=== PATIENT | male | born 1935 | race American Indian/Alaskan Native ===

== ENCOUNTER 2021-07-01 02:51 | Emergency (ER) | payer MEDICARE, OTHER ==
--- NOTE | 2021-07-01 03:46 | Emergency Department Report ---
HPI - General Chief Complaint: Hypoglycemia Time Seen by Provider: 07/01/21 03:30 - HPI HPI: Room 4 The patient is an 86-year-old male present with chief complaint of hypoglycemia. Patient was sent from [facility] after he found to be persistently hypoglycemic. Nursing staff says around midnight the patient called him telling them he feels the blood glucose is low. An Accu-Chek revealed his glucose was 65. Patient was given juice peanut butter and milk and repeat Accu-Chek was 55. The patient was again given juice peanut butter and milk and his third Accu-Chek was 48 at this time EMS was called and arrived on scene to find the patient hypoglycemic at 24. Patient was given 100 mils of D10 and had a glucose of 97. Upon arrival to the ED patient had a glucose of 266. Patient currently denies complaints. Jeannette Duggan says the patient stutters at baseline and that he tested positive for Covid several days ago. ED Past Medical Hx - Past Medical History Hx Hypertension: Yes Hx Diabetes: Yes Hx Dementia: Yes Additional medical history: COVID - Surgical History Past Surgical History?: No - Family History Family history: no significant - Social History Smoking Status: Never Smoker Substance Use Type: None - Medications Home Medications: Home Medications Medication Instructions Recorded Confirmed Last Taken Type Amlodipine Besylate [Norvasc] 0 mg PO DAILY 09/07/14 09/07/14 09/06/14 History Aspirin [Aspirin BABY CHEW TAB] 81 mg PO DAILY 09/07/14 09/07/14 09/06/14 History 81 mg Insulin Lispro [HumaLOG VIAL] 5 units SUB-Q HS 09/07/14 09/07/14 09/06/14 History 5 units lisinopriL [Zestril TAB] 0 mg PO QDAY 09/07/14 09/07/14 09/06/14 History Azithromycin [Zithromax TAB] 500 mg PO QDAY 2 Days tablet 09/08/14 Unknown Rx guaiFENesin/CODEINE [Robitussin AC] 15 ml PO Q4H PRN #120 oral.liqd 09/08/14 Unknown Rx ED Review of Systems ROS: Stated complaint: LOW BLOOD SUGAR Other details as noted in HPI Constitutional: no symptoms reported Eyes: denies: eye pain ENT: denies: throat pain Respiratory: no symptoms reported Cardiovascular: denies: chest pain Endocrine: no symptoms reported Gastrointestinal: denies: abdominal pain Genitourinary: denies: dysuria Musculoskeletal: denies: back pain Neurological: denies: headache Physical Exam - Physical Exam Vital Signs: Vital Signs 07/01/21 02:58 Temperature 98.2 F Pulse Rate 68 Respiratory 18 Rate Blood Pressure 178/87 [Right] O2 Sat by Pulse 98 Oximetry Physical Exam: GENERAL: The patient is well-developed well-nourished male lying on stretcher not appearing to be in acute distress. [] HEENT: Normocephalic. Atraumatic. Extraocular motions are intact. Patient has moist mucous membranes. NECK: Supple. Trachea midline CHEST/LUNGS: Clear to auscultation. There is no respiratory distress noted. HEART/CARDIOVASCULAR: Regular. There is no tachycardia. There is no gallop rub or murmur. ABDOMEN: Abdomen is soft, nontender. Patient has normal bowel sounds. There is no abdominal distention. SKIN: There is no rash. There is no edema. There is no diaphoresis. NEURO: The patient is awake, alert, and oriented. The patient is cooperative. The patient has no focal neurologic deficits. The patient has normal speech. GCS 15 MUSCULOSKELETAL: There is no evidence of acute injury. ED Course Vital Signs 07/01/21 02:58 Temperature 98.2 F Pulse Rate 68 Respiratory 18 Rate Blood Pressure 178/87 [Right] O2 Sat by Pulse 98 Oximetry - Reevaluation(s) Reevaluation #1: 07/01/21 05:23 Glucose 230s Patient has been maintaining his glucose for 2.5 hours ED Medical Decision Making - Lab Data Result diagrams: 07/01/21 03:57 07/01/21 03:57 Laboratory Tests 07/01/21 07/01/21 07/01/21 03:23 03:57 03:57 WBC 5.0 RBC 3.77 Hgb 11.3 L Hct 35.7 MCV 95 H MCH 30 MCHC 32 RDW 13.0 L Plt Count 197 Lymph % (Auto) 21.0 [place] % (Auto) 5.7 Eos % (Auto) 1.7 Baso % (Auto) Rubber [place] Lymph # (Auto) 1.1 L [place] # (Auto) 0.3 Eos # (Auto) 0.1 Baso # (Auto) 0.0 Seg Neutrophils % 71.4 H Seg Neutrophils # 3.6 Sodium 137 Potassium 4.3 Chloride 98.0 Carbon Dioxide 23 Anion Gap 20 BUN 22 H Creatinine 1.5 H Estimated GFR 54 BUN/Creatinine Ratio 15 Glucose 341 H POC Glucose 266 H Calcium 9.5 - Differential Diagnosis Hypoglycemia Critical care attestation.: If time is entered above; I have spent that time in minutes in the direct care of this critically ill patient, excluding procedure time. ED Disposition Clinical Impression: Hypoglycemia Disposition: 03 RETIREMENT FACILITY Is pt being admited?: No Does the pt Need Aspirin: No Condition: Stable Additional Instructions: Return to the emergency department should you develop worsening symptoms, inability to tolerate food or liquids, high fever or any other concerns Referrals: PRIMARY CAREMD [Primary Care Provider] - 3-5 Days Time of Disposition: 05:24
[2021-07-01 04:22] LABS: Calcium 9.5 mg/dL (8.4-10.2)
[2021-07-01 04:25] LABS: Eosinophils # (Auto) 0.1 K/mm3 (0.0-0.4); Eosinophils % (Auto) 1.7 % (0.0-4.3); Hematocrit 35.7 % (35.5-45.6); Hemoglobin 11.3 gm/dl (11.8-15.2); Lymphocytes # (Auto) 1.1 K/mm3 (1.2-5.4); Mean Corpuscular HGB Conc 32 % (32-34); Mean Corpuscular Volume 95 fl (84-94); Monocytes # (Auto) 0.3 K/mm3 (0.0-0.8); Monocytes % (Auto) 5.7 % (0.0-7.3); Platelet Count 197 K/mm3 (140-440); Red Blood Count 3.77 M/mm3 (3.65-5.03)
[2021-07-01] MEDS ORDERED: SUCCINYLCHOLINE CHLORIDE 200 MG/10 ML INJ MDV ONE (06:20)
[2021-07-01] MEDS ORDERED: ETOMIDATE 20 MG/10 ML INJ IV ONE (06:20)
[2021-07-01 06:46] VITALS: BP 169/78
== END 2021-07-01 12:10 ==
LOC: ED 02:51
DX: E16.2 Hypoglycemia, unspecified (principal); I10 Essential (primary) hypertension; E11.8 Type 2 diabetes mellitus with unspecified complications
CPT/HCPCS: 36415; 80048; 82962; 85025; 99283; J0330; J3490

== ENCOUNTER 2021-09-23 16:28 | Emergency (ER) | payer MEDICARE, OTHER ==
--- NOTE | 2021-09-23 17:14 | Emergency Department Report ---
ED Altered Mental Status HPI - General Chief Complaint: Psych Stated Complaint: MH EVAL Time Seen by Provider: 09/23/21 17:04 Source: EMS Mode of arrival: Stretcher Limitations: No Limitations - History of Present Illness Initial Comments: Chief complaint: "I am here to have my eyes checked." HPI: This is an 86-year-old male with history of vascular dementia, glaucoma, hypertension, diabetes mellitus who was sent here from assisted living facility for agitation. He reported to triage nurse that caretakers are not helping him with his car. He denies any other concerns. POA daughter Awilda Hutchinson at [phone]. She was able to give additional information. Patient was combative. He was throwing objects according to the report given to her by the assisted living facility attendance. She informed me that he tends to act out when he desires attention. He has been asking for his eyes to be evaluated for the past 2 weeks. She has made an appointment through the [facility] scheduled on . [facility] Complaint: other (Agitation) -: Gradual, This afternoon Severity: mild Consistency of Symptoms: waxing and waning Associated Symptoms: other ("I need my eyes checked.") - Related Data Home Medications Medication Instructions Recorded Confirmed Last Taken Amlodipine Besylate [Norvasc] 10 mg PO DAILY 09/07/14 09/24/21 09/06/14 Aspirin [Aspirin BABY CHEW TAB] 81 mg PO DAILY 09/07/14 09/24/21 09/06/14 81 mg lisinopriL [Zestril TAB] 40 mg PO QDAY 09/07/14 09/24/21 09/06/14 AtorvaSTATin [Lipitor] 20 mg PO QHS 09/24/21 09/24/21 Unknown Brimonidine Tartrate [Brimonidine 1 drop OP Q8HR 09/24/21 09/24/21 Unknown Tartrate 0.2%] Cyanocobalamin (Vitamin B-12) 500 mg PO QDAY 09/24/21 09/24/21 Unknown [Vitamin B-12] Fluorometholone [Fml S.o.p] 3.5 gm OP QDAY 09/24/21 09/24/21 Unknown Insulin Aspart Flexpen 12 units SUB-Q ACHS 09/24/21 09/24/21 Unknown Latanoprost 0.005% 1 drop OP HS 09/24/21 09/24/21 Unknown Melatonin 3MG TAB 3 mg PO HS 09/24/21 09/24/21 Unknown Metformin 2,000 mg PO DAILY 09/24/21 09/24/21 Unknown Methazolamide 500 mg PO BID 09/24/21 09/24/21 Unknown Omeprazole 20 mg PO QDAY 09/24/21 09/24/21 Unknown Sertraline [Zoloft] 150 mg PO QDAY 09/24/21 09/24/21 Unknown Sildenafil Citrate 50 mg PO 1XW PRN MDD 1 TAB 09/24/21 09/24/21 Unknown buPROPion HCL [Bupropion Xl] 150 mg PO QDAY 09/24/21 09/24/21 Unknown carvediloL [Coreg] 12.5 mg PO BID 09/24/21 09/24/21 Unknown risperiDONE [RisperDAL] 0.5 mg PO QHS 09/24/21 09/24/21 Unknown Allergies Allergy/AdvReac Type Severity Reaction Status Date / Time No Known Allergies Allergy Verified 09/23/21 16:39 ED Review of Systems ROS: Stated complaint: MH EVAL Other details as noted in HPI Comment: Unobtainable due to pts medical conditions (Dementia) ED Past Medical Hx - Past Medical History Previous Medical History?: Yes Hx Hypertension: Yes Hx Diabetes: Yes Hx Dementia: Yes Additional medical history: COVID - Surgical History Additional Surgical History: Unable to obtain this information - Family History Family history: no significant - Social History Smoking Status: Never Smoker Substance Use Type: None - Medications Home Medications: Home Medications Medication Instructions Recorded Confirmed Last Taken Type Amlodipine Besylate [Norvasc] 10 mg PO DAILY 09/07/14 09/24/21 09/06/14 History Aspirin [Aspirin BABY CHEW TAB] 81 mg PO DAILY 09/07/14 09/24/21 09/06/14 History 81 mg lisinopriL [Zestril TAB] 40 mg PO QDAY 09/07/14 09/24/21 09/06/14 History AtorvaSTATin [Lipitor] 20 mg PO QHS 09/24/21 09/24/21 Unknown History Brimonidine Tartrate [Brimonidine 1 drop OP Q8HR 09/24/21 09/24/21 Unknown History Tartrate 0.2%] Cyanocobalamin (Vitamin B-12) 500 mg PO QDAY 09/24/21 09/24/21 Unknown History [Vitamin B-12] Fluorometholone [Fml S.o.p] 3.5 gm OP QDAY 09/24/21 09/24/21 Unknown History Insulin Aspart Flexpen 12 units SUB-Q ACHS 09/24/21 09/24/21 Unknown History Latanoprost 0.005% 1 drop OP HS 09/24/21 09/24/21 Unknown History Melatonin 3MG TAB 3 mg PO HS 09/24/21 09/24/21 Unknown History Metformin 2,000 mg PO DAILY 09/24/21 09/24/21 Unknown History Methazolamide 500 mg PO BID 09/24/21 09/24/21 Unknown History Omeprazole 20 mg PO QDAY 09/24/21 09/24/21 Unknown History Sertraline [Zoloft] 150 mg PO QDAY 09/24/21 09/24/21 Unknown History Sildenafil Citrate 50 mg PO 1XW PRN MDD 1 TAB 09/24/21 09/24/21 Unknown History buPROPion HCL [Bupropion Xl] 150 mg PO QDAY 09/24/21 09/24/21 Unknown History carvediloL [Coreg] 12.5 mg PO BID 09/24/21 09/24/21 Unknown History risperiDONE [RisperDAL] 0.5 mg PO QHS 09/24/21 09/24/21 Unknown History ED Physical Exam - General Limitations: No Limitations General appearance: alert, in no apparent distress, other (GCS 14: Unclear of location or date. Sitting upright comfortably with legs crossed left ankle. Cooperative) - Head Head exam: Present: atraumatic, normocephalic - Eye Eye exam: Absent: scleral icterus, conjunctival injection - ENT ENT exam: Present: mucous membranes moist - Neck Neck exam: Present: normal inspection, full ROM - Respiratory Respiratory exam: Present: normal lung sounds bilaterally. Absent: respiratory distress, wheezes, rales, rhonchi - Cardiovascular Cardiovascular Exam: Present: regular rate, normal rhythm, normal heart sounds. Absent: systolic murmur, diastolic murmur, rubs, gallop - GI/Abdominal GI/Abdominal exam: Present: soft, normal bowel sounds. Absent: distended, tenderness, guarding, rebound - Rectal Rectal exam: Present: deferred - Extremities Exam Extremities exam: Present: normal inspection - Neurological Exam Neurological exam: Present: alert, other (Oriented to name, unclear of place date location or situation) - Psychiatric Psychiatric exam: Present: agitated (Slightly agitated but cooperative) - Skin Skin exam: Present: warm, dry, intact, normal color. Absent: rash ED Course Vital Signs 09/23/21 09/23/21 09/23/21 16:36 20:23 23:08 Temperature 98.4 F Pulse Rate 82 73 78 Respiratory 16 14 15 Rate Blood Pressure 145/76 Blood Pressure 152/68 145/76 156/79 [Left] O2 Sat by Pulse 100 98 99 Oximetry 09/24/21 09/24/21 09/24/21 00:30 01:47 04:33 Temperature Pulse Rate 74 79 73 Respiratory 15 17 12 Rate Blood Pressure Blood Pressure 154/79 134/74 130/69 [Left] O2 Sat by Pulse 98 97 97 Oximetry 09/24/21 09/24/21 09/24/21 05:29 06:00 07:00 Temperature Pulse Rate 72 72 70 Respiratory 14 15 13 Rate Blood Pressure Blood Pressure 125/66 139/68 119/63 [Left] O2 Sat by Pulse 98 98 97 Oximetry 09/24/21 09/24/21 09/24/21 09:21 10:06 11:28 Temperature Pulse Rate 73 76 Respiratory 12 Rate Blood Pressure Blood Pressure 121/69 129/75 [Left] O2 Sat by Pulse 99 99 Oximetry 09/24/21 13:53 Temperature Pulse Rate 79 Respiratory Rate Blood Pressure Blood Pressure 147/78 [Left] O2 Sat by Pulse Oximetry - Lab Data Result diagrams: 09/23/21 17:13 09/23/21 17:13 Lab Results 09/23/21 09/23/21 09/23/21 Range/Units 17:13 17:13 17:33 WBC 4.8 (4.5-11.0) K/mm3 RBC 3.38 L (3.65-5.03) M/mm3 Hgb 10.1 L (11.8-15.2) gm/dl Hct 31.5 L (35.5-45.6) % MCV 93 (84-94) fl MCH 30 (28-32) pg MCHC 32 (32-34) % RDW 14.3 (13.2-15.2) % Plt Count 221 (140-440) K/mm3 Lymph % (Auto) 37.7 H (13.4-35.0) % [place] % (Auto) 11.4 H (0.0-7.3) % Eos % (Auto) 5.0 H (0.0-4.3) % Baso % (Auto) 0.9 (0.0-1.8) % Lymph # (Auto) 1.8 (1.2-5.4) K/mm3 [place] # (Auto) 0.5 (0.0-0.8) K/mm3 Eos # (Auto) 0.2 (0.0-0.4) K/mm3 Baso # (Auto) 0.0 (0.0-0.1) K/mm3 Seg Neutrophils % 45.0 (40.0-70.0) % Seg Neutrophils # 2.2 (1.8-7.7) K/mm3 Sodium 139 (137-145) mmol/L Potassium 4.8 (3.6-5.0) mmol/L Chloride 104.9 (98-107) mmol/L Carbon Dioxide 22 (22-30) mmol/L Anion Gap 17 mmol/L BUN 16 (9-20) mg/dL Creatinine 1.4 H (0.8-1.3) mg/dL Estimated GFR 58 ml/min BUN/Creatinine Ratio 11 % Glucose 173 H (75-100) mg/dL Calcium 9.5 (8.4-10.2) mg/dL Urine Color (Yellow) Urine Turbidity (Clear) Urine pH (5.0-7.0) Ur Specific [place] (1.003-1.030) Urine Protein (Negative) mg/dL Urine Glucose (UA) (Negative) mg/dL Urine Ketones (Negative) mg/dL Urine Blood (Negative) Urine Nitrite (Negative) Urine Bilirubin (Negative) Urine Urobilinogen (<2.0) mg/dL Ur Leukocyte Esterase (Negative) Urine WBC (Auto) (0.0-6.0) /HPF Urine RBC (Auto) (0.0-6.0) /HPF Salicylates < 0.3 L (2.8-20.0) mg/dL Acetaminophen (10.0-30.0) ug/mL Plasma/Serum Alcohol (0-0.07) % Coronavirus (PCR) (Negative) 09/23/21 09/23/21 09/24/21 Range/Units 17:33 17:33 03:22 WBC (4.5-11.0) K/mm3 RBC (3.65-5.03) M/mm3 Hgb (11.8-15.2) gm/dl Hct (35.5-45.6) % MCV (84-94) fl MCH (28-32) pg MCHC (32-34) % RDW (13.2-15.2) % Plt Count (140-440) K/mm3 Lymph % (Auto) (13.4-35.0) % [place] % (Auto) (0.0-7.3) % Eos % (Auto) (0.0-4.3) % Baso % (Auto) (0.0-1.8) % Lymph # (Auto) (1.2-5.4) K/mm3 [place] # (Auto) (0.0-0.8) K/mm3 Eos # (Auto) (0.0-0.4) K/mm3 Baso # (Auto) (0.0-0.1) K/mm3 Seg Neutrophils % (40.0-70.0) % Seg Neutrophils # (1.8-7.7) K/mm3 Sodium (137-145) mmol/L Potassium (3.6-5.0) mmol/L Chloride (98-107) mmol/L Carbon Dioxide (22-30) mmol/L Anion Gap mmol/L BUN (9-20) mg/dL Creatinine (0.8-1.3) mg/dL Estimated GFR ml/min BUN/Creatinine Ratio % Glucose (75-100) mg/dL Calcium (8.4-10.2) mg/dL Urine Color Yellow (Yellow) Urine Turbidity Clear (Clear) Urine pH 6.0 (5.0-7.0) Ur Specific [place] 1.009 (1.003-1.030) Urine Protein <15 mg/dl (Negative) mg/dL Urine Glucose (UA) Neg (Negative) mg/dL Urine Ketones Neg (Negative) mg/dL Urine Blood Neg (Negative) Urine Nitrite Neg (Negative) Urine Bilirubin Neg (Negative) Urine Urobilinogen 2.0 (<2.0) mg/dL Ur Leukocyte Esterase Neg (Negative) Urine WBC (Auto) < 1.0 (0.0-6.0) /HPF Urine RBC (Auto) 1.0 (0.0-6.0) /HPF Salicylates (2.8-20.0) mg/dL Acetaminophen 5.0 L (10.0-30.0) ug/mL Plasma/Serum Alcohol < 0.01 (0-0.07) % Coronavirus (PCR) (Negative) 09/24/21 Range/Units Unknown WBC (4.5-11.0) K/mm3 RBC (3.65-5.03) M/mm3 Hgb (11.8-15.2) gm/dl Hct (35.5-45.6) % MCV (84-94) fl MCH (28-32) pg MCHC (32-34) % RDW (13.2-15.2) % Plt Count (140-440) K/mm3 Lymph % (Auto) (13.4-35.0) % [place] % (Auto) (0.0-7.3) % Eos % (Auto) (0.0-4.3) % Baso % (Auto) (0.0-1.8) % Lymph # (Auto) (1.2-5.4) K/mm3 [place] # (Auto) (0.0-0.8) K/mm3 Eos # (Auto) (0.0-0.4) K/mm3 Baso # (Auto) (0.0-0.1) K/mm3 Seg Neutrophils % (40.0-70.0) % Seg Neutrophils # (1.8-7.7) K/mm3 Sodium (137-145) mmol/L Potassium (3.6-5.0) mmol/L Chloride (98-107) mmol/L Carbon Dioxide (22-30) mmol/L Anion Gap mmol/L BUN (9-20) mg/dL Creatinine (0.8-1.3) mg/dL Estimated GFR ml/min BUN/Creatinine Ratio % Glucose (75-100) mg/dL Calcium (8.4-10.2) mg/dL Urine Color (Yellow) Urine Turbidity (Clear) Urine pH (5.0-7.0) Ur Specific [place] (1.003-1.030) Urine Protein (Negative) mg/dL Urine Glucose (UA) (Negative) mg/dL Urine Ketones (Negative) mg/dL Urine Blood (Negative) Urine Nitrite (Negative) Urine Bilirubin (Negative) Urine Urobilinogen (<2.0) mg/dL Ur Leukocyte Esterase (Negative) Urine WBC (Auto) (0.0-6.0) /HPF Urine RBC (Auto) (0.0-6.0) /HPF Salicylates (2.8-20.0) mg/dL Acetaminophen (10.0-30.0) ug/mL Plasma/Serum Alcohol (0-0.07) % Coronavirus (PCR) Negative (Negative) - Medical Decision Making This is an 86-year-old male with history of glaucoma, vascular dementia who presents to the hospital to have his "eyes checked". His vision appears to be unchanged according to his report. 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 He only has 20% vision in either eye according to his report. Assisted-living facility reported to paramedics that patient has been agitated. Collateral history from daughter and POA reveals that patient was combative and throwing objects. He is medically clear for psychiatric care. Awaiting mental health recommendations. Daughter is agreeable for discharge back to assisted living facility or admission to geriatric psych unit. She did not have any acute concerns. He has history of destructive behavior as a result of dementia. I discussed case with mental health strike off machine operator. Mental health strike off machine operator recommended admission to [facility] once coronavirus PCR test returns as negative. Patient will be reevaluated in the morning. Patient is medically clear for psychiatric care. After 24 hour observation, mental health team has cleared patient for discharge. [facility] Coronavirus PCR negative. Urinalysis negative. CBC chemistry unremarkable. Critical care attestation.: If time is entered above; I have spent that time in minutes in the direct care of this critically ill patient, excluding procedure time. ED Disposition Clinical Impression: Dementia Disposition: 03 CARE HOME FACILITY Is pt being admited?: No Does the pt Need Aspirin: No Condition: Stable
[2021-09-23 17:40] LABS: Basophils % (Auto) 0.9 % (0.0-1.8); Eosinophils # (Auto) 0.2 K/mm3 (0.0-0.4); Hematocrit 31.5 % (35.5-45.6); Hemoglobin 10.1 gm/dl (11.8-15.2); Lymphocytes # (Auto) 1.8 K/mm3 (1.2-5.4); Lymphocytes % (Auto) 37.7 % (13.4-35.0); Mean Corpuscular HGB Conc 32 % (32-34); Mean Corpuscular Volume 93 fl (84-94); Monocytes # (Auto) 0.5 K/mm3 (0.0-0.8); Monocytes % (Auto) 11.4 % (0.0-7.3); Platelet Count 221 K/mm3 (140-440); Red Blood Count 3.38 M/mm3 (3.65-5.03); Red Cell Distribution Width 14.3 % (13.2-15.2)
[2021-09-23 18:04] LABS: Calcium 9.5 mg/dL (8.4-10.2)
[2021-09-24 03:55] LABS: Bilirubin,Urine NEG (Negative); Blood,Urine NEG (Negative); Color,Urine Yellow (Yellow); Protein,Urine <15 mg/dL mg/dL (Negative)
[2021-09-24 04:00] LABS: WBC,Urine < 1.0 /HPF (0.0-6.0)
[2021-09-24 13:54] VITALS: BP 147/78
--- NOTE | 2021-09-24 14:10 | Consultation ---
History of Present Illness - Reason for Consult Consult date: 09/24/21 Reason for consult: mental health evaluation - History of Present Psychiatric Illness ED Note: This is an 86-year-old male with history of vascular dementia, glaucoma, hypertension, diabetes mellitus who was sent here from assisted living facility for agitation. He reported to triage nurse that caretakers are not helping him with his car. He denies any other concerns. POA daughter Awilda Hutchinson at [phone]. She was able to give additional information. Patient was combative. He was throwing objects according to the report given to her by the assisted living facility attendance. She informed me that he tends to act out when he desires attention. He has been asking for his eyes to be evaluated for the past 2 weeks. She has made an appointment through the [facility] scheduled on . The patient is an 86 year old male with history of Dementia. In my encounter with the patient, she is calm, alert and oriented x2. The patient states he stopped taking medications " because it was not doing any good. " The patient is complaining of his assisted living " they get left over food from another floor." He denies any current suicidal/homicidal ideation and denies hallucinations. No aggressive behavior reported by the nurse. Diagnoses: Schizophrenia Suicide attempts or Self-harm behavior: Unknown Prior psychiatric hospitalizations: Unknown Substance Abuse history: Denies Previous psychiatric medications tried: Unable to recall PAST MEDICAL HISTORY: unknown Family Psychiatric History: None reported or documented SOCIAL HISTORY REVIEW OF SYSTEMS Constitutional: Negative for weight loss ENT: Negative for stridor Respiratory: Negative for cough or hemoptysis All other systems reviewed and are negative MENTAL STATUS EXAMINATION General Appearance and Behavior: Age appropriate, good hygiene, wearing appropriate clothes, calm, cooperative Cooperation: Participating/engaged Psychomotor Behavior: Normal Mood: "ok" Affect and affective range: congruent with mood Thought Process: Goal directed Thought Content: Reality oriented Speech: Normal volume, Regular rate and rhythm, Suicidal Ideation: Denies Homicidal Ideation: Denies Hallucinations: Denies Delusions: None elicited Impulse Control: Unimpaired Insight and Judgment: Limited insight and judgment, Memory: Normal, Attention: Normal Orientation: Alert, oriented x2 Assessment and Plan (1)Hx of Dementia Current Visit: Yes Status: Acute Treatment Plan The patient needs to follow up with his outpatient psychiatrist and therapist. Continue home meds Disposition: Do not recommend psychiatric inpatient admission at this time. [employer] will provide patient with psychiatric outpatient resources. Will sign off. Thanks Case staffed with Dr. Arreguin Medications and Allergies Medications and Allergies Allergies Allergy/AdvReac Type Severity Reaction Status Date / Time No Known Allergies Allergy Verified 09/23/21 16:39 Home Medications Medication Instructions Recorded Confirmed Last Taken Type Amlodipine Besylate [Norvasc] 0 mg PO DAILY 09/07/14 09/07/14 09/06/14 History Aspirin [Aspirin BABY CHEW TAB] 81 mg PO DAILY 09/07/14 09/07/14 09/06/14 History 81 mg Insulin Lispro [HumaLOG VIAL] 5 units SUB-Q HS 09/07/14 09/07/14 09/06/14 History 5 units lisinopriL [Zestril TAB] 0 mg PO QDAY 09/07/14 09/07/14 09/06/14 History Azithromycin [Zithromax TAB] 500 mg PO QDAY 2 Days tablet 09/08/14 Unknown Rx guaiFENesin/CODEINE [Robitussin AC] 15 ml PO Q4H PRN #120 oral.liqd 09/08/14 Unknown Rx Mental Status Exam - Vital signs Last Vital Signs Temp 98.4 F 09/23/21 16:36 Pulse 79 09/24/21 13:53 Resp 12 09/24/21 09:21 BP 147/78 09/24/21 13:53 Pulse Ox 99 09/24/21 11:28 Results Result Diagrams: 09/23/21 17:13 09/23/21 17:13 Abnormal lab results 09/23/21 09/23/21 09/23/21 Range/Units 17:13 17:13 17:33 RBC 3.38 L (3.65-5.03) M/mm3 Hgb 10.1 L (11.8-15.2) gm/dl Hct 31.5 L (35.5-45.6) % Lymph % (Auto) 37.7 H (13.4-35.0) % [place] % (Auto) 11.4 H (0.0-7.3) % Eos % (Auto) 5.0 H (0.0-4.3) % Creatinine 1.4 H (0.8-1.3) mg/dL Glucose 173 H (75-100) mg/dL Salicylates < 0.3 L (2.8-20.0) mg/dL Acetaminophen (10.0-30.0) ug/mL 09/23/21 Range/Units 17:33 RBC (3.65-5.03) M/mm3 Hgb (11.8-15.2) gm/dl Hct (35.5-45.6) % Lymph % (Auto) (13.4-35.0) % [place] % (Auto) (0.0-7.3) % Eos % (Auto) (0.0-4.3) % Creatinine (0.8-1.3) mg/dL Glucose (75-100) mg/dL Salicylates (2.8-20.0) mg/dL Acetaminophen 5.0 L (10.0-30.0) ug/mL All other labs normal.
== END 2021-09-24 21:01 ==
LOC: ED 16:28
DX: F03.90 Unspecified dementia, unspecified severity, without behavioral disturbance, psychotic disturbance, mood disturbance, and anxiety (principal); I10 Essential (primary) hypertension; E11.9 Type 2 diabetes mellitus without complications; Z20.822 Contact with and (suspected) exposure to COVID-19
CPT/HCPCS: 36415; 80048; 81001; 82962; 85025; 99284; U0003; 80320; G0480

== ENCOUNTER 2021-12-26 16:58 | Inpatient (IN) | payer MEDICARE ==
[2021-12-27] MEDS ORDERED: METHAZOLAMIDE 50 MG PO SCH (10:45)
[2021-12-27] MEDS ORDERED: FLUOROMETHOLONE OP SCH (10:45)
[2021-12-27] MEDS ORDERED: NON-FORMULARY EACH (Omeprazole [Omeprazole] 20 MG Capsule.Dr) PO SCH (10:45)
[2021-12-27] MEDS ORDERED: NON-FORMULARY EACH (Amlodipine Besylate [Norvasc] 2.5 MG Tablet) PO SCH (10:45)
[2021-12-27] MEDS ORDERED: CYANOCOBALAMIN 500 MCG PO SCH (10:45)
[2021-12-27] MEDS ORDERED: LISINOPRIL 5 MG TAB PO SCH (11:00)
[2021-12-27] MEDS ORDERED: INSULIN ASPART 12 UNIT SUB-Q SCH (11:30)
--- NOTE | 2021-12-27 12:19 | Consultation ---
History of Present Illness - Reason for Consult Consult date: 12/27/21 Medical Management Requesting physician: THA FLORES - History of Present Illness 86 YO Male with Vascular Dementia with Behavioral Disturbance, Cerebral Atherosclerosis, HTN, HLD, DM, GERD, CKD, MARGARETH admitted to [facility] unit for psychiatric stabilization. Consult placed by Dr. Flores for medical management. Patient seen and evaluated in the recreation room. Patient resting calmly. Patient denies fever, chills, chest pain, palpitation, productive cough, skin rash, recent contact, known exposure to COVID-19. Patient has diminished cognition but appears to be at baseline level of cognition and function. Past History Past Medical History: diabetes, GERD, hypertension, hyperlipidemia, renal failure Past Surgical History: No surgical history, Other (Reviewed) Social history: . denies: smoking, alcohol abuse, prescription drug abuse Family history: diabetes, hypertension Medications and Allergies Allergies Allergy/AdvReac Type Severity Reaction Status Date / Time No Known Allergies Allergy Verified 09/23/21 16:39 Home Medications Medication Instructions Recorded Confirmed Last Taken Type Amlodipine Besylate [Norvasc] 10 mg PO DAILY 09/07/14 12/27/21 09/06/14 History Aspirin [Aspirin BABY CHEW TAB] 81 mg PO DAILY 09/07/14 12/27/21 09/06/14 History 81 mg lisinopriL [Zestril TAB] 40 mg PO QDAY 09/07/14 12/27/21 09/06/14 History AtorvaSTATin [Lipitor] 20 mg PO QHS 09/24/21 12/27/21 Unknown History Brimonidine Tartrate [Brimonidine 1 drop OP Q8HR 09/24/21 12/27/21 Unknown History Tartrate 0.2%] Cyanocobalamin (Vitamin B-12) 500 mg PO QDAY 09/24/21 12/27/21 Unknown History [Vitamin B-12] Fluorometholone [Fml S.o.p] 3.5 gm OP QDAY 09/24/21 12/27/21 Unknown History Insulin Aspart Flexpen 12 units SUB-Q ACHS 09/24/21 12/27/21 Unknown History Omeprazole 20 mg PO QDAY 09/24/21 12/27/21 Unknown History Sertraline [Zoloft] 150 mg PO QDAY 09/24/21 12/27/21 Unknown History Sildenafil Citrate 50 mg PO 1XW PRN MDD 1 TAB 09/24/21 12/27/21 Unknown History buPROPion HCL [Bupropion Xl] 150 mg PO QDAY 09/24/21 12/27/21 Unknown History carvediloL [Coreg] 25 mg PO BID 09/24/21 12/27/21 Unknown History risperiDONE [RisperDAL] 0.5 mg PO QHS 09/24/21 12/27/21 Unknown History Latanoprost 0.005% [Xalatan 0.005%] 1 drop OP QPM 12/27/21 12/27/21 Unknown History Melatonin [Melatonin 3MG TAB] 3 mg PO HS 12/27/21 12/27/21 Unknown History metFORMIN XR [Glucophage XR] 500 mg PO QDAY 12/27/21 12/27/21 Unknown History methazolAMIDE [Methazolamide] 50 mg PO BID 12/27/21 12/27/21 Unknown History Active Meds: Active Medications Aspirin (Aspirin 81 Mg Tab Chew) 81 mg PO DAILY [facility] Atorvastatin Calcium (Atorvastatin 20 Mg Tab) 20 mg PO QHS [facility] Bupropion HCl (Bupropion Xl 150 Mg Tab) 150 mg PO QDAY [facility] Carvedilol (Carvedilol 25 Mg Tab) 25 mg PO BID [facility] Insulin Human Lispro (Insulin Lispro 100 Unit/Ml) 12 unit SUB-Q ACHS [facility] Latanoprost (Latanoprost 0.005% Ophth Soln 2.5 Ml) 1 drops OU QPM [facility] Lisinopril (Lisinopril 40 Mg Tab) 40 mg PO QDAY [facility] Melatonin (Melatonin 5 Mg Tab) 5 mg PO QHS [facility] Metformin HCl (Metformin Xr 500mg Tab) 500 mg PO QDDIAB [facility] Miscellaneous Medication (Amlodipine Besylate [Norvasc]) 10 mg PO DAILY [facility] Miscellaneous Medication (Brimonidine Tartrate [Brimonidine Tartrate 0.2%]) 1 drop OP Q8HR [facility] Miscellaneous Medication (Cyanocobalamin (Vitamin B-12) [Vitamin B-12]) 500 mg PO QDAY [facility] Miscellaneous Medication (Fluorometholone [Fml S.O.P. 0.25%]) 3.5 gm OP QDAY [facility] Miscellaneous Medication (Methazolamide [Methazolamide]) 50 mg PO BID [facility] Pantoprazole Sodium (Pantoprazole 20 Mg Tab) 20 mg PO QDAY [facility] Risperidone (Risperidone 1 Mg Tab) 0.5 mg PO QHS [facility] Sertraline HCl (Sertraline 50 Mg Tab) 150 mg PO QDAY [facility] Review of Systems Constitutional: no weight loss, no weight gain, no fever, no chills Ears, nose, mouth and throat: no ear pain, no ear discharge, no decreased hea ring, no nose pain, no nasal discharge Cardiovascular: no chest pain, no orthopnea, no palpitations, no edema Respiratory: no cough, no cough with sputum, no excessive sputum Gastrointestinal: no abdominal pain, no nausea, no diarrhea, no constipation, no change in bowel habits Genitourinary Male: no hematuria, no flank pain, no discharge, no urinary frequency, no urinary hesitancy Rectal: no pain, no incontinence, no bleeding Musculoskeletal: no neck stiffness, no shooting leg pain, no redness of joints Integumentary: no rash, no pruritis, no sores, no wounds Neurological: no head injury, no transient paralysis, no paralysis, no parathesias, no numbness, no syncope Psychiatric: anxiety, mood swings Endocrine: no cold intolerance, no polyphagia, no excessive thirst Hematologic/Lymphatic: no easy bruising, no easy bleeding Allergic/Immunologic: no allergic rhinitis, no wheezing Exam - Constitutional Vitals: Temp Pulse Resp BP Pulse Ox 97.5 F L 85 16 130/75 98 12/27/21 11:06 12/27/21 11:06 12/27/21 11:06 12/27/21 11:06 12/27/21 11:06 General appearance: Present: no acute distress - EENT Eyes: Present: PERRL ENT: clear oral mucosa, hearing decreased - Neck Neck: Present: supple, normal ROM - Respiratory Respiratory effort: normal Respiratory: bilateral: diminished - Cardiovascular Heart Sounds: Present: S1 & S2. Absent: rub, click - Extremities Extremities: pulses symmetrical, No edema Peripheral Pulses: within normal limits - Abdominal General gastrointestinal: Present: soft, non-tender, non-distended, normal bowel sounds Male genitourinary: Present: normal - Integumentary Integumentary: Present: clear, warm, dry - Musculoskeletal Musculoskeletal: gait normal, strength equal bilaterally - Psychiatric Psychiatric: cooperative - Neurologic Neurologic: CNII-XII intact, moves all extremities Assessment and Plan - Patient Problems (1) Vascular dementia with behavioral disturbance Current Visit: Yes Status: Acute Plan to address problem: Verbal prompting, verbal redirection, benzodiazepine therapy as clinically indicated. (2) Cerebral atherosclerosis Current Visit: Yes Status: Acute Plan to address problem: Antiplatelet therapy as clinically indicated, risk factor reduction. (3) Hypertension Current Visit: Yes Status: Acute Qualifiers: Hypertension type: primary hypertension Qualified Code(s): I10 - Essential (primary) hypertension Plan to address problem: Monitor blood pressure every shift, continue medical management. (4) Hyperlipidemia Current Visit: Yes Status: Acute Qualifiers: Hyperlipidemia type: mixed hyperlipidemia Qualified Code(s): E78.2 - Mixed hyperlipidemia Plan to address problem: Statin therapy, low-cholesterol diet (5) Diabetes Current Visit: Yes Status: Acute Plan to address problem: Consistent carbohydrate diet, Accu-Chek, continue oral antihyperglycemic therapy, hypoglycemia protocol. (6) Advance care planning Current Visit: Yes Status: Acute Plan to address problem: Disease education done, care plan discussed, diagnoses discussed, prognosis discussed, patient is full code. Patient acknowledges understanding and agreement with care plan, +30 minutes. (7) Preventative health care Current Visit: Yes Status: Acute Plan to address problem: Patient counseled regarding risk factor reduction, home safety measures, outpatient follow-up with primary care physician for all age and risk factor appropriate screening test, +30 minutes.
[2021-12-27] MEDS: buPROPion XL 150 MG TAB PO SCH (12:45)
[2021-12-27] MEDS: ASPIRIN 81 MG TAB CHEW PO SCH (12:45)
[2021-12-27] MEDS: PANTOPRAZOLE 20 MG TAB PO SCH (12:45)
[2021-12-27] MEDS: SERTRALINE 50 MG TAB PO SCH (12:45)
[2021-12-27] MEDS: carvediloL 25 MG TAB PO SCH ×2 (12:46→21:04)
[2021-12-27] MEDS: metFORMIN XR 500MG TAB PO SCH (12:47)
[2021-12-27] MEDS: LISINOPRIL 40 MG TAB PO SCH (12:50)
[2021-12-27] MEDS: INSULIN LISPRO 100 UNIT/ML SUB-Q SCH ×3 (12:51→21:20)
[2021-12-27] MEDS ORDERED: NON-FORMULARY EACH (Brimonidine Tartrate [Brimonidine Tartrate 0.2%] 15 ML Drops) OP SCH (14:00)
[2021-12-27] MEDS: BRIMONIDINE 0.15% OPHTH SOLN OU SCH ×2 (14:54→21:05)
[2021-12-27] MEDS: amLODIPine 10 MG TAB PO SCH (14:55)
[2021-12-27] MEDS: LATANOPROST 0.005% OPHTH SOLN 2.5 ML OU SCH (18:02)
[2021-12-27] MEDS: risperiDONE 1 MG TAB PO SCH (21:02)
[2021-12-27] MEDS: MELATONIN 5 MG TAB PO SCH (21:03)
[2021-12-27] MEDS ORDERED: NON-FORMULARY EACH (Melatonin [Melatonin 3mg Tab] 3 MG Tablet) PO SCH (22:00)
[2021-12-28 00:21] LABS: Basophils % (Auto) 0.6 % (0.0-1.8); Eosinophils # (Auto) 0.1 K/mm3 (0.0-0.4); Hematocrit 30.8 % (35.5-45.6); Hemoglobin 10.1 gm/dl (11.8-15.2); Lymphocytes # (Auto) 2.1 K/mm3 (1.2-5.4); Mean Corpuscular HGB Conc 33 % (32-34); Mean Corpuscular Volume 92 fl (84-94); Monocytes # (Auto) 0.5 K/mm3 (0.0-0.8); Monocytes % (Auto) 12.7 % (0.0-7.3); Platelet Count 185 K/mm3 (140-440); Red Blood Count 3.33 M/mm3 (3.65-5.03); Red Cell Distribution Width 13.2 % (13.2-15.2)
[2021-12-28 01:45] LABS: Albumin 3.9 g/dL (3.9-5); Calcium 9.3 mg/dL (8.4-10.2); Chol/HDL Ratio 5.45 %
[2021-12-28] MEDS: BRIMONIDINE 0.15% OPHTH SOLN OU SCH ×3 (05:42→21:58)
[2021-12-28] MEDS: INSULIN LISPRO 100 UNIT/ML SUB-Q SCH ×4 (08:00→21:59)
--- NOTE | 2021-12-28 10:04 | History and Physical Report ---
GP History & Physical - History of Present Illness Date of admission: 12/27/21 Date of Examination: 12/28/21 Reason for Admission: Danger to self, Failure of Outpatient Treatment, Severe anxiety/depression History of Present Illness: HPI: Per referral source, patient present to ER from [facility] with aggressive behavior towards the staff. While the patient was with EMS apparently he states that he wanted to hurt himself. The patient was seen today. He has a history of HTN, GERD, Dementia, MARGARETH an CKD. He is lying in bed asleep. He easily arouses. He is a/o x 2. He has poor insight. The patient says he feels pretty good. He says he was brought by EMS because "they said I was acting strange." He says he came from a senior care. The patient says he slept good and has a good appetite. He denies SI/HI or hallucinations. PAST PSYCHIATRIC HISTORY: Unable to obtain PAST MEDICAL HISTORY: None reported Family Psychiatric History: None reported or documented SOCIAL HISTORY Unable to obtain REVIEW OF SYSTEMS Unable to obtain MENTAL STATUS EXAMINATION Unable to obtain Diagnoses: Dementia with Behavioral Disturbance Treatment Plan Patient admitted for inpatient psychiatric evaluation, medication adjustment and close monitoring The patient's behavior, mood, sleep and appetite will be closely monitored. Patient enrolled in individual and group therapeutic sessions and encouraged to attend. Patient provided with a safe and structured environment. Patient's physical health needs will be addressed by the Hospitalist. Hospitalist Consulted Labs including CBC, CMP, Lipid profile and Hemoglobin A1C levels ordered for baseline reference Social Assessment will be completed and the Electrical Engineering Technician will work with patient and family to ensure a suitable and safe disposition Medication adjustment will be made as clinically indicated Continue home meds Usual Wellness Sabianist/Preservation: - Start Trazodone 50 mg po QHS & 50 mg po QHS PRN between 10 PM & 2 AM for insomnia - Start Melatonin 5 mg po QHS to promote circadian rhythm The patient agreed on the treatment plan, understood the risk, benefit, alternative treatment, potential consequence of no treatment, and gave informed consent. Estimated days: 7 Post hospital care: primary care provider, psychiatric provider Case staffed with Dr. Arreguin Legal Status: Voluntary Patient Problems: Current Active Problems Advance care planning (Acute) Cerebral atherosclerosis (Acute) Diabetes (Acute) Hyperlipidemia (Acute) Hypertension (Acute) Preventative health care (Acute) Vascular dementia with behavioral disturbance (Acute) Reaction to Hospitalization: Accepting Medications and Allergies Allergies Allergy/AdvReac Type Severity Reaction Status Date / Time No Known Allergies Allergy Verified 09/23/21 16:39 Home Medications Medication Instructions Recorded Confirmed Last Taken Type Amlodipine Besylate [Norvasc] 10 mg PO DAILY 09/07/14 12/27/21 09/06/14 History Aspirin [Aspirin BABY CHEW TAB] 81 mg PO DAILY 09/07/14 12/27/21 09/06/14 Hist ory 81 mg lisinopriL [Zestril TAB] 40 mg PO QDAY 09/07/14 12/27/21 09/06/14 History AtorvaSTATin [Lipitor] 20 mg PO QHS 09/24/21 12/27/21 Unknown History Brimonidine Tartrate [Brimonidine 1 drop OP Q8HR 09/24/21 12/27/21 Unknown History Tartrate 0.2%] Cyanocobalamin (Vitamin B-12) 500 mg PO QDAY 09/24/21 12/27/21 Unknown History [Vitamin B-12] Fluorometholone [Fml S.o.p] 3.5 gm OP QDAY 09/24/21 12/27/21 Unknown History Insulin Aspart Flexpen 12 units SUB-Q ACHS 09/24/21 12/27/21 Unknown History Omeprazole 20 mg PO QDAY 09/24/21 12/27/21 Unknown History Sertraline [Zoloft] 150 mg PO QDAY 09/24/21 12/27/21 Unknown History Sildenafil Citrate 50 mg PO 1XW PRN MDD 1 TAB 09/24/21 12/27/21 Unknown History buPROPion HCL [Bupropion Xl] 150 mg PO QDAY 09/24/21 12/27/21 Unknown History carvediloL [Coreg] 25 mg PO BID 09/24/21 12/27/21 Unknown History risperiDONE [RisperDAL] 0.5 mg PO QHS 09/24/21 12/27/21 Unknown History Latanoprost 0.005% [Xalatan 0.005%] 1 drop OP QPM 12/27/21 12/27/21 Unknown History Melatonin [Melatonin 3MG TAB] 3 mg PO HS 12/27/21 12/27/21 Unknown History metFORMIN XR [Glucophage XR] 500 mg PO QDAY 12/27/21 12/27/21 Unknown History methazolAMIDE [Methazolamide] 50 mg PO BID 12/27/21 12/27/21 Unknown History Active Meds: Active Medications Amlodipine Besylate (Amlodipine 10 Mg Tab) 10 mg PO DAILY [facility] Last Admin: 12/27/21 14:55 Dose: 10 mg Aspirin (Aspirin 81 Mg Tab Chew) 81 mg PO DAILY [facility] Last Admin: 12/27/21 12:45 Dose: 81 mg Atorvastatin Calcium (Atorvastatin 20 Mg Tab) 20 mg PO QHS [facility] Last Admin: 12/27/21 21:03 Dose: 20 mg Brimonidine Tartrate (Brimonidine 0.15% Ophth Soln) 1 drops OU Q8HR [facility] Last Admin: 12/28/21 05:42 Dose: 1 drops Bupropion HCl (Bupropion Xl 150 Mg Tab) 150 mg PO QDAY [facility] Last Admin: 12/27/21 12:45 Dose: 150 mg Carvedilol (Carvedilol 25 Mg Tab) 25 mg PO BID [facility] Last Admin: 12/27/21 21:04 Dose: Not Given Cyanocobalamin (Cyanocobalamin (Vit B-12) 1000 Mcg Tab) 500 mcg PO QDAY [facility] Insulin Human Lispro (Insulin Lispro 100 Unit/Ml) 12 unit SUB-Q ACHS [facility] Last Admin: 12/27/21 21:20 Dose: Not Given Latanoprost (Latanoprost 0.005% Ophth Soln 2.5 Ml) 1 drops OU QPM [facility] Last Admin: 12/27/21 18:02 Dose: 1 drops Lisinopril (Lisinopril 40 Mg Tab) 40 mg PO QDAY [facility] Last Admin: 12/27/21 12:50 Dose: Not Given Melatonin (Melatonin 5 Mg Tab) 5 mg PO QHS [facility] Last Admin: 12/27/21 21:03 Dose: 5 mg Metformin HCl (Metformin Xr 500mg Tab) 500 mg PO QDDIAB [facility] Last Admin: 12/27/21 12:47 Dose: 500 mg Miscellaneous Medication (Fluorometholone [Fml S.O.P. 0.25%]) 3.5 gm OP QDAY [facility] Miscellaneous Medication (Methazolamide [Methazolamide]) 50 mg PO BID [facility] Pantoprazole Sodium (Pantoprazole 20 Mg Tab) 20 mg PO QDAY [facility] Last Admin: 12/27/21 12:45 Dose: 20 mg Risperidone (Risperidone 1 Mg Tab) 0.5 mg PO QHS [facility] Last Admin: 12/27/21 21:02 Dose: 0.5 mg Sertraline HCl (Sertraline 50 Mg Tab) 150 mg PO QDAY [facility] Last Admin: 12/27/21 12:45 Dose: 150 mg Results - Results Labs/Vitals: Laboratory Last Values WBC 4.3 K/mm3 (4.5-11.0) L 12/27/21 23:33 RBC 3.33 M/mm3 (3.65-5.03) L 12/27/21 23:33 Hgb 10.1 gm/dl (11.8-15.2) L 12/27/21 23:33 Hct 30.8 % (35.5-45.6) L 12/27/21 23:33 MCV 92 fl (84-94) 12/27/21 23: MCH 30 pg (28-32) 12/27/21 23: MCHC 33 % (32-34) 12/27/21 23:33 RDW 13.2 % (13.2-15.2) 12/27/21 23:33 Plt Count 185 K/mm3 (140-440) 12/27/21 23:33 Lymph % (Auto) 48.0 % (13.4-35.0) H 12/27/21 23:33 [place] % (Auto) 12.7 % (0.0-7.3) H 12/27/21 23:33 Eos % (Auto) 3.0 % (0.0-4.3) 12/27/21 23:33 Baso % (Auto) 0.6 % (0.0-1.8) 12/27/21 23:33 Lymph # (Auto) 2.1 K/mm3 (1.2-5.4) 12/27/21 23:33 [place] # (Auto) 0.5 K/mm3 (0.0-0.8) 12/27/21 23:33 Eos # (Auto) 0.1 K/mm3 (0.0-0.4) 12/27/21 23:33 Baso # (Auto) 0.0 K/mm3 (0.0-0.1) 12/27/21 23:33 Seg Neutrophils % 35.7 % (40.0-70.0) L 12/27/21 23:33 Seg Neutrophils # 1.5 K/mm3 (1.8-7.7) L 12/27/21 23:33 Sodium 136 mmol/L (137-145) L 12/27/21 23:33 Potassium 3.9 mmol/L (3.6-5.0) 12/27/21 23:33 Chloride 101.9 mmol/L (98-107) 12/27/21 23:33 Carbon Dioxide 20 mmol/L (22-30) L 12/27/21 23:33 Anion Gap 18 mmol/L 12/27/21 23:33 BUN 29 mg/dL (9-20) H 12/27/21 23:33 Creatinine 1.8 mg/dL (0.8-1.3) H 12/27/21 23:33 Estimated GFR 44 ml/min 12/27/21 23:33 BUN/Creatinine Ratio 16 % 12/27/21 23:33 Glucose 119 mg/dL (75-100) H 12/27/21 23:33 POC Glucose 142 mg/dL (70-105) H 12/28/21 06:13 Hemoglobin A1c 6.4 % (4-6) H 12/27/21 23:33 Calcium 9.3 mg/dL (8.4-10.2) 12/27/21 23:33 Total Bilirubin 0.60 mg/dL (0.1-1.2) 12/27/21 23:33 AST 32 units/L (5-40) 12/27/21 23:33 ALT 22 units/L (7-56) 12/27/21 23:33 Alkaline Phosphatase 85 units/L (35-129) 12/27/21 23:33 Total Protein 7.0 g/dL (6.3-8.2) 12/27/21 23:33 Albumin 3.9 g/dL (3.9-5) 12/27/21 23:33 Albumin/Globulin Ratio 1.3 % 12/27/21 23:33 Triglycerides 127 mg/dL (2-149) 12/27/21 23:33 Cholesterol 169 mg/dL (50-199) 12/27/21 23:33 LDL Cholesterol Direct 114 mg/dL (50-130) 12/27/21 23:33 HDL Cholesterol 31 mg/dL (40-59) L 12/27/21 23:33 Cholesterol/HDL Ratio 5.45 % 12/27/21 23:33 TSH 1.330 mlU/mL (0.270-4.200) 12/27/21 23:33 Last Vital Signs Temp 98.5 F 12/27/21 22:00 Pulse 83 12/27/21 22:00 Resp 18 12/27/21 22:00 BP 101/66 12/27/21 22:00 Pulse Ox 97 12/27/21 22:00 Physical Examination - Constitutional Vitals: Vital Signs Temp Pulse Resp BP Pulse Ox 98.5 F 83 18 101/66 97 12/27/21 22:00 12/27/21 22:00 12/27/21 22:00 12/27/21 22:00 12/27/21 22:00 Temperature -Last 24 Hours Temperature 98.5 F Temperature 98.5 F Temperature 98.2 F Temperature 97.5 F Mental Status Exam - Vital signs Last Vital Signs Temp 98.5 F 12/27/21 22:00 Pulse 83 12/27/21 22:00 Resp 18 12/27/21 22:00 BP 101/66 12/27/21 22:00 Pulse Ox 97 12/27/21 22:00 Physician Certification - Certification Statement Physician Certification Statement: This is an acknowledgement statement that MARISEL OBRIEN is a 86 year old M who requires inpatient psychiatric admission for treatment which could reasonably be expected to improve the patient's condition for Estimated period of time patient will need to remain in the hospital: [ ] Plan for post-hospital care: [ ]
[2021-12-28] MEDS: ASPIRIN 81 MG TAB CHEW PO SCH ×2 (12:00→12:29)
[2021-12-28] MEDS: buPROPion XL 150 MG TAB PO SCH ×2 (12:00→12:52)
[2021-12-28] MEDS: CYANOCOBALAMIN (VIT B-12) 1000 MCG TAB PO SCH ×2 (12:00→12:51)
[2021-12-28] MEDS: SERTRALINE 50 MG TAB PO SCH (12:00)
[2021-12-28] MEDS: PANTOPRAZOLE 20 MG TAB PO SCH ×2 (12:01→12:51)
[2021-12-28] MEDS: carvediloL 25 MG TAB PO SCH ×2 (12:01→21:58)
[2021-12-28] MEDS: amLODIPine 10 MG TAB PO SCH (12:02)
[2021-12-28] MEDS: metFORMIN XR 500MG TAB PO SCH ×2 (12:03→12:51)
[2021-12-28] MEDS: LISINOPRIL 40 MG TAB PO SCH (12:04)
[2021-12-28] MEDS: LATANOPROST 0.005% OPHTH SOLN 2.5 ML OU SCH (19:26)
[2021-12-28] MEDS: risperiDONE 1 MG TAB PO SCH (21:59)
[2021-12-28] MEDS: MELATONIN 5 MG TAB PO SCH (21:59)
[2021-12-29] MEDS: BRIMONIDINE 0.15% OPHTH SOLN OU SCH ×3 (07:10→21:04)
[2021-12-29] MEDS: INSULIN LISPRO 100 UNIT/ML SUB-Q SCH ×4 (08:00→21:09)
--- NOTE | 2021-12-29 09:33 | Progress Note ---
Subjective Date of service: 12/29/21 Subjective Comment: The patient was seen this morning. He reports doing well. The patient is calm, alert and oriented to self with some confusion. Per nurse, he has been refusing his meds. Some irritability but no aggressive behavior reported. REVIEW OF SYSTEMS Unable to obtain MENTAL STATUS EXAMINATION Unable to obtain Diagnoses: Dementia with Behavioral Disturbance Treatment Plan Patient admitted for inpatient psychiatric evaluation, medication adjustment and close monitoring The patient's behavior, mood, sleep and appetite will be closely monitored. Patient enrolled in individual and group therapeutic sessions and encouraged to attend. Patient provided with a safe and structured environment. Patient's physical health needs will be addressed by the Hospitalist. Hospitalist Consulted Labs including CBC, CMP, Lipid profile and Hemoglobin A1C levels ordered for baseline reference Social Assessment will be completed and the [employer] Supervisor will work with patie nt and family to ensure a suitable and safe disposition Medication adjustment will be made as clinically indicated Continue home meds Usual Wellness Congregation/Preservation: - Start Trazodone 50 mg po QHS & 50 mg po QHS PRN between 10 PM & 2 AM for insomnia - Start Melatonin 5 mg po QHS to promote circadian rhythm The patient agreed on the treatment plan, understood the risk, benefit, alternative treatment, potential consequence of no treatment, and gave informed consent. Estimated days: 7 Post hospital care: primary care provider, psychiatric provider Case staffed with Dr. Arreguin Legal Status: Voluntary Medications and Allergies Allergies Allergy/AdvReac Type Severity Reaction Status Date / Time No Known Allergies Allergy Verified 09/23/21 16:39 Home Medications Medication Instructions Recorded Confirmed Last Taken Type Amlodipine Besylate [Norvasc] 10 mg PO DAILY 09/07/14 12/27/21 09/06/14 History Aspirin [Aspirin BABY CHEW TAB] 81 mg PO DAILY 09/07/14 12/27/21 09/06/14 History 81 mg lisinopriL [Zestril TAB] 40 mg PO QDAY 09/07/14 12/27/21 09/06/14 History AtorvaSTATin [Lipitor] 20 mg PO QHS 09/24/21 12/27/21 Unknown History Brimonidine Tartrate [Brimonidine 1 drop OP Q8HR 09/24/21 12/27/21 Unknown History Tartrate 0.2%] Cyanocobalamin (Vitamin B-12) 500 mg PO QDAY 09/24/21 12/27/21 Unknown History [Vitamin B-12] Fluorometholone [Fml S.o.p] 3.5 gm OP QDAY 09/24/21 12/27/21 Unknown History Insulin Aspart Flexpen 12 units SUB-Q ACHS 09/24/21 12/27/21 Unknown History Omeprazole 20 mg PO QDAY 09/24/21 12/27/21 Unknown History Sertraline [Zoloft] 150 mg PO QDAY 09/24/21 12/27/21 Unknown History Sildenafil Citrate 50 mg PO 1XW PRN MDD 1 TAB 09/24/21 12/27/21 Unknown History buPROPion HCL [Bupropion Xl] 150 mg PO QDAY 09/24/21 12/27/21 Unknown History carvediloL [Coreg] 25 mg PO BID 09/24/21 12/27/21 Unknown History risperiDONE [RisperDAL] 0.5 mg PO QHS 09/24/21 12/27/21 Unknown History Latanoprost 0.005% [Xalatan 0.005%] 1 drop OP QPM 12/27/21 12/27/21 Unknown History Melatonin [Melatonin 3MG TAB] 3 mg PO HS 12/27/21 12/27/21 Unknown History metFORMIN XR [Glucophage XR] 500 mg PO QDAY 12/27/21 12/27/21 Unknown History methazolAMIDE [Methazolamide] 50 mg PO BID 12/27/21 12/27/21 Unknown History Active Meds: Active Medications Amlodipine Besylate (Amlodipine 10 Mg Tab) 10 mg PO DAILY COUNT INCLUDES THE [facility] Last Admin: 12/28/21 12:02 Dose: Not Given Aspirin (Aspirin 81 Mg Tab Chew) 81 mg PO DAILY COUNT INCLUDES THE [facility] Last Admin: 12/28/21 12:29 Dose: Not Given Atorvastatin Calcium (Atorvastatin 20 Mg Tab) 20 mg PO QHS COUNT INCLUDES THE [facility] Last Admin: 12/28/21 21:59 Dose: Not Given Brimonidine Tartrate (Brimonidine 0.15% [facility]) 1 drops OU Q8HR COUNT INCLUDES THE [facility] Last Admin: 12/29/21 07:10 Dose: 1 drops Bupropion HCl (Bupropion Xl 150 Mg Tab) 150 mg PO QDAY COUNT INCLUDES THE [facility] Last Admin: 12/28/21 12:52 Dose: Not Given Carvedilol (Carvedilol 25 Mg Tab) 25 mg PO BID COUNT INCLUDES THE [facility] Last Admin: 12/28/21 21:58 Dose: Not Given Cyanocobalamin (Cyanocobalamin (Vit B-12) 1000 Mcg Tab) 500 mcg PO QDAY COUNT INCLUDES [facility] Last Admin: 12/28/21 12:51 Dose: Not Given Insulin Human Lispro (Insulin Lispro 100 Unit/Ml) 12 unit SUB-Q ACHS COUNT INCLUDES THE [facility] Last Admin: 12/28/21 21:59 Dose: Not Given Latanoprost (Latanoprost 0.005% Ophth Soln 2.5 Ml) 1 drops OU QPM COUNT INCLUDES [facility] Last Admin: 12/28/21 19:26 Dose: 1 drops Lisinopril (Lisinopril 40 Mg Tab) 40 mg PO QDAY COUNT INCLUDES THE [facility] Last Admin: 12/28/21 12:04 Dose: Not Given Melatonin (Melatonin 5 Mg Tab) 5 mg PO QHS COUNT INCLUDES THE [facility] Last Admin: 12/28/21 21:59 Dose: Not Given Metformin HCl (Metformin Xr 500mg Tab) 500 mg PO QDDIAB COUNT INCLUDES THE [facility] Last Admin: 12/28/21 12:51 Dose: Not Given Miscellaneous Medication (Fluorometholone [Fml S.O.P. 0.25%]) 3.5 gm OP QDAY COUNT INCLUDES THE [facility] Miscellaneous Medication (Methazolamide [Methazolamide]) 50 mg PO BID COUNT INCLUDES THE [facility] Pantoprazole Sodium (Pantoprazole 20 Mg Tab) 20 mg PO QDAY COUNT INCLUDES THE [facility] Last Admin: 12/28/21 12:51 Dose: Not Given Risperidone (Risperidone 1 Mg Tab) 0.5 mg PO QHS COUNT INCLUDES THE [facility] Last Admin: 12/28/21 21:59 Dose: Not Given Sertraline HCl (Sertraline 50 Mg Tab) 150 mg PO QDAY COUNT INCLUDES THE [facility] Last Admin: 12/28/21 12:00 Dose: 150 mg Results - Results Labs/Vitals: Laboratory Last Values WBC 4.3 K/mm3 (4.5-11.0) L 12/27/21 23:33 RBC 3.33 M/mm3 (3.65-5.03) L 12/27/21 23:33 Hgb 10.1 gm/dl (11.8-15.2) L 12/27/21 23:33 Hct 30.8 % (35.5-45.6) L 12/27/21 23:33 MCV 92 fl (84-94) 12/27/21 23:33 MCH 30 pg (28-32) 12/27/21 23:33 MCHC 33 % (32-34) 12/27/21 23:33 RDW 13.2 % (13.2-15.2) 12/27/21 23:33 Plt Count 185 K/mm3 (140-440) 12/27/21 23:33 Lymph % (Auto) 48.0 % (13.4-35.0) H 12/27/21 23:33 [place] % (Auto) 12.7 % (0.0-7.3) H 12/27/21 23:33 Eos % (Auto) 3.0 % (0.0-4.3) 12/27/21 23: Baso % (Auto) 0.6 % (0.0-1.8) 12/27/21 23:33 Lymph # (Auto) 2.1 K/mm3 (1.2-5.4) 12/27/21 23: [place] # (Auto) 0.5 K/mm3 (0.0-0.8) 12/27/21 23:33 Eos # (Auto) 0.1 K/mm3 (0.0-0.4) 12/27/21 23:33 Baso # (Auto) 0.0 K/mm3 (0.0-0.1) 12/27/21 23:33 Seg Neutrophils % 35.7 % (40.0-70.0) L 12/27/21 23: Seg Neutrophils # 1.5 K/mm3 (1.8-7.7) L 12/27/21 23:33 Sodium 136 mmol/L (137-145) L 12/27/21 23:33 Potassium 3.9 mmol/L (3.6-5.0) 12/27/21 23:33 Chloride 101.9 mmol/L (98-107) 12/27/21 23:33 Carbon Dioxide 20 mmol/L (22-30) L 12/27/21 23:33 Anion Gap 18 mmol/L 12/27/21 23:33 BUN 29 mg/dL (9-20) H 12/27/21 23:33 Creatinine 1.8 mg/dL (0.8-1.3) H 12/27/21 23:33 Estimated GFR 44 ml/min 12/27/21 23:33 BUN/Creatinine Ratio 16 % 12/27/21 23:33 Glucose 119 mg/dL (75-100) H 12/27/21 23:33 POC Glucose 119 mg/dL (70-105) H 12/29/21 08:05 Hemoglobin A1c 6.4 % (4-6) H 12/27/21 23:33 Calcium 9.3 mg/dL (8.4-10.2) 12/27/21 23:33 Total Bilirubin 0.60 mg/dL (0.1-1.2) 12/27/21 23:33 AST 32 units/L (5-40) 12/27/21 23:33 ALT 22 units/L (7-56) 12/27/21 23:33 Alkaline Phosphatase 85 units/L (35-129) 12/27/21 23:33 Total Protein 7.0 g/dL (6.3-8.2) 12/27/21 23:33 Albumin 3.9 g/dL (3.9-5) 12/27/21 23:33 Albumin/Globulin Ratio 1.3 % 12/27/21 23:33 Triglycerides 127 mg/dL (2-149) 12/27/21 23:33 Cholesterol 169 mg/dL (50-199) 12/27/21 23:33 LDL Cholesterol Direct 114 mg/dL (50-130) 12/27/21 23:33 HDL Cholesterol 31 mg/dL (40-59) L 12/27/21 23:33 Cholesterol/HDL Ratio 5.45 % 12/27/21 23:33 TSH 1.330 mlU/mL (0.270-4.200) 12/27/21 23:33 Last Vital Signs Temp 97.6 F 12/28/21 21:00 Pulse 73 12/28/21 21:00 Resp 17 12/28/21 21:00 BP 161/62 12/28/21 21:00 Pulse Ox 98 12/28/21 21:00
[2021-12-29] MEDS: LISINOPRIL 40 MG TAB PO SCH (13:03)
[2021-12-29] MEDS: SERTRALINE 50 MG TAB PO SCH (13:03)
[2021-12-29] MEDS: PANTOPRAZOLE 20 MG TAB PO SCH (13:04)
[2021-12-29] MEDS: carvediloL 25 MG TAB PO SCH ×2 (13:04→21:04)
[2021-12-29] MEDS: CYANOCOBALAMIN (VIT B-12) 1000 MCG TAB PO SCH (13:04)
[2021-12-29] MEDS: amLODIPine 10 MG TAB PO SCH (13:05)
[2021-12-29] MEDS: metFORMIN XR 500MG TAB PO SCH (13:05)
[2021-12-29] MEDS: buPROPion XL 150 MG TAB PO SCH (13:05)
[2021-12-29] MEDS: ASPIRIN 81 MG TAB CHEW PO SCH (13:06)
--- NOTE | 2021-12-29 15:16 | Progress Note ---
Assessment and Plan - Patient Problems (1) Vascular dementia with behavioral disturbance Current Visit: Yes Status: Acute Plan to address problem: Verbal prompting, verbal redirection, benzodiazepine therapy as clinically indicated. (2) Cerebral atherosclerosis Current Visit: Yes Status: Acute Plan to address problem: Antiplatelet therapy as clinically indicated, risk factor reduction. (3) Hypertension Current Visit: Yes Status: Acute Qualifiers: Hypertension type: primary hypertension Qualified Code(s): I10 - Essential (primary) hypertension Plan to address problem: Monitor blood pressure every shift, continue medical management. (4) Hyperlipidemia Current Visit: Yes Status: Acute Qualifiers: Hyperlipidemia type: mixed hyperlipidemia Qualified Code(s): E78.2 - Mixed hyperlipidemia Plan to address problem: Statin therapy, low-cholesterol diet (5) Diabetes Current Visit: Yes Status: Acute Plan to address problem: Consistent carbohydrate diet, Accu-Chek, continue oral antihyperglycemic therapy, hypoglycemia protocol. (6) Advance care planning Current Visit: Yes Status: Acute Plan to address problem: Disease education done, care plan discussed, diagnoses discussed, prognosis discussed, patient is full code. Patient acknowledges understanding and agreement with care plan, +30 minutes. (7) Preventative health care Current Visit: Yes Status: Acute Plan to address problem: Patient counseled regarding risk factor reduction, home safety measures, outpatient follow-up with primary care physician for all age and risk factor appropriate screening test, +30 minutes. History Interval history: 86 YO Male with Vascular Dementia with Behavioral Disturbance, Cerebral Atherosclerosis, HTN, HLD, DM, GERD, CKD, MARGARETH admitted to [facility] unit for psychiatric stabilization. Consult placed by Dr. Thompson for medical management. Patient seen and evaluated in the recreation room. Patient resting. Patient has diminished cognition but appears to be at baseline level of cognition and function. Hospitalist Physical - Constitutional Vitals: Temp Pulse Resp BP Pulse Ox 97.6 F 73 17 161/62 98 12/28/21 21:00 12/28/21 21:00 12/28/21 21:00 12/28/21 21:00 12/28/21 21:00 General appearance: Present: no acute distress - EENT Eyes: Present: PERRL ENT: hearing decreased - Neck Neck: Present: supple - Respiratory Respiratory effort: normal Respiratory: bilateral: diminished - Cardiovascular Rhythm: regular Heart Sounds: Present: S1 & S2 - Extremities Extremities: no ischemia Peripheral Pulses: within normal limits - Abdominal General gastrointestinal: soft, non-tender, non-distended - Integumentary Integumentary: Present: clear, dry - Psychiatric Psychiatric: cooperative - Neurologic Neurologic: CNII-XII intact Results - Labs CBC & Chem 7: 12/27/21 23:33 12/27/21 23:33 Labs: Laboratory Last Values WBC 4.3 K/mm3 (4.5-11.0) L 12/27/21 23: RBC 3.33 M/mm3 (3.65-5.03) L 12/27/21 23:33 Hgb 10.1 gm/dl (11.8-15.2) L 12/27/21 23: Hct 30.8 % (35.5-45.6) L 12/27/21 23: MCV 92 fl (84-94) 12/27/21 23: MCH 30 pg (28-32) 12/27/21 23: MCHC 33 % (32-34) 12/27/21 23: RDW 13.2 % (13.2-15.2) 12/27/21 23: Plt Count 185 K/mm3 (140-440) 12/27/21 23:33 Lymph % (Auto) 48.0 % (13.4-35.0) H 12/27/21 23: [place] % (Auto) 12.7 % (0.0-7.3) H 12/27/21 23:33 Eos % (Auto) 3.0 % (0.0-4.3) 12/27/21 23: Baso % (Auto) 0.6 % (0.0-1.8) 12/27/21 23: Lymph # (Auto) 2.1 K/mm3 (1.2-5.4) 12/27/21 23: [place] # (Auto) 0.5 K/mm3 (0.0-0.8) 12/27/21 23: Eos # (Auto) 0.1 K/mm3 (0.0-0.4) 12/27/21 23: Baso # (Auto) 0.0 K/mm3 (0.0-0.1) 12/27/21 23: Seg Neutrophils % 35.7 % (40.0-70.0) L 12/27/21 23:33 Seg Neutrophils # 1.5 K/mm3 (1.8-7.7) L 12/27/21 23:33 Sodium 136 mmol/L (137-145) L 12/27/21 23:33 Potassium 3.9 mmol/L (3.6-5.0) 12/27/21 23:33 Chloride 101.9 mmol/L (98-107) 12/27/21 23:33 Carbon Dioxide 20 mmol/L (22-30) L 12/27/21 23:33 Anion Gap 18 mmol/L 12/27/21 23:33 BUN 29 mg/dL (9-20) H 12/27/21 23:33 Creatinine 1.8 mg/dL (0.8-1.3) H 12/27/21 23:33 Estimated GFR 44 ml/min 12/27/21 23:33 BUN/Creatinine Ratio 16 % 12/27/21 23:33 Glucose 119 mg/dL (75-100) H 12/27/21 23:33 POC Glucose 168 mg/dL (70-105) H 12/29/21 11:15 Hemoglobin A1c 6.4 % (4-6) H 12/27/21 23:33 Calcium 9.3 mg/dL (8.4-10.2) 12/27/21 23:33 Total Bilirubin 0.60 mg/dL (0.1-1.2) 12/27/21 23:33 AST 32 units/L (5-40) 12/27/21 23:33 ALT 22 units/L (7-56) 12/27/21 23:33 Alkaline Phosphatase 85 units/L (35-129) 12/27/21 23:33 Total Protein 7.0 g/dL (6.3-8.2) 12/27/21 23:33 Albumin 3.9 g/dL (3.9-5) 12/27/21 23:33 Albumin/Globulin Ratio 1.3 % 12/27/21 23:33 Triglycerides 127 mg/dL (2-149) 12/27/21 23:33 Cholesterol 169 mg/dL (50-199) 12/27/21 23:33 LDL Cholesterol Direct 114 mg/dL (50-130) 12/27/21 23:33 HDL Cholesterol 31 mg/dL (40-59) L 12/27/21 23:33 Cholesterol/HDL Ratio 5.45 % 12/27/21 23:33 TSH 1.330 mlU/mL (0.270-4.200) 12/27/21 23:33 [place]/IV: Voiding Method Toilet Active Medications - Current Medications Current Medications: Generic Name Dose Route Start Last Admin Trade Name Freq PRN Reason Stop Dose Admin Amlodipine Besylate 10 mg 12/27/21 14:00 12/29/21 13:05 Amlodipine 10 Mg Tab PO Not Given DAILY [facility] Aspirin 81 mg 12/27/21 12:00 12/29/21 13:06 Aspirin 81 Mg Tab Chew PO Not Given DAILY [facility] Atorvastatin Calcium 20 mg 12/27/21 22:00 12/28/21 21:59 Atorvastatin 20 Mg Tab PO Not Given QHS [facility] Brimonidine Tartrate 1 drops 12/27/21 14:00 12/29/21 13:59 Brimonidine 0.15% Ophth Soln OU 1 drops Q8HR [facility] Administration Bupropion HCl 150 mg 12/27/21 12:00 12/29/21 13:05 Bupropion Xl 150 Mg Tab PO Not Given QDAY [facility] Carvedilol 25 mg 12/27/21 12:00 12/29/21 13:04 Carvedilol 25 Mg Tab PO Not Given BID [facility] Cyanocobalamin 500 mcg 12/28/21 10:00 12/29/21 13:04 Cyanocobalamin (Vit B-12) 1000 Mcg Tab PO Not Given QDAY [facility] Insulin Human Lispro 12 unit 12/27/21 12:00 12/29/21 13:01 Insulin Lispro 100 Unit/Ml SUB-Q Not Given ACHS [facility] Latanoprost 1 drops 12/27/21 18:00 12/28/21 19:26 Latanoprost 0.005% Ophth Soln 2.5 Ml OU 1 drops QPM [facility] Administration Lisinopril 40 mg 12/27/21 12:00 12/29/21 13:03 Lisinopril 40 Mg Tab PO Not Given QDAY [facility] Melatonin 5 mg 12/27/21 22:00 12/28/21 21:59 Melatonin 5 Mg Tab PO Not Given QHS [facility] Metformin HCl 500 mg 12/27/21 12:00 12/29/21 13:05 Metformin Xr 500mg Tab PO Not Given QDDIAB [facility] Miscellaneous Medication 3.5 gm 12/27/21 10:45 Fluorometholone [Fml S.O.P. 0.25%] OP QDAY [facility] Miscellaneous Medication 50 mg 12/27/21 10:45 Methazolamide [Methazolamide] PO BID [facility] Pantoprazole Sodium 20 mg 12/27/21 12:00 12/29/21 13:04 Pantoprazole 20 Mg Tab PO Not Given QDAY [facility] Risperidone 0.5 mg 12/27/21 22:00 12/28/21 21:59 Risperidone 1 Mg Tab PO Not Given QHS [facility] Sertraline HCl 150 mg 12/27/21 12:00 12/29/21 13:03 Sertraline 50 Mg Tab PO Not Given QDAY [facility]
--- NOTE | 2021-12-29 15:17 | Progress Note ---
Assessment and Plan - Patient Problems (1) Vascular dementia with behavioral disturbance Current Visit: Yes Status: Acute Plan to address problem: Verbal prompting, verbal redirection, benzodiazepine therapy as clinically indicated. (2) Cerebral atherosclerosis Current Visit: Yes Status: Acute Plan to address problem: Antiplatelet therapy as clinically indicated, risk factor reduction. (3) Hypertension Current Visit: Yes Status: Acute Qualifiers: Hypertension type: primary hypertension Qualified Code(s): I10 - Essential (primary) hypertension Plan to address problem: Monitor blood pressure every shift, continue medical management. (4) Hyperlipidemia Current Visit: Yes Status: Acute Qualifiers: Hyperlipidemia type: mixed hyperlipidemia Qualified Code(s): E78.2 - Mixed hyperlipidemia Plan to address problem: Statin therapy, low-cholesterol diet (5) Diabetes Current Visit: Yes Status: Acute Plan to address problem: Consistent carbohydrate diet, Accu-Chek, continue oral antihyperglycemic therapy, hypoglycemia protocol. (6) Advance care planning Current Visit: Yes Status: Acute Plan to address problem: Disease education done, care plan discussed, diagnoses discussed, prognosis discussed, patient is full code. Patient acknowledges understanding and agreement with care plan, +30 minutes. (7) Preventative health care Current Visit: Yes Status: Acute Plan to address problem: Patient counseled regarding risk factor reduction, home safety measures, outpatient follow-up with primary care physician for all age and risk factor appropriate screening test, +30 minutes. History Interval history: 86 YO Male with Vascular Dementia with Behavioral Disturbance, Cerebral Atherosclerosis, HTN, HLD, DM, GERD, CKD, MARGARETH admitted to [facility] unit for psychiatric stabilization. Consult placed by Dr. Thompson for medical management. Patient seen and evaluated in the recreation room. Patient resting. Patient has diminished cognition but appears to be at baseline level of cognition and function. Hospitalist Physical - Constitutional Vitals: Temp Pulse Resp BP Pulse Ox 97.6 F 73 17 161/62 98 12/28/21 21:00 12/28/21 21:00 12/28/21 21:00 12/28/21 21:00 12/28/21 21:00 General appearance: Present: no acute distress - EENT Eyes: Present: PERRL ENT: hearing decreased - Neck Neck: Present: supple - Respiratory Respiratory effort: normal Respiratory: bilateral: diminished - Cardiovascular Rhythm: regular Heart Sounds: Present: S1 & S2 - Extremities Extremities: no ischemia Peripheral Pulses: within normal limits - Abdominal General gastrointestinal: soft, non-tender, non-distended - Integumentary Integumentary: Present: clear, dry - Psychiatric Psychiatric: cooperative - Neurologic Neurologic: CNII-XII intact Results - Labs CBC & Chem 7: 12/27/21 23:33 12/27/21 23:33 Labs: Laboratory Last Values WBC 4.3 K/mm3 (4.5-11.0) L 12/27/21 23: RBC 3.33 M/mm3 (3.65-5.03) L 12/27/21 23:33 Hgb 10.1 gm/dl (11.8-15.2) L 12/27/21 23: Hct 30.8 % (35.5-45.6) L 12/27/21 23: MCV 92 fl (84-94) 12/27/21 23: MCH 30 pg (28-32) 12/27/21 23: MCHC 33 % (32-34) 12/27/21 23: RDW 13.2 % (13.2-15.2) 12/27/21 23: Plt Count 185 K/mm3 (140-440) 12/27/21 23:33 Lymph % (Auto) 48.0 % (13.4-35.0) H 12/27/21 23: [place] % (Auto) 12.7 % (0.0-7.3) H 12/27/21 23:33 Eos % (Auto) 3.0 % (0.0-4.3) 12/27/21 23: Baso % (Auto) 0.6 % (0.0-1.8) 12/27/21 23: Lymph # (Auto) 2.1 K/mm3 (1.2-5.4) 12/27/21 23: [place] # (Auto) 0.5 K/mm3 (0.0-0.8) 12/27/21 23: Eos # (Auto) 0.1 K/mm3 (0.0-0.4) 12/27/21 23: Baso # (Auto) 0.0 K/mm3 (0.0-0.1) 12/27/21 23: Seg Neutrophils % 35.7 % (40.0-70.0) L 12/27/21 23:33 Seg Neutrophils # 1.5 K/mm3 (1.8-7.7) L 12/27/21 23:33 Sodium 136 mmol/L (137-145) L 12/27/21 23:33 Potassium 3.9 mmol/L (3.6-5.0) 12/27/21 23:33 Chloride 101.9 mmol/L (98-107) 12/27/21 23:33 Carbon Dioxide 20 mmol/L (22-30) L 12/27/21 23:33 Anion Gap 18 mmol/L 12/27/21 23:33 BUN 29 mg/dL (9-20) H 12/27/21 23:33 Creatinine 1.8 mg/dL (0.8-1.3) H 12/27/21 23:33 Estimated GFR 44 ml/min 12/27/21 23:33 BUN/Creatinine Ratio 16 % 12/27/21 23:33 Glucose 119 mg/dL (75-100) H 12/27/21 23:33 POC Glucose 168 mg/dL (70-105) H 12/29/21 11:15 Hemoglobin A1c 6.4 % (4-6) H 12/27/21 23:33 Calcium 9.3 mg/dL (8.4-10.2) 12/27/21 23:33 Total Bilirubin 0.60 mg/dL (0.1-1.2) 12/27/21 23:33 AST 32 units/L (5-40) 12/27/21 23:33 ALT 22 units/L (7-56) 12/27/21 23:33 Alkaline Phosphatase 85 units/L (35-129) 12/27/21 23:33 Total Protein 7.0 g/dL (6.3-8.2) 12/27/21 23:33 Albumin 3.9 g/dL (3.9-5) 12/27/21 23:33 Albumin/Globulin Ratio 1.3 % 12/27/21 23:33 Triglycerides 127 mg/dL (2-149) 12/27/21 23:33 Cholesterol 169 mg/dL (50-199) 12/27/21 23:33 LDL Cholesterol Direct 114 mg/dL (50-130) 12/27/21 23:33 HDL Cholesterol 31 mg/dL (40-59) L 12/27/21 23:33 Cholesterol/HDL Ratio 5.45 % 12/27/21 23:33 TSH 1.330 mlU/mL (0.270-4.200) 12/27/21 23:33 Dela Cruz/IV: Voiding Method Toilet Active Medications - Current Medications Current Medications: Generic Name Dose Route Start Last Admin Trade Name Freq PRN Reason Stop Dose Admin Amlodipine Besylate 10 mg 12/27/21 14:00 12/29/21 13:05 Amlodipine 10 Mg Tab PO Not Given DAILY [facility] Aspirin 81 mg 12/27/21 12:00 12/29/21 13:06 Aspirin 81 Mg Tab Chew PO Not Given DAILY [facility] Atorvastatin Calcium 20 mg 12/27/21 22:00 12/28/21 21:59 Atorvastatin 20 Mg Tab PO Not Given QHS [facility] Brimonidine Tartrate 1 drops 12/27/21 14:00 12/29/21 13:59 Brimonidine 0.15% Ophth Soln OU 1 drops Q8HR [facility] Administration Bupropion HCl 150 mg 12/27/21 12:00 12/29/21 13:05 Bupropion Xl 150 Mg Tab PO Not Given QDAY [facility] Carvedilol 25 mg 12/27/21 12:00 12/29/21 13:04 Carvedilol 25 Mg Tab PO Not Given BID [facility] Cyanocobalamin 500 mcg 12/28/21 10:00 12/29/21 13:04 Cyanocobalamin (Vit B-12) 1000 Mcg Tab PO Not Given QDAY [facility] Insulin Human Lispro 12 unit 12/27/21 12:00 12/29/21 13:01 Insulin Lispro 100 Unit/Ml SUB-Q Not Given ACHS [facility] Latanoprost 1 drops 12/27/21 18:00 12/28/21 19:26 Latanoprost 0.005% Ophth Soln 2.5 Ml OU 1 drops QPM [facility] Administration Lisinopril 40 mg 12/27/21 12:00 12/29/21 13:03 Lisinopril 40 Mg Tab PO Not Given QDAY [facility] Melatonin 5 mg 12/27/21 22:00 12/28/21 21:59 Melatonin 5 Mg Tab PO Not Given QHS [facility] Metformin HCl 500 mg 12/27/21 12:00 12/29/21 13:05 Metformin Xr 500mg Tab PO Not Given QDDIAB [facility] Miscellaneous Medication 3.5 gm 12/27/21 10:45 Fluorometholone [Fml S.O.P. 0.25%] OP QDAY [facility] Miscellaneous Medication 50 mg 12/27/21 10:45 Methazolamide [Methazolamide] PO BID [facility] Pantoprazole Sodium 20 mg 12/27/21 12:00 12/29/21 13:04 Pantoprazole 20 Mg Tab PO Not Given QDAY [facility] Risperidone 0.5 mg 12/27/21 22:00 12/28/21 21:59 Risperidone 1 Mg Tab PO Not Given QHS [facility] Sertraline HCl 150 mg 12/27/21 12:00 12/29/21 13:03 Sertraline 50 Mg Tab PO Not Given QDAY [facility]
[2021-12-29] MEDS: LATANOPROST 0.005% OPHTH SOLN 2.5 ML OU SCH (17:37)
[2021-12-29] MEDS: MELATONIN 5 MG TAB PO SCH (21:03)
[2021-12-29] MEDS: risperiDONE 1 MG TAB PO SCH (21:03)
[2021-12-30] MEDS: BRIMONIDINE 0.15% OPHTH SOLN OU SCH ×3 (06:00→21:07)
[2021-12-30] MEDS: INSULIN LISPRO 100 UNIT/ML SUB-Q SCH ×4 (09:01→21:35)
[2021-12-30] MEDS: metFORMIN XR 500MG TAB PO SCH ×2 (09:43→10:00)
[2021-12-30] MEDS: LISINOPRIL 40 MG TAB PO SCH (09:43)
[2021-12-30] MEDS: carvediloL 25 MG TAB PO SCH ×3 (09:44→21:07)
[2021-12-30] MEDS: ASPIRIN 81 MG TAB CHEW PO SCH ×2 (09:49→10:01)
[2021-12-30] MEDS: CYANOCOBALAMIN (VIT B-12) 1000 MCG TAB PO SCH ×2 (09:49→10:02)
[2021-12-30] MEDS: PANTOPRAZOLE 20 MG TAB PO SCH ×2 (09:49→10:01)
[2021-12-30] MEDS: SERTRALINE 50 MG TAB PO SCH (09:49)
[2021-12-30] MEDS: amLODIPine 10 MG TAB PO SCH ×2 (09:49→10:01)
[2021-12-30] MEDS: buPROPion XL 150 MG TAB PO SCH ×2 (09:49→10:02)
--- NOTE | 2021-12-30 09:54 | Progress Note ---
Subjective Date of service: 12/30/21 Subjective Comment: 12/30: The patient was seen resting in bed. He states he is fine. He is pleasantly confused. No aggressive behavior reported. 12/29:The patient was seen this morning. He reports doing well. The patient is calm, alert and oriented to self with some confusion. Per nurse, he has been refusing his meds. Some irritability but no aggressive behavior reported. REVIEW OF SYSTEMS Unable to obtain MENTAL STATUS EXAMINATION Unable to obtain Diagnoses: Dementia with Behavioral Disturbance Treatment Plan Patient admitted for inpatient psychiatric evaluation, medication adjustment and close monitoring The patient's behavior, mood, sleep and appetite will be closely monitored. Patient enrolled in individual and group therapeutic sessions and encouraged to attend. Patient provided with a safe and structured environment. Patient's physical health needs will be addressed by the Hospitalist. Hospitalist Consulted Labs including CBC, CMP, Lipid profile and Hemoglobin A1C levels ordered for baseline reference Social Assessment will be completed and the Neurosurgical Nurse will work with patient and family to ensure a suitable and safe disposition Medication adjustment will be made as clinically indicated Continue home meds Usual Wellness Latter Day/Preservation: - Start Trazodone 50 mg po QHS & 50 mg po QHS PRN between 10 PM & 2 AM for insomnia - Start Melatonin 5 mg po QHS to promote circadian rhythm The patient agreed on the treatment plan, understood the risk, benefit, alternative treatment, potential consequence of no treatment, and gave informed consent. Estimated days: 7 Post hospital care: primary care provider, psychiatric provider Case staffed with Dr. Arreguin Legal Status: Voluntary Medications and Allergies Allergies Medications and Allergies Allergies Allergy/AdvReac Type Severity Reaction Status Date / Time No Known Allergies Allergy Verified 09/23/21 16:39 Home Medications Medication Instructions Recorded Confirmed Last Taken Type Amlodipine Besylate [Norvasc] 10 mg PO DAILY 09/07/14 12/27/21 09/06/14 History Aspirin [Aspirin BABY CHEW TAB] 81 mg PO DAILY 09/07/14 12/27/21 09/06/14 History 81 mg lisinopriL [Zestril TAB] 40 mg PO QDAY 09/07/14 12/27/21 09/06/14 History AtorvaSTATin [Lipitor] 20 mg PO QHS 09/24/21 12/27/21 Unknown History Brimonidine Tartrate [Brimonidine 1 drop OP Q8HR 09/24/21 12/27/21 Unknown History Tartrate 0.2%] Cyanocobalamin (Vitamin B-12) 500 mg PO QDAY 09/24/21 12/27/21 Unknown History [Vitamin B-12] Fluorometholone [Fml S.o.p] 3.5 gm OP QDAY 09/24/21 12/27/21 Unknown History Insulin Aspart Flexpen 12 units SUB-Q ACHS 09/24/21 12/27/21 Unknown History Omeprazole 20 mg PO QDAY 09/24/21 12/27/21 Unknown History Sertraline [Zoloft] 150 mg PO QDAY 09/24/21 12/27/21 Unknown History Sildenafil Citrate 50 mg PO 1XW PRN MDD 1 TAB 09/24/21 12/27/21 Unknown History buPROPion HCL [Bupropion Xl] 150 mg PO QDAY 09/24/21 12/27/21 Unknown History carvediloL [Coreg] 25 mg PO BID 09/24/21 12/27/21 Unknown History risperiDONE [RisperDAL] 0.5 mg PO QHS 09/24/21 12/27/21 Unknown History Latanoprost 0.005% [Xalatan 0.005%] 1 drop OP QPM 12/27/21 12/27/21 Unknown History Melatonin [Melatonin 3MG TAB] 3 mg PO HS 12/27/21 12/27/21 Unknown History metFORMIN XR [Glucophage XR] 500 mg PO QDAY 12/27/21 12/27/21 Unknown History methazolAMIDE [Methazolamide] 50 mg PO BID 12/27/21 12/27/21 Unknown History Active Meds: Active Medications Amlodipine Besylate (Amlodipine 10 Mg Tab) 10 mg PO DAILY [facility] Last Admin: 12/30/21 09:49 Dose: 10 mg Aspirin (Aspirin 81 Mg Tab Chew) 81 mg PO DAILY [facility] Last Admin: 12/30/21 09:49 Dose: 81 mg Atorvastatin Calcium (Atorvastatin 20 Mg Tab) 20 mg PO QHS [facility] Last Admin: 12/29/21 21:04 Dose: 20 mg Brimonidine Tartrate (Brimonidine 0.15% Ophth Soln) 1 drops OU Q8HR [facility] Last Admin: 12/30/21 06:00 Dose: 1 drops Bupropion HCl (Bupropion Xl 150 Mg Tab) 150 mg PO QDAY [facility] Last Admin: 12/30/21 09:49 Dose: 150 mg Carvedilol (Carvedilol 25 Mg Tab) 25 mg PO BID [facility] Last Admin: 12/30/21 09:44 Dose: 25 mg Cyanocobalamin (Cyanocobalamin (Vit B-12) 1000 Mcg Tab) 500 mcg PO QDAY [facility] Last Admin: 12/30/21 09:49 Dose: 500 mcg Insulin Human Lispro (Insulin Lispro 100 Unit/Ml) 12 unit SUB-Q ACHS [facility] Last Admin: 12/30/21 09:01 Dose: Not Given Latanoprost (Latanoprost 0.005% Ophth Soln 2.5 Ml) 1 drops OU QPM [facility] Last Admin: 12/29/21 17:37 Dose: 1 drops Lisinopril (Lisinopril 40 Mg Tab) 40 mg PO QDAY [facility] Last Admin: 12/30/21 09:43 Dose: 40 mg Melatonin (Melatonin 5 Mg Tab) 5 mg PO QHS [facility] Last Admin: 12/29/21 21:03 Dose: 5 mg Metformin HCl (Metformin Xr 500mg Tab) 500 mg PO QDDIAB [facility] Last Admin: 12/30/21 09:43 Dose: 500 mg Miscellaneous Medication (Fluorometholone [Fml S.O.P. 0.25%]) 3.5 gm OP QDAY [facility] Miscellaneous Medication (Methazolamide [Methazolamide]) 50 mg PO BID [facility] Pantoprazole Sodium (Pantoprazole 20 Mg Tab) 20 mg PO QDAY [facility] Last Admin: 12/30/21 09:49 Dose: 20 mg Risperidone (Risperidone 1 Mg Tab) 0.5 mg PO QHS [facility] Last Admin: 12/29/21 21:03 Dose: 0.5 mg Sertraline HCl (Sertraline 50 Mg Tab) 150 mg PO QDAY [facility] Last Admin: 12/30/21 09:49 Dose: 150 mg Results - Results Labs/Vitals: Laboratory Last Values WBC 4.3 K/mm3 (4.5-11.0) L 12/27/21 23:33 RBC 3.33 M/mm3 (3.65-5.03) L 12/27/21 23:33 Hgb 10.1 gm/dl (11.8-15.2) L 12/27/21 23:33 Hct 30.8 % (35.5-45.6) L 12/27/21 23:33 MCV 92 fl (84-94) 12/27/21 23: MCH 30 pg (28-32) 12/27/21 23: MCHC 33 % (32-34) 12/27/21 23: RDW 13.2 % (13.2-15.2) 12/27/21 23:33 Plt Count 185 K/mm3 (140-440) 12/27/21 23:33 Lymph % (Auto) 48.0 % (13.4-35.0) H 12/27/21 23:33 [place] % (Auto) 12.7 % (0.0-7.3) H 12/27/21 23: Eos % (Auto) 3.0 % (0.0-4.3) 12/27/21 23: Baso % (Auto) 0.6 % (0.0-1.8) 12/27/21 23: Lymph # (Auto) 2.1 K/mm3 (1.2-5.4) 12/27/21 23:33 [place] # (Auto) 0.5 K/mm3 (0.0-0.8) 12/27/21 23: Eos # (Auto) 0.1 K/mm3 (0.0-0.4) 12/27/21 23: Baso # (Auto) 0.0 K/mm3 (0.0-0.1) 12/27/21 23:33 Seg Neutrophils % 35.7 % (40.0-70.0) L 12/27/21 23: Seg Neutrophils # 1.5 K/mm3 (1.8-7.7) L 12/27/21 23:33 Sodium 136 mmol/L (137-145) L 12/27/21 23:33 Potassium 3.9 mmol/L (3.6-5.0) 12/27/21 23: Chloride 101.9 mmol/L (98-107) 12/27/21 23:33 Carbon Dioxide 20 mmol/L (22-30) L 12/27/21 23:33 Anion Gap 18 mmol/L 12/27/21 23:33 BUN 29 mg/dL (9-20) H 12/27/21 23:33 Creatinine 1.8 mg/dL (0.8-1.3) H 12/27/21 23:33 Estimated GFR 44 ml/min 12/27/21 23:33 BUN/Creatinine Ratio 16 % 12/27/21 23:33 Glucose 119 mg/dL (75-100) H 12/27/21 23:33 POC Glucose 118 mg/dL (70-105) H 12/30/21 06:12 Hemoglobin A1c 6.4 % (4-6) H 12/27/21 23:33 Calcium 9.3 mg/dL (8.4-10.2) 12/27/21 23:33 Total Bilirubin 0.60 mg/dL (0.1-1.2) 12/27/21 23:33 AST 32 units/L (5-40) 12/27/21 23:33 ALT 22 units/L (7-56) 12/27/21 23:33 Alkaline Phosphatase 85 units/L (35-129) 12/27/21 23:33 Total Protein 7.0 g/dL (6.3-8.2) 12/27/21 23:33 Albumin 3.9 g/dL (3.9-5) 12/27/21 23:33 Albumin/Globulin Ratio 1.3 % 12/27/21 23:33 Triglycerides 127 mg/dL (2-149) 12/27/21 23:33 Cholesterol 169 mg/dL (50-199) 12/27/21 23:33 LDL Cholesterol Direct 114 mg/dL (50-130) 12/27/21 23:33 HDL Cholesterol 31 mg/dL (40-59) L 12/27/21 23:33 Cholesterol/HDL Ratio 5.45 % 12/27/21 23:33 TSH 1.330 mlU/mL (0.270-4.200) 12/27/21 23:33 Last Vital Signs Temp 98.6 F 12/29/21 22:00 Pulse 73 12/29/21 22:00 Resp 18 12/29/21 22:00 BP 142/65 12/29/21 22:00 Pulse Ox 100 12/29/21 22:00
[2021-12-30] MEDS: LATANOPROST 0.005% OPHTH SOLN 2.5 ML OU SCH (17:38)
[2021-12-30] MEDS: MELATONIN 5 MG TAB PO SCH (21:08)
[2021-12-30] MEDS: risperiDONE 1 MG TAB PO SCH (21:09)
[2021-12-31] MEDS: BRIMONIDINE 0.15% OPHTH SOLN OU SCH ×3 (06:34→21:50)
[2021-12-31] MEDS: INSULIN LISPRO 100 UNIT/ML SUB-Q SCH ×4 (07:05→21:51)
--- NOTE | 2021-12-31 09:17 | Progress Note ---
Subjective - Reason for Consult Consult date: 12/31/21 Reason for consult: Agitation - Chief Complaint Chief complaint: 12/31:The patient was seen resting in bed. No event reported from last night. 12/30: The patient was seen resting in bed. He states he is fine. He is pleasantly confused. No aggressive behavior reported. 12/29:The patient was seen this morning. He reports doing well. The patient is calm, alert and oriented to self with some confusion. Per nurse, he has been refusing his meds. Some irritability but no aggressive behavior reported. REVIEW OF SYSTEMS Unable to obtain MENTAL STATUS EXAMINATION Unable to obtain Diagnoses: Dementia with Behavioral Disturbance Treatment Plan Patient admitted for inpatient psychiatric evaluation, medication adjustment and close monitoring The patient's behavior, mood, sleep and appetite will be closely monitored. Patient enrolled in individual and group therapeutic sessions and encouraged to attend. Patient provided with a safe and structured environment. Patient's physical health needs will be addressed by the Hospitalist. Hospit alist Consulted Labs including CBC, CMP, Lipid profile and Hemoglobin A1C levels ordered for baseline reference Social Assessment will be completed and the Podiatric Surgeon will work with patient and family to ensure a suitable and safe disposition Medication adjustment will be made as clinically indicated Continue home meds Usual Wellness Taoist/Preservation: - Start Trazodone 50 mg po QHS & 50 mg po QHS PRN between 10 PM & 2 AM for insomnia - Start Melatonin 5 mg po QHS to promote circadian rhythm The patient agreed on the treatment plan, understood the risk, benefit, alternative treatment, potential consequence of no treatment, and gave informed consent. Estimated days: 7 Post hospital care: primary care provider, psychiatric provider Case staffed with Dr. Arreguin Legal Status: Voluntary Medications and Allergies Allergies Mental Status Exam - Vital signs Last Vital Signs Temp 97.8 F 12/30/21 19:33 Pulse 70 12/30/21 21:07 Resp 18 12/30/21 19:33 BP 145/66 12/30/21 21:07 Pulse Ox 99 12/30/21 19:33
[2021-12-31] MEDS: amLODIPine 10 MG TAB PO SCH ×2 (09:18→10:01)
[2021-12-31] MEDS: PANTOPRAZOLE 20 MG TAB PO SCH ×2 (09:18→10:00)
[2021-12-31] MEDS: SERTRALINE 50 MG TAB PO SCH ×3 (09:19→17:22)
[2021-12-31] MEDS: carvediloL 25 MG TAB PO SCH ×3 (09:19→21:50)
[2021-12-31] MEDS: LISINOPRIL 40 MG TAB PO SCH ×3 (09:19→17:22)
[2021-12-31] MEDS: CYANOCOBALAMIN (VIT B-12) 1000 MCG TAB PO SCH ×2 (09:20→10:00)
[2021-12-31] MEDS: ASPIRIN 81 MG TAB CHEW PO SCH ×2 (09:20→10:01)
[2021-12-31] MEDS: buPROPion XL 150 MG TAB PO SCH ×2 (09:20→10:48)
[2021-12-31] MEDS: metFORMIN XR 500MG TAB PO SCH ×2 (09:57→09:58)
[2021-12-31] MEDS: LATANOPROST 0.005% OPHTH SOLN 2.5 ML OU SCH ×2 (16:59→17:23)
[2021-12-31] MEDS: MELATONIN 5 MG TAB PO SCH (22:01)
[2021-12-31] MEDS: risperiDONE 1 MG TAB PO SCH (22:02)
[2022-01-01] MEDS: BRIMONIDINE 0.15% OPHTH SOLN OU SCH ×4 (05:30→21:12)
[2022-01-01] MEDS: INSULIN LISPRO 100 UNIT/ML SUB-Q SCH ×4 (08:15→21:13)
--- NOTE | 2022-01-01 08:34 | Progress Note ---
Subjective Date of service: 01/01/22 Subjective Comment: 01/01: The patient was seen this morning. He states he is doing well and ready for breakfast. When asked about suicidality, he states " I want to to kill myself" then chuckled afterwards; he states no plan. The patient is confused and has been non compliant with medications. Per nurse, At the beginning of the shift the patient voiced SI to tech. He became tearful. Then pt presented as trying to laugh it off. He denied a plan but stated he could "find a way". The patient will be placed on line of sight level of observation, and to engage in therapeutic milieu. 12/31:The patient was seen resting in bed. No event reported from last night. 12/30: The patient was seen resting in bed. He states he is fine. He is pleasantly confused. No aggressive behavior reported. 12/29:The patient was seen this morning. He reports doing well. The patient is calm, alert and oriented to self with some confusion. Per nurse, he has been refusing his meds. Some irritability but no aggressive behavior reported. REVIEW OF SYSTEMS Unable to obtain MENTAL STATUS EXAMINATION Unable to obtain Diagnoses: Dementia with Behavioral Disturbance Treatment Plan Patient admitted for inpatient psychiatric evaluation, medication adjustment and close monitoring The patient's behavior, mood, sleep and appetite will be closely monitored. Patient enrolled in individual and group therapeutic sessions and encouraged to attend. Patient provided with a safe and structured environment. Patient's physical health needs will be addressed by the Hospitalist. Hospitalist Consulted Labs including CBC, CMP, Lipid profile and Hemoglobin A1C levels ordered for baseline reference Social Assessment will be completed and the Foot Piece Assembler will work with patient and family to ensure a suitable and safe disposition Medication adjustment will be made as clinically indicated Continue home meds Usual Wellness Gnosticism/Preservation: - Start Trazodone 50 mg po QHS & 50 mg po QHS PRN between 10 PM & 2 AM for insomnia - Start Melatonin 5 mg po QHS to promote circadian rhythm The patient agreed on the treatment plan, understood the risk, benefit, alternative treatment, potential consequence of no treatment, and gave informed consent. Estimated days: 7 Post hospital care: primary care provider, psychiatric provider Case staffed with Dr. Arreguin Legal Status: Voluntary Medications and Allergie Mental Status Exam Medications and Allergies Allergies Allergy/AdvReac Type Severity Reaction Status Date / Time No Known Allergies Allergy Verified 09/23/21 16:39 Home Medications Medication Instructions Recorded Confirmed Last Taken Type Amlodipine Besylate [Norvasc] 10 mg PO DAILY 09/07/14 12/27/21 09/06/14 History Aspirin [Aspirin BABY CHEW TAB] 81 mg PO DAILY 09/07/14 12/27/21 09/06/14 History 81 mg lisinopriL [Zestril TAB] 40 mg PO QDAY 09/07/14 12/27/21 09/06/14 History AtorvaSTATin [Lipitor] 20 mg PO QHS 09/24/21 12/27/21 Unknown History Brimonidine Tartrate [Brimonidine 1 drop OP Q8HR 09/24/21 12/27/21 Unknown History Tartrate 0.2%] Cyanocobalamin (Vitamin B-12) 500 mg PO QDAY 09/24/21 12/27/21 Unknown History [Vitamin B-12] Fluorometholone [Fml S.o.p] 3.5 gm OP QDAY 09/24/21 12/27/21 Unknown History Insulin Aspart Flexpen 12 units SUB-Q ACHS 09/24/21 12/27/21 Unknown History Omeprazole 20 mg PO QDAY 09/24/21 12/27/21 Unknown History Sertraline [Zoloft] 150 mg PO QDAY 09/24/21 12/27/21 Unknown History Sildenafil Citrate 50 mg PO 1XW PRN MDD 1 TAB 09/24/21 12/27/21 Unknown History buPROPion HCL [Bupropion Xl] 150 mg PO QDAY 09/24/21 12/27/21 Unknown History carvediloL [Coreg] 25 mg PO BID 09/24/21 12/27/21 Unknown History risperiDONE [RisperDAL] 0.5 mg PO QHS 09/24/21 12/27/21 Unknown History Latanoprost 0.005% [Xalatan 0.005%] 1 drop OP QPM 12/27/21 12/27/21 Unknown History Melatonin [Melatonin 3MG TAB] 3 mg PO HS 12/27/21 12/27/21 Unknown History metFORMIN XR [Glucophage XR] 500 mg PO QDAY 12/27/21 12/27/21 Unknown History methazolAMIDE [Methazolamide] 50 mg PO BID 12/27/21 12/27/21 Unknown History Active Meds: Active Medications Amlodipine Besylate (Amlodipine 10 Mg Tab) 10 mg PO DAILY [facility] Last Admin: 12/31/21 10:01 Dose: Not Given Aspirin (Aspirin 81 Mg Tab Chew) 81 mg PO DAILY [facility] Last Admin: 12/31/21 10:01 Dose: Not Given Atorvastatin Calcium (Atorvastatin 20 Mg Tab) 20 mg PO QHS [facility] Last Admin: 12/31/21 22:01 Dose: Not Given Brimonidine Tartrate (Brimonidine 0.15% Ophth Soln) 1 drops OU Q8HR [facility] Last Admin: 01/01/22 05:30 Dose: Not Given Bupropion HCl (Bupropion Xl 150 Mg Tab) 150 mg PO QDAY [facility] Last Admin: 12/31/21 10:48 Dose: Not Given Carvedilol (Carvedilol 25 Mg Tab) 25 mg PO BID [facility] Last Admin: 12/31/21 21:50 Dose: Not Given Cyanocobalamin (Cyanocobalamin (Vit B-12) 1000 Mcg Tab) 500 mcg PO QDAY [facility] Last Admin: 12/31/21 10:00 Dose: Not Given Insulin Human Lispro (Insulin Lispro 100 Unit/Ml) 12 unit SUB-Q ACHS [facility] Last Admin: 12/31/21 21:51 Dose: Not Given Latanoprost (Latanoprost 0.005% Ophth Soln 2.5 Ml) 1 drops OU QPM [facility] Last Admin: 12/31/21 17:23 Dose: 1 drops Lisinopril (Lisinopril 40 Mg Tab) 40 mg PO QDAY [facility] Last Admin: 12/31/21 17:22 Dose: Not Given Melatonin (Melatonin 5 Mg Tab) 5 mg PO QHS [facility] Last Admin: 12/31/21 22:01 Dose: Not Given Metformin HCl (Metformin Xr 500mg Tab) 500 mg PO QDDIAB [facility] Last Admin: 12/31/21 09:58 Dose: Not Given Miscellaneous Medication (Fluorometholone [Fml S.O.P. 0.25%]) 3.5 gm OP QDAY [facility] Miscellaneous Medication (Methazolamide [Methazolamide]) 50 mg PO BID [facility] Pantoprazole Sodium (Pantoprazole 20 Mg Tab) 20 mg PO QDAY [facility] Last Admin: 12/31/21 10:00 Dose: Not Given Risperidone (Risperidone 1 Mg Tab) 0.5 mg PO QHS [facility] Last Admin: 12/31/21 22:02 Dose: Not Given Sertraline HCl (Sertraline 50 Mg Tab) 150 mg PO QDAY [facility] Last Admin: 12/31/21 17:22 Dose: Not Given Results - Results Labs/Vitals: Laboratory Last Values WBC 4.3 K/mm3 (4.5-11.0) L 12/27/21 23:33 RBC 3.33 M/mm3 (3.65-5.03) L 12/27/21 23:33 Hgb 10.1 gm/dl (11.8-15.2) L 12/27/21 23:33 Hct 30.8 % (35.5-45.6) L 12/27/21 23: MCV 92 fl (84-94) 12/27/21 23: MCH 30 pg (28-32) 12/27/21 23: MCHC 33 % (32-34) 12/27/21 23: RDW 13.2 % (13.2-15.2) 12/27/21 23: Plt Count 185 K/mm3 (140-440) 12/27/21 23:33 Lymph % (Auto) 48.0 % (13.4-35.0) H 12/27/21 23:33 [place] % (Auto) 12.7 % (0.0-7.3) H 12/27/21 23:33 Eos % (Auto) 3.0 % (0.0-4.3) 12/27/21 23: Baso % (Auto) 0.6 % (0.0-1.8) 12/27/21 23: Lymph # (Auto) 2.1 K/mm3 (1.2-5.4) 12/27/21 23:33 [place] # (Auto) 0.5 K/mm3 (0.0-0.8) 12/27/21 23: Eos # (Auto) 0.1 K/mm3 (0.0-0.4) 12/27/21 23: Baso # (Auto) 0.0 K/mm3 (0.0-0.1) 12/27/21 23: Seg Neutrophils % 35.7 % (40.0-70.0) L 06/22/22 23:33 Seg Neutrophils # 1.5 K/mm3 (1.8-7.7) L 12/27/21 23:33 Sodium 136 mmol/L (137-145) L 12/27/21 23:33 Potassium 3.9 mmol/L (3.6-5.0) 12/27/21 23:33 Chloride 101.9 mmol/L (98-107) 12/27/21 23:33 Carbon Dioxide 20 mmol/L (22-30) L 12/27/21 23:33 Anion Gap 18 mmol/L 12/27/21 23:33 BUN 29 mg/dL (9-20) H 12/27/21 23:33 Creatinine 1.8 mg/dL (0.8-1.3) H 12/27/21 23:33 Estimated GFR 44 ml/min 12/27/21 23:33 BUN/Creatinine Ratio 16 % 12/27/21 23:33 Glucose 119 mg/dL (75-100) H 12/27/21 23:33 POC Glucose 102 mg/dL (70-105) 01/01/22 08:10 Hemoglobin A1c 6.4 % (4-6) H 12/27/21 23:33 Calcium 9.3 mg/dL (8.4-10.2) 12/27/21 23:33 Total Bilirubin 0.60 mg/dL (0.1-1.2) 12/27/21 23:33 AST 32 units/L (5-40) 12/27/21 23:33 ALT 22 units/L (7-56) 12/27/21 23:33 Alkaline Phosphatase 85 units/L (35-129) 12/27/21 23:33 Total Protein 7.0 g/dL (6.3-8.2) 12/27/21 23:33 Albumin 3.9 g/dL (3.9-5) 12/27/21 23:33 Albumin/Globulin Ratio 1.3 % 12/27/21 23:33 Triglycerides 127 mg/dL (2-149) 12/27/21 23:33 Cholesterol 169 mg/dL (50-199) 12/27/21 23:33 LDL Cholesterol Direct 114 mg/dL (50-130) 12/27/21 23:33 HDL Cholesterol 31 mg/dL (40-59) L 12/27/21 23:33 Cholesterol/HDL Ratio 5.45 % 12/27/21 23:33 TSH 1.330 mlU/mL (0.270-4.200) 12/27/21 23:33 Last Vital Signs Temp 98.4 F 12/31/21 07:27 Pulse 68 12/31/21 07:30 Resp 16 12/31/21 07:27 BP 158/62 12/31/21 07:30 Pulse Ox 99 12/31/21 07:30
[2022-01-01] MEDS: CYANOCOBALAMIN (VIT B-12) 1000 MCG TAB PO SCH (10:24)
[2022-01-01] MEDS: SERTRALINE 50 MG TAB PO SCH (10:24)
[2022-01-01] MEDS: metFORMIN XR 500MG TAB PO SCH (10:25)
[2022-01-01] MEDS: ASPIRIN 81 MG TAB CHEW PO SCH (10:25)
[2022-01-01] MEDS: carvediloL 25 MG TAB PO SCH ×2 (10:27→21:12)
[2022-01-01] MEDS: buPROPion XL 150 MG TAB PO SCH (10:27)
[2022-01-01] MEDS: LISINOPRIL 40 MG TAB PO SCH (10:28)
[2022-01-01] MEDS: amLODIPine 10 MG TAB PO SCH (10:28)
[2022-01-01] MEDS: PANTOPRAZOLE 20 MG TAB PO SCH (10:29)
[2022-01-01] MEDS: LATANOPROST 0.005% OPHTH SOLN 2.5 ML OU SCH (18:21)
[2022-01-01] MEDS: MELATONIN 5 MG TAB PO SCH (21:11)
[2022-01-01] MEDS: risperiDONE 1 MG TAB PO SCH (21:12)
[2022-01-02] MEDS: BRIMONIDINE 0.15% OPHTH SOLN OU SCH ×3 (06:16→21:48)
[2022-01-02] MEDS: ASPIRIN 81 MG TAB CHEW PO SCH (09:32)
[2022-01-02] MEDS: buPROPion XL 150 MG TAB PO SCH (09:32)
[2022-01-02] MEDS: PANTOPRAZOLE 20 MG TAB PO SCH (09:32)
[2022-01-02] MEDS: CYANOCOBALAMIN (VIT B-12) 1000 MCG TAB PO SCH (09:33)
[2022-01-02] MEDS: SERTRALINE 50 MG TAB PO SCH (09:33)
[2022-01-02] MEDS: carvediloL 25 MG TAB PO SCH ×2 (09:34→21:49)
[2022-01-02] MEDS: LISINOPRIL 40 MG TAB PO SCH (09:34)
[2022-01-02] MEDS: amLODIPine 10 MG TAB PO SCH (09:35)
--- NOTE | 2022-01-02 09:35 | Progress Note ---
Subjective Date of service: 01/02/22 Subjective Comment: 01/02: The patient was seen this morning. He reports doing "ok" and ready for breakfast. He reports sleep and appetite as good. No aggressive behavior reported. He denies any current suicidal/homicidal ideation and denies hallucinations. 01/01: The patient was seen this morning. He states he is doing well and ready for breakfast. When asked about suicidality, he states " I want to to kill myself" then chuckled afterwards; he states no plan. The patient is confused and has been non compliant with medications. Per nurse, At the beginning of the shift the patient voiced SI to tech. He became tearful. Then pt presented as trying to laugh it off. He denied a plan but stated he could "find a way". The patient will be placed on line of sight level of observation, and to engage in therapeutic milieu. 12/31:The patient was seen resting in bed. No event reported from last night. 12/30: The patient was seen resting in bed. He states he is fine. He is pleasantly confused. No aggressive behavior reported. 12/29:The patient was seen this morning. He reports doing well. The patient is calm, alert and oriented to self with some confusion. Per nurse, he has been refusing his meds. Some irritability but no aggressive behavior reported. REVIEW OF SYSTEMS Unable to obtain MENTAL STATUS EXAMINATION Unable to obtain Diagnoses: Dementia with Behavioral Disturbance Treatment Plan Patient admitted for inpatient psychiatric evaluation, medication adjustment and close monitoring The patient's behavior, mood, sleep and appetite will be closely monitored. Patient enrolled in individual and group therapeutic sessions and encouraged to attend. Patient provided with a safe and structured environment. Patient's physical health needs will be addressed by the Hospitalist. Hospitalist Consulted Labs including CBC, CMP, Lipid profile and Hemoglobin A1C levels ordered for baseline reference Social Assessment will be completed and the Windows Administrator will work with patient and family to ensure a suitable and safe disposition Medication adjustment will be made as clinically indicated Continue home meds Usual Wellness Sabianism/Preservation: - Start Trazodone 50 mg po QHS & 50 mg po QHS PRN between 10 PM & 2 AM for insomnia - Start Melatonin 5 mg po QHS to promote circadian rhythm The patient agreed on the treatment plan, understood the risk, benefit, alternative treatment, potential consequence of no treatment, and gave informed consent. Estimated days: 1 Post hospital care: primary care provider, psychiatric provider Case staffed with Dr. Arreguin Legal Status: Voluntary Medications and Allergies Medications and Allergies Allergies Allergy/AdvReac Type Severity Reaction Status Date / Time No Known Allergies Allergy Verified 09/23/21 16:39 Home Medications Medication Instructions Recorded Confirmed Last Taken Type Amlodipine Besylate [Norvasc] 10 mg PO DAILY 09/07/14 12/27/21 09/06/14 History Aspirin [Aspirin BABY CHEW TAB] 81 mg PO DAILY 09/07/14 12/27/21 09/06/14 History 81 mg lisinopriL [Zestril TAB] 40 mg PO QDAY 09/07/14 12/27/21 09/06/14 History AtorvaSTATin [Lipitor] 20 mg PO QHS 09/24/21 12/27/21 Unknown History Brimonidine Tartrate [Brimonidine 1 drop OP Q8HR 09/24/21 12/27/21 Unknown History Tartrate 0.2%] Cyanocobalamin (Vitamin B-12) 500 mg PO QDAY 09/24/21 12/27/21 Unknown History [Vitamin B-12] Fluorometholone [Fml S.o.p] 3.5 gm OP QDAY 09/24/21 12/27/21 Unknown History Insulin Aspart Flexpen 12 units SUB-Q ACHS 09/24/21 12/27/21 Unknown History Omeprazole 20 mg PO QDAY 09/24/21 12/27/21 Unknown History Sertraline [Zoloft] 150 mg PO QDAY 09/24/21 12/27/21 Unknown History Sildenafil Citrate 50 mg PO 1XW PRN MDD 1 TAB 09/24/21 12/27/21 Unknown History buPROPion HCL [Bupropion Xl] 150 mg PO QDAY 09/24/21 12/27/21 Unknown History carvediloL [Coreg] 25 mg PO BID 09/24/21 12/27/21 Unknown History risperiDONE [RisperDAL] 0.5 mg PO QHS 09/24/21 12/27/21 Unknown History Latanoprost 0.005% [Xalatan 0.005%] 1 drop OP QPM 12/27/21 12/27/21 Unknown History Melatonin [Melatonin 3MG TAB] 3 mg PO HS 12/27/21 12/27/21 Unknown History metFORMIN XR [Glucophage XR] 500 mg PO QDAY 12/27/21 12/27/21 Unknown History methazolAMIDE [Methazolamide] 50 mg PO BID 12/27/21 12/27/21 Unknown History Active Meds: Active Medications Amlodipine Besylate (Amlodipine 10 Mg Tab) 10 mg PO DAILY [facility] Last Admin: 01/01/22 10:28 Dose: 10 mg Aspirin (Aspirin 81 Mg Tab Chew) 81 mg PO DAILY [facility] Last Admin: 01/01/22 10:25 Dose: 81 mg Atorvastatin Calcium (Atorvastatin 20 Mg Tab) 20 mg PO QHS [facility] Last Admin: 01/01/22 21:11 Dose: 20 mg Brimonidine Tartrate (Brimonidine 0.15% Ophth Soln) 1 drops OU Q8HR [facility] Last Admin: 01/02/22 06:16 Dose: 1 drops Bupropion HCl (Bupropion Xl 150 Mg Tab) 150 mg PO QDAY [facility] Last Admin: 01/01/22 10:27 Dose: 150 mg Carvedilol (Carvedilol 25 Mg Tab) 25 mg PO BID [facility] Last Admin: 01/01/22 21:12 Dose: 25 mg Cyanocobalamin (Cyanocobalamin (Vit B-12) 1000 Mcg Tab) 500 mcg PO QDAY [facility] Last Admin: 01/01/22 10:24 Dose: 500 mcg Insulin Human Lispro (Insulin Lispro 100 Unit/Ml) 12 unit SUB-Q ACHS [facility] Last Admin: 01/01/22 21:13 Dose: Not Given Latanoprost (Latanoprost 0.005% Ophth Soln 2.5 Ml) 1 drops OU QPM [facility] Last Admin: 01/01/22 18:21 Dose: 1 drops Lisinopril (Lisinopril 40 Mg Tab) 40 mg PO QDAY [facility] Last Admin: 01/01/22 10:28 Dose: 40 mg Melatonin (Melatonin 5 Mg Tab) 5 mg PO QHS [facility] Last Admin: 01/01/22 21:11 Dose: 5 mg Metformin HCl (Metformin Xr 500mg Tab) 500 mg PO QDDIAB [facility] Last Admin: 01/01/22 10:25 Dose: 500 mg Miscellaneous Medication (Fluorometholone [Fml S.O.P. 0.25%]) 3.5 gm OP QDAY [facility] Miscellaneous Medication (Methazolamide [Methazolamide]) 50 mg PO BID [facility] Pantoprazole Sodium (Pantoprazole 20 Mg Tab) 20 mg PO QDAY [facility] Last Admin: 01/01/22 10:29 Dose: 20 mg Risperidone (Risperidone 1 Mg Tab) 0.5 mg PO QHS [facility] Last Admin: 01/01/22 21:12 Dose: 0.5 mg Sertraline HCl (Sertraline 50 Mg Tab) 150 mg PO QDAY [facility] Last Admin: 01/01/22 10:24 Dose: 150 mg Results - Results Labs/Vitals: Laboratory Last Values WBC 4.3 K/mm3 (4.5-11.0) L 12/27/21 23: RBC 3.33 M/mm3 (3.65-5.03) L 12/27/21 23:33 Hgb 10.1 gm/dl (11.8-15.2) L 12/27/21 23:33 Hct 30.8 % (35.5-45.6) L 12/27/21 23:33 MCV 92 fl (84-94) 12/27/21 23:33 MCH 30 pg (28-32) 12/27/21 23: MCHC 33 % (32-34) 12/27/21 23:33 RDW 13.2 % (13.2-15.2) 12/27/21 23:33 Plt Count 185 K/mm3 (140-440) 12/27/21 23:33 Lymph % (Auto) 48.0 % (13.4-35.0) H 12/27/21 23:33 [place] % (Auto) 12.7 % (0.0-7.3) H 12/27/21 23:33 Eos % (Auto) 3.0 % (0.0-4.3) 12/27/21 23:33 Baso % (Auto) 0.6 % (0.0-1.8) 12/27/21 23: Lymph # (Auto) 2.1 K/mm3 (1.2-5.4) 12/27/21 23:33 [place] # (Auto) 0.5 K/mm3 (0.0-0.8) 12/27/21 23: Eos # (Auto) 0.1 K/mm3 (0.0-0.4) 12/27/21 23:33 Baso # (Auto) 0.0 K/mm3 (0.0-0.1) 12/27/21 23:33 Seg Neutrophils % 35.7 % (40.0-70.0) L 12/27/21 23:33 Seg Neutrophils # 1.5 K/mm3 (1.8-7.7) L 12/27/21 23:33 Sodium 136 mmol/L (137-145) L 12/27/21 23:33 Potassium 3.9 mmol/L (3.6-5.0) 12/27/21 23:33 Chloride 101.9 mmol/L (98-107) 12/27/21 23:33 Carbon Dioxide 20 mmol/L (22-30) L 12/27/21 23:33 Anion Gap 18 mmol/L 12/27/21 23:33 BUN 29 mg/dL (9-20) H 12/27/21 23:33 Creatinine 1.8 mg/dL (0.8-1.3) H 12/27/21 23:33 Estimated GFR 44 ml/min 12/27/21 23:33 BUN/Creatinine Ratio 16 % 12/27/21 23:33 Glucose 119 mg/dL (75-100) H 12/27/21 23:33 POC Glucose 104 mg/dL (70-105) 01/01/22 19:54 Hemoglobin A1c 6.4 % (4-6) H 12/27/21 23:33 Calcium 9.3 mg/dL (8.4-10.2) 12/27/21 23:33 Total Bilirubin 0.60 mg/dL (0.1-1.2) 12/27/21 23:33 AST 32 units/L (5-40) 12/27/21 23:33 ALT 22 units/L (7-56) 12/27/21 23:33 Alkaline Phosphatase 85 units/L (35-129) 12/27/21 23:33 Total Protein 7.0 g/dL (6.3-8.2) 12/27/21 23:33 Albumin 3.9 g/dL (3.9-5) 12/27/21 23:33 Albumin/Globulin Ratio 1.3 % 12/27/21 23:33 Triglycerides 127 mg/dL (2-149) 12/27/21 23:33 Cholesterol 169 mg/dL (50-199) 12/27/21 23:33 LDL Cholesterol Direct 114 mg/dL (50-130) 12/27/21 23:33 HDL Cholesterol 31 mg/dL (40-59) L 12/27/21 23:33 Cholesterol/HDL Ratio 5.45 % 12/27/21 23:33 TSH 1.330 mlU/mL (0.270-4.200) 12/27/21 23:33 Last Vital Signs Temp 98.7 F 01/02/22 08:55 Pulse 71 01/02/22 08:55 Resp 18 01/02/22 08:55 BP 114/49 01/02/22 08:55 Pulse Ox 99 01/02/22 08:55
[2022-01-02] MEDS: INSULIN LISPRO 100 UNIT/ML SUB-Q SCH ×4 (09:38→22:18)
[2022-01-02] MEDS: metFORMIN XR 500MG TAB PO SCH (09:57)
[2022-01-02] MEDS: LATANOPROST 0.005% OPHTH SOLN 2.5 ML OU SCH (17:07)
--- NOTE | 2022-01-02 19:08 | Progress Note ---
Assessment and Plan Assessment and Plan - Patient Problems (1) Vascular dementia with behavioral disturbance Current Visit: Yes Status: Acute Plan to address problem: Verbal prompting, verbal redirection, benzodiazepine therapy as clinically indicated. (2) Cerebral atherosclerosis Current Visit: Yes Status: Acute Plan to address problem: Antiplatelet therapy as clinically indicated, risk factor reduction. (3) Hypertension Current Visit: Yes Status: Acute Qualifiers: Hypertension type: primary hypertension Qualified Code(s): I10 - Essential (primary) hypertension Plan to address problem: Monitor blood pressure every shift, continue medical management. (4) Hyperlipidemia Current Visit: Yes Status: Acute Qualifiers: Hyperlipidemia type: mixed hyperlipidemia Qualified Code(s): E78.2 - Mixed hyperlipidemia Plan to address problem: Statin therapy, low-cholesterol diet (5) Diabetes Current Visit: Yes Status: Acute Plan to address problem: Consistent carbohydrate diet, Accu-Chek, continue oral antihyperglycemic ther apy, hypoglycemia protocol. (6) Advance care planning Current Visit: Yes Status: Acute Plan to address problem: Disease education done, care plan discussed, diagnoses discussed, prognosis discussed, patient is full code. Patient acknowledges understanding and agreement with care plan, +30 minutes. (7) Preventative health care Current Visit: Yes Status: Acute Plan to address problem: Patient counseled regarding risk factor reduction, home safety measures, outpatient follow-up with primary care physician for all age and risk factor appropriate screening test, +30 minutes. Subjective Date of service: 01/02/22 Principal diagnosis: Vascular dementia with behavioral disturbance Interval history: History Interval history: 86 YO Male with Vascular Dementia with Behavioral Disturbance, Cerebral Atherosclerosis, HTN, HLD, DM, GERD, CKD, MARGARETH admitted to [facility] for psychiatric stabilization. Consult placed by Dr. Thompson for medical management. Patient seen and evaluated in the recreation room. Patient resting. Patient has diminished cognition but appears to be at baseline level of cognition and function. 01/02/22 Resting comfortably Objective - Constitutional Vitals: Vital Signs - 12hr 01/02/22 01/02/22 01/02/22 08:55 09:34 09:35 Temperature 98.7 F Pulse Rate 71 71 Respiratory 18 Rate Blood Pressure 114/49 114/49 114/49 O2 Sat by Pulse 99 Oximetry General appearance: Present: no acute distress, well-nourished - EENT Eyes: PERRL, EOM intact ENT: hearing intact, clear oral mucosa Ears: bilateral: normal - Neck Neck: supple, normal ROM - Respiratory Respiratory effort: normal Respiratory: bilateral: CTA - Breasts Breasts: normal - Cardiovascular Heart rate: 78 Rhythm: regular Heart Sounds: Present: S1 & S2. Absent: gallop, rub Extremities: pulses intact, No edema, normal color, Full ROM - Gastrointestinal General gastrointestinal: Present: soft, non-tender, non-distended, normal bowel sounds - Genitourinary Male genitourinary: normal - Integumentary Integumentary: clear, warm, dry - Musculoskeletal Musculoskeletal: 1, strength equal bilaterally - Neurologic Neurologic: moves all extremities - Psychiatric Psychiatric: memory intact, appropriate mood/affect, intact judgment & insight - Allied health notes Allied health notes reviewed: nursing, case management - Labs CBC & Chem 7: 12/27/21 23:33 12/27/21 23:33
[2022-01-02] MEDS: risperiDONE 1 MG TAB PO SCH (21:47)
[2022-01-02] MEDS: MELATONIN 5 MG TAB PO SCH (21:47)
[2022-01-03] MEDS: BRIMONIDINE 0.15% OPHTH SOLN OU SCH ×3 (06:56→21:23)
[2022-01-03] MEDS: INSULIN LISPRO 100 UNIT/ML SUB-Q SCH ×4 (08:35→21:23)
[2022-01-03] MEDS: CYANOCOBALAMIN (VIT B-12) 1000 MCG TAB PO SCH (09:24)
[2022-01-03] MEDS: metFORMIN XR 500MG TAB PO SCH (09:25)
[2022-01-03] MEDS: carvediloL 25 MG TAB PO SCH ×2 (09:25→21:22)
[2022-01-03] MEDS: LISINOPRIL 40 MG TAB PO SCH (09:25)
[2022-01-03] MEDS: ASPIRIN 81 MG TAB CHEW PO SCH (09:25)
[2022-01-03] MEDS: buPROPion XL 150 MG TAB PO SCH (09:25)
[2022-01-03] MEDS: SERTRALINE 50 MG TAB PO SCH (09:25)
[2022-01-03] MEDS: PANTOPRAZOLE 20 MG TAB PO SCH (09:25)
[2022-01-03] MEDS: amLODIPine 10 MG TAB PO SCH (09:26)
--- NOTE | 2022-01-03 09:34 | Progress Note ---
Subjective Date of service: 01/03/22 Principal diagnosis: Vascular dementia with behavioral disturbance Subjective Comment: 01/03:The patient was seen this morning. he reports doing well. He reports sleep and appetite as good. He denies any current suicidal/homicidal ideation and denies hallucinations. No aggressive behavior reported. No changes made today. 01/02: The patient was seen this morning. He reports doing "ok" and ready for breakfast. He reports sleep and appetite as good. No aggressive behavior reported. He denies any current suicidal/homicidal ideation and denies hallucinations. 01/01: The patient was seen this morning. He states he is doing well and ready for breakfast. When asked about suicidality, he states " I want to to kill myself" then chuckled afterwards; he states no plan. The patient is confused and has been non compliant with medications. Per nurse, At the beginning of the shift the patient voiced SI to tech. He became tearful. Then pt presented as trying to laugh it off. He denied a plan but stated he could "find a way". The patient will be placed on line of sight level of observation, and to engage in therapeutic milieu. 12/31:The patient was seen resting in bed. No event reported from last night. 12/30: The patient was seen resting in bed. He states he is fine. He is pleasantly confused. No aggressive behavior reported. 12/29:The patient was seen this morning. He reports doing well. The patient is calm, alert and oriented to self with some confusion. Per nurse, he has been refusing his meds. Some irritability but no aggressive behavior reported. REVIEW OF SYSTEMS Unable to obtain MENTAL STATUS EXAMINATION Unable to obtain Diagnoses: Dementia with Behavioral Disturbance Treatment Plan Patient admitted for inpatient psychiatric evaluation, medication adjustment and close monitoring The patient's behavior, mood, sleep and appetite will be closely monitored. Patient enrolled in individual and group therapeutic sessions and encouraged to attend. Patient provided with a safe and structured environment. Patient's physical health needs will be addressed by the Hospitalist. Hospitalist Consulted Labs including CBC, CMP, Lipid profile and Hemoglobin A1C levels ordered for baseline reference Social Assessment will be completed and the Higher Level Teaching Assistant will work with patient and family to ensure a suitable and safe disposition Medication adjustment will be made as clinically indicated Continue home meds Usual Wellness Episcopalian/Preservation: - Start Trazodone 50 mg po QHS & 50 mg po QHS PRN between 10 PM & 2 AM for insomnia - Start Melatonin 5 mg po QHS to promote circadian rhythm The patient agreed on the treatment plan, understood the risk, benefit, alternative treatment, potential consequence of no treatment, and gave informed consent. Estimated days: 1 Post hospital care: primary care provider, psychiatric provider Case staffed with Dr. Arreguin Legal Status: Voluntary Medications and Allergies Medications and Allergies Allergies Allergy/AdvReac Type Severity Reaction Status Date / Time No Known Allergies Allergy Verified 09/23/21 16:39 Home Medications Medication Instructions Recorded Confirmed Last Taken Type Amlodipine Besylate [Norvasc] 10 mg PO DAILY 09/07/14 12/27/21 09/06/14 History Aspirin [Aspirin BABY CHEW TAB] 81 mg PO DAILY 09/07/14 12/27/21 09/06/14 History 81 mg lisinopriL [Zestril TAB] 40 mg PO QDAY 09/07/14 12/27/21 09/06/14 History AtorvaSTATin [Lipitor] 20 mg PO QHS 09/24/21 12/27/21 Unknown History Brimonidine Tartrate [Brimonidine 1 drop OP Q8HR 09/24/21 12/27/21 Unknown History Tartrate 0.2%] Cyanocobalamin (Vitamin B-12) 500 mg PO QDAY 09/24/21 12/27/21 Unknown History [Vitamin B-12] Fluorometholone [Fml S.o.p] 3.5 gm OP QDAY 09/24/21 12/27/21 Unknown History Insulin Aspart Flexpen 12 units SUB-Q ACHS 09/24/21 12/27/21 Unknown History Omeprazole 20 mg PO QDAY 09/24/21 12/27/21 Unknown History Sertraline [Zoloft] 150 mg PO QDAY 09/24/21 12/27/21 Unknown History Sildenafil Citrate 50 mg PO 1XW PRN MDD 1 TAB 09/24/21 12/27/21 Unknown History buPROPion HCL [Bupropion Xl] 150 mg PO QDAY 09/24/21 12/27/21 Unknown History carvediloL [Coreg] 25 mg PO BID 09/24/21 12/27/21 Unknown History risperiDONE [RisperDAL] 0.5 mg PO QHS 09/24/21 12/27/21 Unknown History Latanoprost 0.005% [Xalatan 0.005%] 1 drop OP QPM 12/27/21 12/27/21 Unknown History Melatonin [Melatonin 3MG TAB] 3 mg PO HS 12/27/21 12/27/21 Unknown History metFORMIN XR [Glucophage XR] 500 mg PO QDAY 12/27/21 12/27/21 Unknown History methazolAMIDE [Methazolamide] 50 mg PO BID 12/27/21 12/27/21 Unknown History Active Meds: Active Medications Amlodipine Besylate (Amlodipine 10 Mg Tab) 10 mg PO DAILY [facility] Last Admin: 01/03/22 09:26 Dose: 10 mg Aspirin (Aspirin 81 Mg Tab Chew) 81 mg PO DAILY [facility] Last Admin: 01/03/22 09:25 Dose: 81 mg Atorvastatin Calcium (Atorvastatin 20 Mg Tab) 20 mg PO QHS [facility] Last Admin: 01/02/22 21:47 Dose: 20 mg Brimonidine Tartrate (Brimonidine 0.15% Ophth Soln) 1 drops OU Q8HR [facility] Last Admin: 01/03/22 06:56 Dose: 1 drops Bupropion HCl (Bupropion Xl 150 Mg Tab) 150 mg PO QDAY [facility] Last Admin: 01/03/22 09:25 Dose: 150 mg Carvedilol (Carvedilol 25 Mg Tab) 25 mg PO BID [facility] Last Admin: 01/03/22 09:25 Dose: 25 mg Cyanocobalamin (Cyanocobalamin (Vit B-12) 1000 Mcg Tab) 500 mcg PO QDAY [facility] Last Admin: 01/03/22 09:24 Dose: 500 mcg Insulin Human Lispro (Insulin Lispro 100 Unit/Ml) 12 unit SUB-Q ACHS [facility] Last Admin: 01/03/22 08:35 Dose: Not Given Latanoprost (Latanoprost 0.005% Ophth Soln 2.5 Ml) 1 drops OU QPM [facility] Last Admin: 01/02/22 17:07 Dose: 1 drops Lisinopril (Lisinopril 40 Mg Tab) 40 mg PO QDAY [facility] Last Admin: 01/02/22 09:34 Dose: Not Given Melatonin (Melatonin 5 Mg Tab) 5 mg PO QHS [facility] Last Admin: 01/02/22 21:47 Dose: 5 mg Metformin HCl (Metformin Xr 500mg Tab) 500 mg PO QDDIAB [facility] Last Admin: 01/03/22 09:25 Dose: 500 mg Miscellaneous Medication (Fluorometholone [Fml S.O.P. 0.25%]) 3.5 gm OP QDAY [facility] Miscellaneous Medication (Methazolamide [Methazolamide]) 50 mg PO BID [facility] Pantoprazole Sodium (Pantoprazole 20 Mg Tab) 20 mg PO QDAY [facility] Last Admin: 01/03/22 09:25 Dose: 20 mg Risperidone (Risperidone 1 Mg Tab) 0.5 mg PO QHS [facility] Last Admin: 01/02/22 21:47 Dose: 0.5 mg Sertraline HCl (Sertraline 50 Mg Tab) 150 mg PO QDAY [facility] Last Admin: 01/03/22 09:25 Dose: 150 mg Results - Results Labs/Vitals: Laboratory Last Values WBC 4.3 K/mm3 (4.5-11.0) L 12/27/21 23:33 RBC 3.33 M/mm3 (3.65-5.03) L 12/27/21 23:33 Hgb 10.1 gm/dl (11.8-15.2) L 12/27/21 23:33 Hct 30.8 % (35.5-45.6) L 12/27/21 23:33 MCV 92 fl (84-94) 12/27/21 23:33 MCH 30 pg (28-32) 12/27/21 23:33 MCHC 33 % (32-34) 12/27/21 23:33 RDW 13.2 % (13.2-15.2) 12/27/21 23:33 Plt Count 185 K/mm3 (140-440) 12/27/21 23:33 Lymph % (Auto) 48.0 % (13.4-35.0) H 12/27/21 23:33 [place] % (Auto) 12.7 % (0.0-7.3) H 12/27/21 23:33 Eos % (Auto) 3.0 % (0.0-4.3) 12/27/21 23:33 Baso % (Auto) 0.6 % (0.0-1.8) 12/27/21 23:33 Lymph # (Auto) 2.1 K/mm3 (1.2-5.4) 12/27/21 23:33 [place] # (Auto) 0.5 K/mm3 (0.0-0.8) 12/27/21 23:33 Eos # (Auto) 0.1 K/mm3 (0.0-0.4) 12/27/21 23:33 Baso # (Auto) 0.0 K/mm3 (0.0-0.1) 12/27/21 23:33 Seg Neutrophils % 35.7 % (40.0-70.0) L 12/27/21 23:33 Seg Neutrophils # 1.5 K/mm3 (1.8-7.7) L 12/27/21 23:33 Sodium 136 mmol/L (137-145) L 12/27/21 23:33 Potassium 3.9 mmol/L (3.6-5.0) 12/27/21 23:33 Chloride 101.9 mmol/L (98-107) 12/27/21 23:33 Carbon Dioxide 20 mmol/L (22-30) L 12/27/21 23:33 Anion Gap 18 mmol/L 12/27/21 23:33 BUN 29 mg/dL (9-20) H 12/27/21 23:33 Creatinine 1.8 mg/dL (0.8-1.3) H 12/27/21 23:33 Estimated GFR 44 ml/min 12/27/21 23:33 BUN/Creatinine Ratio 16 % 12/27/21 23:33 Glucose 119 mg/dL (75-100) H 12/27/21 23:33 POC Glucose 104 mg/dL (70-105) 01/01/22 19:54 Hemoglobin A1c 6.4 % (4-6) H 12/27/21 23:33 Calcium 9.3 mg/dL (8.4-10.2) 12/27/21 23:33 Total Bilirubin 0.60 mg/dL (0.1-1.2) 12/27/21 23:33 AST 32 units/L (5-40) 12/27/21 23:33 ALT 22 units/L (7-56) 12/27/21 23:33 Alkaline Phosphatase 85 units/L (35-129) 12/27/21 23:33 Total Protein 7.0 g/dL (6.3-8.2) 12/27/21 23:33 Albumin 3.9 g/dL (3.9-5) 12/27/21 23:33 Albumin/Globulin Ratio 1.3 % 12/27/21 23:33 Triglycerides 127 mg/dL (2-149) 12/27/21 23:33 Cholesterol 169 mg/dL (50-199) 12/27/21 23:33 LDL Cholesterol Direct 114 mg/dL (50-130) 12/27/21 23:33 HDL Cholesterol 31 mg/dL (40-59) L 12/27/21 23:33 Cholesterol/HDL Ratio 5.45 % 12/27/21 23:33 TSH 1.330 mlU/mL (0.270-4.200) 12/27/21 23:33 Last Vital Signs Temp 98.9 F 01/03/22 08:39 Pulse 84 01/03/22 09:26 Resp 16 01/03/22 08:39 BP 133/71 01/03/22 09:26 Pulse Ox 100 01/03/22 07:47
[2022-01-03] MEDS: LATANOPROST 0.005% OPHTH SOLN 2.5 ML OU SCH (17:03)
[2022-01-03] MEDS: MELATONIN 5 MG TAB PO SCH (21:22)
[2022-01-03] MEDS: risperiDONE 1 MG TAB PO SCH (21:22)
[2022-01-04] MEDS: BRIMONIDINE 0.15% OPHTH SOLN OU SCH ×3 (06:06→21:03)
[2022-01-04] MEDS: INSULIN LISPRO 100 UNIT/ML SUB-Q SCH ×4 (07:23→21:07)
--- NOTE | 2022-01-04 11:17 | Progress Note ---
Subjective Date of service: 01/04/22 Principal diagnosis: Vascular dementia with behavioral disturbance Subjective Comment: 01/04:The patient was seen this morning. He is focused on discharge. He reports sleep and appetite as good. He denies any current suicidal/homicidal ideation and denies hallucinations. No aggressive behavior reported. No changes made today. 01/03:The patient was seen this morning. He reports doing well. He reports sleep and appetite as good. He denies any current suicidal/homicidal ideation and denies hallucinations. No aggressive behavior reported. No changes made today. 01/02: The patient was seen this morning. He reports doing "ok" and ready for breakfast. He reports sleep and appetite as good. No aggressive behavior reported. He denies any current suicidal/homicidal ideation and denies hallucinations. 01/01: The patient was seen this morning. He states he is doing well and ready for breakfast. When asked about suicidality, he states " I want to to kill myself" then chuckled afterwards; he states no plan. The patient is confused and has been non compliant with medications. Per nurse, At the beginning of the shift the patient voiced SI to tech. He became tearful. Then pt presented as trying to laugh it off. He denied a plan but stated he could "find a way". The patient will be placed on line of sight level of observation, and to engage in therapeutic milieu. 12/31:The patient was seen resting in bed. No event reported from last night. 12/30: The patient was seen resting in bed. He states he is fine. He is pl easantly confused. No aggressive behavior reported. 12/29:The patient was seen this morning. He reports doing well. The patient is calm, alert and oriented to self with some confusion. Per nurse, he has been refusing his meds. Some irritability but no aggressive behavior reported. REVIEW OF SYSTEMS Unable to obtain MENTAL STATUS EXAMINATION Unable to obtain Diagnoses: Dementia with Behavioral Disturbance Treatment Plan Patient admitted for inpatient psychiatric evaluation, medication adjustment and close monitoring The patient's behavior, mood, sleep and appetite will be closely monitored. Patient enrolled in individual and group therapeutic sessions and encouraged to attend. Patient provided with a safe and structured environment. Patient's physical health needs will be addressed by the Hospitalist. Hospitalist Consulted Labs including CBC, CMP, Lipid profile and Hemoglobin A1C levels ordered for baseline reference Social Assessment will be completed and the Medical Record Coder will work with patient and family to ensure a suitable and safe disposition Medication adjustment will be made as clinically indicated Continue home meds Usual Wellness Muslim/Preservation: - Start Trazodone 50 mg po QHS & 50 mg po QHS PRN between 10 PM & 2 AM for insomnia - Start Melatonin 5 mg po QHS to promote circadian rhythm The patient agreed on the treatment plan, understood the risk, benefit, alternative treatment, potential consequence of no treatment, and gave informed consent. Estimated days: 1 Post hospital care: primary care provider, psychiatric provider Case staffed with Dr. Arreguin Legal Status: Voluntary Medications and Allergies Medications and Allergies Medications and Allergies Allergies Allergy/AdvReac Type Severity Reaction Status Date / Time No Known Allergies Allergy Verified 09/23/21 16:39 Home Medications Medication Instructions Recorded Confirmed Last Taken Type Amlodipine Besylate [Norvasc] 10 mg PO DAILY 09/07/14 12/27/21 09/06/14 History Aspirin [Aspirin BABY CHEW TAB] 81 mg PO DAILY 09/07/14 12/27/21 09/06/14 His tory 81 mg lisinopriL [Zestril TAB] 40 mg PO QDAY 09/07/14 12/27/21 09/06/14 History AtorvaSTATin [Lipitor] 20 mg PO QHS 09/24/21 12/27/21 Unknown History Brimonidine Tartrate [Brimonidine 1 drop OP Q8HR 09/24/21 12/27/21 Unknown History Tartrate 0.2%] Cyanocobalamin (Vitamin B-12) 500 mg PO QDAY 09/24/21 12/27/21 Unknown History [Vitamin B-12] Fluorometholone [Fml S.o.p] 3.5 gm OP QDAY 09/24/21 12/27/21 Unknown History Insulin Aspart Flexpen 12 units SUB-Q ACHS 09/24/21 12/27/21 Unknown History Omeprazole 20 mg PO QDAY 09/24/21 12/27/21 Unknown History Sertraline [Zoloft] 150 mg PO QDAY 09/24/21 12/27/21 Unknown History Sildenafil Citrate 50 mg PO 1XW PRN MDD 1 TAB 09/24/21 12/27/21 Unknown History buPROPion HCL [Bupropion Xl] 150 mg PO QDAY 09/24/21 12/27/21 Unknown History carvediloL [Coreg] 25 mg PO BID 09/24/21 12/27/21 Unknown History risperiDONE [RisperDAL] 0.5 mg PO QHS 09/24/21 12/27/21 Unknown History Latanoprost 0.005% [Xalatan 0.005%] 1 drop OP QPM 12/27/21 12/27/21 Unknown History Melatonin [Melatonin 3MG TAB] 3 mg PO HS 12/27/21 12/27/21 Unknown History metFORMIN XR [Glucophage XR] 500 mg PO QDAY 12/27/21 12/27/21 Unknown History methazolAMIDE [Methazolamide] 50 mg PO BID 12/27/21 12/27/21 Unknown History Active Meds: Active Medications Amlodipine Besylate (Amlodipine 10 Mg Tab) 10 mg PO DAILY [facility] Last Admin: 01/03/22 09:26 Dose: 10 mg Aspirin (Aspirin 81 Mg Tab Chew) 81 mg PO DAILY [facility] Last Admin: 01/03/22 09:25 Dose: 81 mg Atorvastatin Calcium (Atorvastatin 20 Mg Tab) 20 mg PO QHS [facility] Last Admin: 01/03/22 21:22 Dose: 20 mg Brimonidine Tartrate (Brimonidine 0.15% Ophth Soln) 1 drops OU Q8HR [facility] Last Admin: 01/04/22 06:06 Dose: 1 drops Bupropion HCl (Bupropion Xl 150 Mg Tab) 150 mg PO QDAY [facility] Last Admin: 01/03/22 09:25 Dose: 150 mg Carvedilol (Carvedilol 25 Mg Tab) 25 mg PO BID [facility] Last Admin: 01/03/22 21:22 Dose: 25 mg Cyanocobalamin (Cyanocobalamin (Vit B-12) 1000 Mcg Tab) 500 mcg PO QDAY [facility] Last Admin: 01/03/22 09:24 Dose: 500 mcg Insulin Human Lispro (Insulin Lispro 100 Unit/Ml) 12 unit SUB-Q ACHS [facility] Last Admin: 01/03/22 21:23 Dose: Not Given Latanoprost (Latanoprost 0.005% Ophth Soln 2.5 Ml) 1 drops OU QPM [facility] Last Admin: 01/03/22 17:03 Dose: 1 drops Lisinopril (Lisinopril 40 Mg Tab) 40 mg PO QDAY [facility] Last Admin: 01/03/22 09:25 Dose: 40 mg Melatonin (Melatonin 5 Mg Tab) 5 mg PO QHS [facility] Last Admin: 01/03/22 21:22 Dose: 5 mg Metformin HCl (Metformin Xr 500mg Tab) 500 mg PO QDDIAB [facility] Last Admin: 01/03/22 09:25 Dose: 500 mg Miscellaneous Medication (Fluorometholone [Fml S.O.P. 0.25%]) 3.5 gm OP QDAY [facility] Miscellaneous Medication (Methazolamide [Methazolamide]) 50 mg PO BID [facility] Pantoprazole Sodium (Pantoprazole 20 Mg Tab) 20 mg PO QDAY [facility] Last Admin: 01/03/22 09:25 Dose: 20 mg Risperidone (Risperidone 1 Mg Tab) 0.5 mg PO QHS [facility] Last Admin: 01/03/22: Dose: 0.5 mg Sertraline HCl (Sertraline 50 Mg Tab) 150 mg PO QDAY [facility] Last Admin: 01/03/22 09:25 Dose: 150 mg Results - Results Labs/Vitals: Laboratory Last Values WBC 4.3 K/mm3 (4.5-11.0) L 12/27/21 23:33 RBC 3.33 M/mm3 (3.65-5.03) L 12/27/21 23:33 Hgb 10.1 gm/dl (11.8-15.2) L 12/27/21 23:33 Hct 30.8 % (35.5-45.6) L 12/27/21 23:33 MCV 92 fl (84-94) 12/27/21 23:33 MCH 30 pg (28-32) 12/27/21 23:33 MCHC 33 % (32-34) 12/27/21 23:33 RDW 13.2 % (13.2-15.2) 12/27/21 23:33 Plt Count 185 K/mm3 (140-440) 12/27/21 23:33 Lymph % (Auto) 48.0 % (13.4-35.0) H 12/27/21 23:33 [place] % (Auto) 12.7 % (0.0-7.3) H 12/27/21 23:33 Eos % (Auto) 3.0 % (0.0-4.3) 12/27/21 23:33 Baso % (Auto) 0.6 % (0.0-1.8) 12/27/21 23:33 Lymph # (Auto) 2.1 K/mm3 (1.2-5.4) 12/27/21 23:33 [place] # (Auto) 0.5 K/mm3 (0.0-0.8) 12/27/21 23:33 Eos # (Auto) 0.1 K/mm3 (0.0-0.4) 12/27/21 23:33 Baso # (Auto) 0.0 K/mm3 (0.0-0.1) 12/27/21 23:33 Seg Neutrophils % 35.7 % (40.0-70.0) L 12/27/21 23:33 Seg Neutrophils # 1.5 K/mm3 (1.8-7.7) L 12/27/21 23:33 Sodium 136 mmol/L (137-145) L 12/27/21 23:33 Potassium 3.9 mmol/L (3.6-5.0) 12/27/21 23:33 Chloride 101.9 mmol/L (98-107) 12/27/21 23:33 Carbon Dioxide 20 mmol/L (22-30) L 12/27/21 23:33 Anion Gap 18 mmol/L 12/27/21 23:33 BUN 29 mg/dL (9-20) H 12/27/21 23:33 Creatinine 1.8 mg/dL (0.8-1.3) H 12/27/21 23:33 Estimated GFR 44 ml/min 12/27/21 23:33 BUN/Creatinine Ratio 16 % 12/27/21 23:33 Glucose 119 mg/dL (75-100) H 12/27/21 23:33 POC Glucose 121 mg/dL (70-105) H 01/03/22 19:44 Hemoglobin A1c 6.4 % (4-6) H 12/27/21 23:33 Calcium 9.3 mg/dL (8.4-10.2) 12/27/21 23:33 Total Bilirubin 0.60 mg/dL (0.1-1.2) 12/27/21 23:33 AST 32 units/L (5-40) 12/27/21 23:33 ALT 22 units/L (7-56) 12/27/21 23:33 Alkaline Phosphatase 85 units/L (35-129) 12/27/21 23:33 Total Protein 7.0 g/dL (6.3-8.2) 12/27/21 23:33 Albumin 3.9 g/dL (3.9-5) 12/27/21 23:33 Albumin/Globulin Ratio 1.3 % 12/27/21 23:33 Triglycerides 127 mg/dL (2-149) 12/27/21 23:33 Cholesterol 169 mg/dL (50-199) 12/27/21 23:33 LDL Cholesterol Direct 114 mg/dL (50-130) 12/27/21 23:33 HDL Cholesterol 31 mg/dL (40-59) L 12/27/21 23:33 Cholesterol/HDL Ratio 5.45 % 12/27/21 23:33 TSH 1.330 mlU/mL (0.270-4.200) 12/27/21 23:33 Last Vital Signs Temp 97.9 F 01/03/22 19:15 Pulse 68 01/03/22 21:22 Resp 17 01/03/22 19:15 BP 134/74 01/03/22 21:22 Pulse Ox 99 01/03/22 19:15
[2022-01-04] MEDS: metFORMIN XR 500MG TAB PO SCH (11:33)
[2022-01-04] MEDS: ASPIRIN 81 MG TAB CHEW PO SCH (11:34)
[2022-01-04] MEDS: carvediloL 25 MG TAB PO SCH ×2 (11:35→21:02)
[2022-01-04] MEDS: LISINOPRIL 40 MG TAB PO SCH (11:35)
[2022-01-04] MEDS: buPROPion XL 150 MG TAB PO SCH (11:35)
[2022-01-04] MEDS: SERTRALINE 50 MG TAB PO SCH (11:37)
[2022-01-04] MEDS: PANTOPRAZOLE 20 MG TAB PO SCH (11:38)
[2022-01-04] MEDS: amLODIPine 10 MG TAB PO SCH (11:38)
[2022-01-04] MEDS: CYANOCOBALAMIN (VIT B-12) 1000 MCG TAB PO SCH (11:39)
[2022-01-04] MEDS: LATANOPROST 0.005% OPHTH SOLN 2.5 ML OU SCH (18:06)
[2022-01-04] MEDS: MELATONIN 5 MG TAB PO SCH (21:04)
[2022-01-04] MEDS: risperiDONE 1 MG TAB PO SCH (21:04)
[2022-01-05] MEDS: BRIMONIDINE 0.15% OPHTH SOLN OU SCH ×3 (06:10→21:37)
[2022-01-05] MEDS: INSULIN LISPRO 100 UNIT/ML SUB-Q SCH ×2 (07:30→21:35)
--- NOTE | 2022-01-05 09:02 | Progress Note ---
Subjective Date of service: 01/05/22 Principal diagnosis: Vascular dementia with behavioral disturbance Subjective Comment: The patient was seen today. He says he's doing alright. He is stuttering. The patient says he slept pretty good. When asked about any SI/HI, the patient laughs and says "I want to cut my throat because I don't want to go home. You ladies keep me excited." He then laughs again. 01/04:The patient was seen this morning. He is focused on discharge. He reports sleep and appetite as good. He denies any current suicidal/homicidal ideation and denies hallucinations. No aggressive behavior reported. No changes made today. 01/03:The patient was seen this morning. He reports doing well. He reports sleep and appetite as good. He denies any current suicidal/homicidal ideation and denies hallucinations. No aggressive behavior reported. No changes made today. 01/02: The patient was seen this morning. He reports doing "ok" and ready for breakfast. He reports sleep and appetite as good. No aggressive behavior reported. He denies any current suicidal/homicidal ideation and denies hallucinations. 01/01: The patient was seen this morning. He states he is doing well and ready for breakfast. When asked about suicidality, he states " I want to to kill myself" then chuckled afterwards; he states no plan. The patient is confused and has been non compliant with medications. Per nurse, At the beginning of the shift the patient voiced SI to tech. He became tearful. Then pt presented as trying to laugh it off. He denied a plan but stated he could "find a way". The patient will be placed on line of sight level of observation, and to engage in therapeutic milieu. 12/31:The patient was seen resting in bed. No event reported from last night. 12/30: The patient was seen resting in bed. He states he is fine. He is pleasantly confused. No aggressive behavior reported. 12/29: The patient was seen this morning. He reports doing well. The patient is calm, alert and oriented to self with some confusion. Per nurse, he has been refusing his meds. Some irritability but no aggressive behavior reported. REVIEW OF SYSTEMS Constitutional: Negative for weight loss ENT: Negative for stridor Respiratory: Negative for cough or hemoptysis All other systems reviewed and are negative MENTAL STATUS EXAMINATION General Appearance and Behavior: Age appropriate, wearing appropriate clothes, cooperative, polite with questioning, good eye contact Cooperation: cooperative Psychomotor Behavior: Psychomotor normal Mood: alright Affect and affective range: congruent with stated affect Thought Process: Circumstantial Thought Content: None Speech: stuttering Suicidal Ideation: Denies Homicidal Ideation: Denies Hallucination: Denies Delusions: None elicited Impulse Control: Limited Insight and Judgment: Limited Memory: Intact Attention:attentive Orientation: Alert and oriented Diagnoses: Dementia with Behavioral Disturbance Treatment Plan Patient admitted for inpatient psychiatric evaluation, medication adjustment and close monitoring The patient's behavior, mood, sleep and appetite will be closely monitored. Patient enrolled in individual and group therapeutic sessions and encouraged to attend. Patient provided with a safe and structured environment. Patient's physical health needs will be addressed by the Hospitalist. Hospitalist Consulted Labs including CBC, CMP, Lipid profile and Hemoglobin A1C levels ordered for baseline reference Social Assessment will be completed and the Artist Mannequin Coloring will work with patient and family to ensure a suitable and safe disposition Medication adjustment will be made as clinically indicated Continue home meds Usual Wellness Sabianist/Preservation: - Start Trazodone 50 mg po QHS & 50 mg po QHS PRN between 10 PM & 2 AM for insomnia - Start Melatonin 5 mg po QHS to promote circadian rhythm The patient agreed on the treatment plan, understood the risk, benefit, alternative treatment, potential consequence of no treatment, and gave informed consent. Estimated days: 1 Post hospital care: primary care provider, psychiatric provider Case staffed with Dr. Arreguin Medications and Allergies Allergies Allergy/AdvReac Type Severity Reaction Status Date / Time No Known Allergies Allergy Verified 09/23/21 16:39 Home Medications Medication Instructions Recorded Confirmed Last Taken Type Amlodipine Besylate [Norvasc] 10 mg PO DAILY 09/07/14 12/27/21 09/06/14 History Aspirin [Aspirin BABY CHEW TAB] 81 mg PO DAILY 09/07/14 12/27/21 09/06/14 History 81 mg lisinopriL [Zestril TAB] 40 mg PO QDAY 09/07/14 12/27/21 09/06/14 History AtorvaSTATin [Lipitor] 20 mg PO QHS 09/24/21 12/27/21 Unknown History Brimonidine Tartrate [Brimonidine 1 drop OP Q8HR 09/24/21 12/27/21 Unknown History Tartrate 0.2%] Cyanocobalamin (Vitamin B-12) 500 mg PO QDAY 09/24/21 12/27/21 Unknown History [Vitamin B-12] Fluorometholone [Fml S.o.p] 3.5 gm OP QDAY 09/24/21 12/27/21 Unknown History Insulin Aspart Flexpen 12 units SUB-Q ACHS 09/24/21 12/27/21 Unknown History Omeprazole 20 mg PO QDAY 09/24/21 12/27/21 Unknown History Sertraline [Zoloft] 150 mg PO QDAY 09/24/21 12/27/21 Unknown History Sildenafil Citrate 50 mg PO 1XW PRN MDD 1 TAB 09/24/21 12/27/21 Unknown History buPROPion HCL [Bupropion Xl] 150 mg PO QDAY 09/24/21 12/27/21 Unknown History carvediloL [Coreg] 25 mg PO BID 09/24/21 12/27/21 Unknown History risperiDONE [RisperDAL] 0.5 mg PO QHS 09/24/21 12/27/21 Unknown History Latanoprost 0.005% [Xalatan 0.005%] 1 drop OP QPM 12/27/21 12/27/21 Unknown History Melatonin [Melatonin 3MG TAB] 3 mg PO HS 12/27/21 12/27/21 Unknown History metFORMIN XR [Glucophage XR] 500 mg PO QDAY 12/27/21 12/27/21 Unknown History methazolAMIDE [Methazolamide] 50 mg PO BID 12/27/21 12/27/21 Unknown History Active Meds: Active Medications Amlodipine Besylate (Amlodipine 10 Mg Tab) 10 mg PO DAILY [facility] Last Admin: 01/04/22 11:38 Dose: 10 mg Aspirin (Aspirin 81 Mg Tab Chew) 81 mg PO DAILY [facility] Last Admin: 01/04/22 11:34 Dose: 81 mg Atorvastatin Calcium (Atorvastatin 20 Mg Tab) 20 mg PO QHS [facility] Last Admin: 01/04/22 21:04 Dose: 20 mg Brimonidine Tartrate (Brimonidine 0.15% Oph Soln) 1 drops OU Q8HR [facility] Last Admin: 01/05/22 06:10 Dose: 1 drops Bupropion HCl (Bupropion Xl 150 Mg Tab) 150 mg PO QDAY [facility] Last Admin: 01/04/22 11:35 Dose: 150 mg Carvedilol (Carvedilol 25 Mg Tab) 25 mg PO BID [facility] Last Admin: 01/04/22 21:02 Dose: 25 mg Cyanocobalamin (Cyanocobalamin (Vit B-12) 1000 Mcg Tab) 500 mcg PO QDAY [facility] Last Admin: 01/04/22 11:39 Dose: 500 mcg Insulin Human Lispro (Insulin Lispro 100 Unit/Ml) 12 unit SUB-Q ACHS [facility] Last Admin: 01/04/22 21:07 Dose: Not Given Latanoprost (Latanoprost 0.005% Ophth Soln 2.5 Ml) 1 drops OU QPM [facility] Last Admin: 01/04/22 18:06 Dose: 1 drops Lisinopril (Lisinopril 40 Mg Tab) 40 mg PO QDAY [facility] Last Admin: 01/04/22 11:35 Dose: 40 mg Melatonin (Melatonin 5 Mg Tab) 5 mg PO QHS [facility] Last Admin: 01/04/22 21:04 Dose: 5 mg Metformin HCl (Metformin Xr 500mg Tab) 500 mg PO QDDIAB [facility] Last Admin: 01/04/22 11:33 Dose: Not Given Miscellaneous Medication (Fluorometholone [Fml S.O.P. 0.25%]) 3.5 gm OP QDAY [facility] Miscellaneous Medication (Methazolamide [Methazolamide]) 50 mg PO BID [facility] Pantoprazole Sodium (Pantoprazole 20 Mg Tab) 20 mg PO QDAY [facility] Last Admin: 01/04/22 11:38 Dose: 20 mg Risperidone (Risperidone 1 Mg Tab) 0.5 mg PO QHS [facility] Last Admin: 01/04/22 21:04 Dose: 0.5 mg Sertraline HCl (Sertraline 50 Mg Tab) 150 mg PO QDAY [facility] Last Admin: 01/04/22 11:37 Dose: 150 mg Results - Results Labs/Vitals: Laboratory Last Values WBC 4.3 K/mm3 (4.5-11.0) L 12/27/21 23:33 RBC 3.33 M/mm3 (3.65-5.03) L 12/27/21 23:33 Hgb 10.1 gm/dl (11.8-15.2) L 12/27/21 23:33 Hct 30.8 % (35.5-45.6) L 12/27/21 23:33 MCV 92 fl (84-94) 12/27/21 23:33 MCH 30 pg (28-32) 12/27/21 23:33 MCHC 33 % (32-34) 12/27/21 23:33 RDW 13.2 % (13.2-15.2) 12/27/21 23:33 Plt Count 185 K/mm3 (140-440) 12/27/21 23:33 Lymph % (Auto) 48.0 % (13.4-35.0) H 12/27/21 23:33 [place] % (Auto) 12.7 % (0.0-7.3) H 12/27/21 23: Eos % (Auto) 3.0 % (0.0-4.3) 12/27/21 23: Baso % (Auto) 0.6 % (0.0-1.8) 12/27/21 23: Lymph # (Auto) 2.1 K/mm3 (1.2-5.4) 12/27/21 23:33 [place] # (Auto) 0.5 K/mm3 (0.0-0.8) 12/27/21 23:33 Eos # (Auto) 0.1 K/mm3 (0.0-0.4) 12/27/21 23: Baso # (Auto) 0.0 K/mm3 (0.0-0.1) 12/27/21 23: Seg Neutrophils % 35.7 % (40.0-70.0) L 12/27/21 23:33 Seg Neutrophils # 1.5 K/mm3 (1.8-7.7) L 12/27/21 23:33 Sodium 136 mmol/L (137-145) L 12/27/21 23:33 Potassium 3.9 mmol/L (3.6-5.0) 12/27/21 23:33 Chloride 101.9 mmol/L (98-107) 12/27/21 23:33 Carbon Dioxide 20 mmol/L (22-30) L 12/27/21 23:33 Anion Gap 18 mmol/L 12/27/21 23:33 BUN 29 mg/dL (9-20) H 12/27/21 23:33 Creatinine 1.8 mg/dL (0.8-1.3) H 12/27/21 23:33 Estimated GFR 44 ml/min 12/27/21 23:33 BUN/Creatinine Ratio 16 % 12/27/21 23:33 Glucose 119 mg/dL (75-100) H 12/27/21 23:33 POC Glucose 112 mg/dL (70-105) H 01/05/22 06:20 Hemoglobin A1c 6.4 % (4-6) H 12/27/21 23:33 Calcium 9.3 mg/dL (8.4-10.2) 12/27/21 23:33 Total Bilirubin 0.60 mg/dL (0.1-1.2) 12/27/21 23:33 AST 32 units/L (5-40) 12/27/21 23:33 ALT 22 units/L (7-56) 12/27/21 23:33 Alkaline Phosphatase 85 units/L (35-129) 12/27/21 23:33 Total Protein 7.0 g/dL (6.3-8.2) 12/27/21 23:33 Albumin 3.9 g/dL (3.9-5) 12/27/21 23:33 Albumin/Globulin Ratio 1.3 % 12/27/21 23:33 Triglycerides 127 mg/dL (2-149) 12/27/21 23:33 Cholesterol 169 mg/dL (50-199) 12/27/21 23:33 LDL Cholesterol Direct 114 mg/dL (50-130) 12/27/21 23:33 HDL Cholesterol 31 mg/dL (40-59) L 12/27/21 23:33 Cholesterol/HDL Ratio 5.45 % 12/27/21 23:33 TSH 1.330 mlU/mL (0.270-4.200) 12/27/21 23:33 Last Vital Signs Temp 98.3 F 01/05/22 07:44 Pulse 69 01/05/22 07:44 Resp 16 01/05/22 07:44 BP 140/68 01/05/22 07:44 Pulse Ox 99 01/05/22 07:44
--- NOTE | 2022-01-05 09:21 | Progress Note ---
Assessment and Plan Assessment and Plan - Patient Problems (1) Vascular dementia with behavioral disturbance Current Visit: Yes Status: Acute Plan to address problem: Verbal prompting, verbal redirection, benzodiazepine therapy as clinically indicated. (2) Cerebral atherosclerosis Current Visit: Yes Status: Acute Plan to address problem: Antiplatelet therapy as clinically indicated, risk factor reduction. (3) Hypertension Current Visit: Yes Status: Acute Qualifiers: Hypertension type: primary hypertension Qualified Code(s): I10 - Essential (primary) hypertension Plan to address problem: Monitor blood pressure every shift, continue medical management. (4) Hyperlipidemia Current Visit: Yes Status: Acute Qualifiers: Hyperlipidemia type: mixed hyperlipidemia Qualified Code(s): E78.2 - Mixed hyperlipidemia Plan to address problem: Statin therapy, low-cholesterol diet (5) Diabetes Current Visit: Yes Status: Acute Plan to address problem: Consistent carbohydrate diet, Accu-Chek, continue oral antihyperglycemic ther apy, hypoglycemia protocol. (6) Advance care planning Current Visit: Yes Status: Acute Plan to address problem: Disease education done, care plan discussed, diagnoses discussed, prognosis discussed, patient is full code. Patient acknowledges understanding and agreement with care plan, +30 minutes. (7) Preventative health care Current Visit: Yes Status: Acute Plan to address problem: Patient counseled regarding risk factor reduction, home safety measures, outpatient follow-up with primary care physician for all age and risk factor appropriate screening test, +30 minutes. Subjective Date of service: 01/04/22 Principal diagnosis: Vascular dementia with behavioral disturbance Interval history: History Interval history: 86 YO Male with Vascular Dementia with Behavioral Disturbance, Cerebral Atherosclerosis, HTN, HLD, DM, GERD, CKD, MARGARETH admitted to [facility] for psychiatric stabilization. Consult placed by Dr. Thompson for medical management. Patient seen and evaluated in the recreation room. Patient resting. Patient has diminished cognition but appears to be at baseline level of cognition and function. 01/02/22 Resting comfortably 01/04/2022 Resting comfortably Objective - Constitutional Vitals: Vital Signs - 12hr 01/05/22 07:44 Temperature 98.3 F Pulse Rate 69 Respiratory 16 Rate Blood Pressure 140/68 O2 Sat by Pulse 99 Oximetry General appearance: Present: no acute distress, well-nourished - EENT Eyes: PERRL, EOM intact ENT: hearing intact, clear oral mucosa Ears: bilateral: normal - Neck Neck: supple, normal ROM - Respiratory Respiratory effort: normal Respiratory: bilateral: CTA - Breasts Breasts: normal - Cardiovascular Heart rate: 78 Rhythm: regular Heart Sounds: Present: S1 & S2. Absent: gallop, rub Extremities: pulses intact, No edema, normal color, Full ROM - Gastrointestinal General gastrointestinal: Present: soft, non-tender, non-distended, normal bowel sounds - Genitourinary Male genitourinary: normal - Integumentary Integumentary: clear, warm, dry - Musculoskeletal Musculoskeletal: 1, strength equal bilaterally - Neurologic Neurologic: moves all extremities - Psychiatric Psychiatric: memory intact, appropriate mood/affect, intact judgment & insight - Labs CBC & Chem 7: 12/27/21 23:33 12/27/21 23:33 Labs: Abnormal lab results 01/05/22 Range/Units 06:20 POC Glucose 112 H (70-105) mg/dL
[2022-01-05] MEDS: buPROPion XL 150 MG TAB PO SCH (09:50)
[2022-01-05] MEDS: ASPIRIN 81 MG TAB CHEW PO SCH (09:50)
[2022-01-05] MEDS: PANTOPRAZOLE 20 MG TAB PO SCH (09:51)
[2022-01-05] MEDS: SERTRALINE 50 MG TAB PO SCH (09:51)
[2022-01-05] MEDS: amLODIPine 10 MG TAB PO SCH (09:52)
[2022-01-05] MEDS: CYANOCOBALAMIN (VIT B-12) 1000 MCG TAB PO SCH (09:53)
[2022-01-05] MEDS: metFORMIN XR 500MG TAB PO SCH (09:56)
[2022-01-05] MEDS: carvediloL 25 MG TAB PO SCH ×2 (09:56→21:36)
[2022-01-05] MEDS: LISINOPRIL 40 MG TAB PO SCH (09:58)
[2022-01-05] MEDS: risperiDONE 1 MG TAB PO SCH (21:38)
[2022-01-05] MEDS: MELATONIN 5 MG TAB PO SCH (21:38)
[2022-01-06] MEDS: BRIMONIDINE 0.15% OPHTH SOLN OU SCH ×3 (06:00→21:08)
[2022-01-06] MEDS: INSULIN LISPRO 100 UNIT/ML SUB-Q SCH ×6 (07:30→21:09)
[2022-01-06] MEDS: metFORMIN XR 500MG TAB PO SCH (08:00)
--- NOTE | 2022-01-06 09:07 | Progress Note ---
Subjective Date of service: 01/06/22 Principal diagnosis: Vascular dementia with behavioral disturbance Subjective Comment: The patient was seen today. He is sleeping, but easily arouses. He says he's doing alright. The patient denies SI/HI or hallucinations. He says he slept good. 01/05 The patient was seen today. He says he's doing alright. He is stuttering. The patient says he slept pretty good. When asked about any SI/HI, the patient laughs and says "I want to cut my throat because I don't want to go home. You ladies keep me excited." He then laughs again. 01/04:The patient was seen this morning. He is focused on discharge. He reports sleep and appetite as good. He denies any current suicidal/homicidal ideation and denies hallucinations. No aggressive behavior reported. No changes made today. 01/03:The patient was seen this morning. He reports doing well. He reports sleep and appetite as good. He denies any current suicidal/homicidal ideation and denies hallucinations. No aggressive behavior reported. No changes made today. 01/02: The patient was seen this morning. He reports doing "ok" and ready for breakfast. He reports sleep and appetite as good. No aggressive behavior reported. He denies any current suicidal/homicidal ideation and denies hallucinations. 01/01: The patient was seen this morning. He states he is doing well and ready for breakfast. When asked about suicidality, he states " I want to to kill myself" then chuckled afterwards; he states no plan. The patient is confused and has been non compliant with medications. Per nurse, At the beginning of the shift the patient voiced SI to tech. He became tearful. Then pt presented as trying to laugh it off. He denied a plan but stated he could "find a way". The patient will be placed on line of sight level of observation, and to engage in therapeutic milieu. 12/31:The patient was seen resting in bed. No event reported from last night. 12/30: The patient was seen resting in bed. He states he is fine. He is pleasantly confused. No aggressive behavior reported. 12/29: The patient was seen this morning. He reports doing well. The patient is calm, alert and oriented to self with some confusion. Per nurse, he has been refusing his meds. Some irritability but no aggressive behavior reported. REVIEW OF SYSTEMS Constitutional: Negative for weight loss ENT: Negative for stridor Respiratory: Negative for cough or hemoptysis All other systems reviewed and are negative MENTAL STATUS EXAMINATION General Appearance and Behavior: Age appropriate, wearing appropriate clothes, cooperative, polite with questioning, good eye contact Cooperation: cooperative Psychomotor Behavior: Psychomotor normal Mood: alright Affect and affective range: congruent with stated affect Thought Process: Circumstantial Thought Content: None Speech: stuttering Suicidal Ideation: Denies Homicidal Ideation: Denies Hallucination: Denies Delusions: None elicited Impulse Control: Limited Insight and Judgment: Limited Memory: Intact Attention:attentive Orientation: Alert and oriented Diagnoses: Dementia with Behavioral Disturbance Treatment Plan Patient admitted for inpatient psychiatric evaluation, medication adjustment and close monitoring The patient's behavior, mood, sleep and appetite will be closely monitored. Patient enrolled in individual and group therapeutic sessions and encouraged to attend. Patient provided with a safe and structured environment. Patient's physical health needs will be addressed by the Hospitalist. Hospitalist Consulted Labs including CBC, CMP, Lipid profile and Hemoglobin A1C levels ordered for baseline reference Social Assessment will be completed and the Map And Chart Mounter will work with patient and family to ensure a suitable and safe disposition Medication adjustment will be made as clinically indicated Continue home meds Usual Wellness Catholic/Preservation: - Start Trazodone 50 mg po QHS & 50 mg po QHS PRN between 10 PM & 2 AM for insomnia - Start Melatonin 5 mg po QHS to promote circadian rhythm The patient agreed on the treatment plan, understood the risk, benefit, alternative treatment, potential consequence of no treatment, and gave informed consent. Estimated days: 1 Post hospital care: primary care provider, psychiatric provider Case staffed with Dr. Arreguin Medications and Allergies Allergies Allergy/AdvReac Type Severity Reaction Status Date / Time No Known Allergies Allergy Verified 09/23/21 16:39 Home Medications Medication Instructions Recorded Confirmed Last Taken Type Amlodipine Besylate [Norvasc] 10 mg PO DAILY 09/07/14 12/27/21 09/06/14 History Aspirin [Aspirin BABY CHEW TAB] 81 mg PO DAILY 09/07/14 12/27/21 09/06/14 History 81 mg lisinopriL [Zestril TAB] 40 mg PO QDAY 09/07/14 12/27/2109/06/15 History AtorvaSTATin [Lipitor] 20 mg PO QHS 09/24/21 12/27/21 Unknown History Brimonidine Tartrate [Brimonidine 1 drop OP Q8HR 09/24/21 12/27/21 Unknown History Tartrate 0.2%] Cyanocobalamin (Vitamin B-12) 500 mg PO QDAY 09/24/21 12/27/21 Unknown History [Vitamin B-12] Fluorometholone [Fml S.o.p] 3.5 gm OP QDAY 09/24/21 12/27/21 Unknown History Insulin Aspart Flexpen 12 units SUB-Q ACHS 09/24/21 12/27/21 Unknown History Omeprazole 20 mg PO QDAY 09/24/21 12/27/21 Unknown History Sertraline [Zoloft] 150 mg PO QDAY 09/24/21 12/27/21 Unknown History Sildenafil Citrate 50 mg PO 1XW PRN MDD 1 TAB 09/24/21 12/27/21 Unknown History buPROPion HCL [Bupropion Xl] 150 mg PO QDAY 09/24/21 12/27/21 Unknown History carvediloL [Coreg] 25 mg PO BID 09/24/21 12/27/21 Unknown History risperiDONE [RisperDAL] 0.5 mg PO QHS 09/24/21 12/27/21 Unknown History Latanoprost 0.005% [Xalatan 0.005%] 1 drop OP QPM 12/27/21 12/27/21 Unknown History Melatonin [Melatonin 3MG TAB] 3 mg PO HS 12/27/21 12/27/21 Unknown History metFORMIN XR [Glucophage XR] 500 mg PO QDAY 12/27/21 12/27/21 Unknown History methazolAMIDE [Methazolamide] 50 mg PO BID 12/27/21 12/27/21 Unknown History Active Meds: Active Medications Amlodipine Besylate (Amlodipine 10 Mg Tab) 10 mg PO DAILY [facility] Last Admin: 01/05/22 09:52 Dose: 10 mg Aspirin (Aspirin 81 Mg Tab Chew) 81 mg PO DAILY [facility] Last Admin: 01/05/22 09:50 Dose: 81 mg Atorvastatin Calcium (Atorvastatin 20 Mg Tab) 20 mg PO QHS [facility] Last Admin: 01/05/22 21:38 Dose: 20 mg Brimonidine Tartrate (Brimonidine 0.15% Ophth Soln) 1 drops OU Q8HR [facility] Last Admin: 01/06/22 06:00 Dose: 1 drops Bupropion HCl (Bupropion Xl 150 Mg Tab) 150 mg PO QDAY [facility] Last Admin: 01/05/22 09:50 Dose: 150 mg Carvedilol (Carvedilol 25 Mg Tab) 25 mg PO BID [facility] Last Admin: 01/05/22 21:36 Dose: 25 mg Cyanocobalamin (Cyanocobalamin (Vit B-12) 1000 Mcg Tab) 500 mcg PO QDAY [facility] Last Admin: 01/05/22 09:53 Dose: 500 mcg Insulin Human Lispro (Insulin Lispro 100 Unit/Ml) 12 unit SUB-Q ACHS [facility] Last Admin: 01/05/22 21:35 Dose: Not Given Latanoprost (Latanoprost 0.005% Ophth Soln 2.5 Ml) 1 drops OU QPM [facility] Last Admin: 01/04/22 18:06 Dose: 1 drops Lisinopril (Lisinopril 40 Mg Tab) 40 mg PO QDAY [facility] Last Admin: 01/05/22 09:58 Dose: 40 mg Melatonin (Melatonin 5 Mg Tab) 5 mg PO QHS [facility] Last Admin: 01/05/22 21:38 Dose: 5 mg Metformin HCl (Metformin Xr 500mg Tab) 500 mg PO QDDIAB [facility] Last Admin: 01/05/22 09:56 Dose: 500 mg Miscellaneous Medication (Fluorometholone [Fml S.O.P. 0.25%]) 3.5 gm OP QDAY [facility] Miscellaneous Medication (Methazolamide [Methazolamide]) 50 mg PO BID [facility] Pantoprazole Sodium (Pantoprazole 20 Mg Tab) 20 mg PO QDAY [facility] Last Admin: 01/05/22 09:51 Dose: 20 mg Risperidone (Risperidone 1 Mg Tab) 0.5 mg PO QHS [facility] Last Admin: 01/05/22 21:38 Dose: 0.5 mg Sertraline HCl (Sertraline 50 Mg Tab) 150 mg PO QDAY [facility] Last Admin: 01/05/22 09:51 Dose: 150 mg Results - Results Labs/Vitals: Laboratory Last Values WBC 4.3 K/mm3 (4.5-11.0) L 12/27/21 23:33 RBC 3.33 M/mm3 (3.65-5.03) L 12/27/21 23: Hgb 10.1 gm/dl (11.8-15.2) L 12/27/21 23: Hct 30.8 % (35.5-45.6) L 12/27/21 23: MCV 92 fl (84-94) 12/27/21 23: MCH 30 pg (28-32) 12/27/21 23: MCHC 33 % (32-34) 12/27/21 23: RDW 13.2 % (13.2-15.2) 12/27/21 23: Plt Count 185 K/mm3 (140-440) 12/27/21 23: Lymph % (Auto) 48.0 % (13.4-35.0) H 12/27/21: [place] % (Auto) 12.7 % (0.0-7.3) H 12/27/21: Eos % (Auto) 3.0 % (0.0-4.3) 12/27/21 23: Baso % (Auto) 0.6 % (0.0-1.8) 12/27/21: Lymph # (Auto) 2.1 K/mm3 (1.2-5.4) 12/27/21 23: [place] # (Auto) 0.5 K/mm3 (0.0-0.8) 12/27/21 23: Eos # (Auto) 0.1 K/mm3 (0.0-0.4) 12/27/21 23: Baso # (Auto) 0.0 K/mm3 (0.0-0.1) 12/27/21 23: Seg Neutrophils % 35.7 % (40.0-70.0) L 12/27/21 23: Seg Neutrophils # 1.5 K/mm3 (1.8-7.7) L 12/27/21 23:33 Sodium 136 mmol/L (137-145) L 12/27/21 23:33 Potassium 3.9 mmol/L (3.6-5.0) 12/27/21 23: Chloride 101.9 mmol/L (98-107) 12/27/21 23:33 Carbon Dioxide 20 mmol/L (22-30) L 12/27/21 23:33 Anion Gap 18 mmol/L 12/27/21 23:33 BUN 29 mg/dL (9-20) H 12/27/21 23:33 Creatinine 1.8 mg/dL (0.8-1.3) H 12/27/21 23:33 Estimated GFR 44 ml/min 12/27/21 23:33 BUN/Creatinine Ratio 16 % 12/27/21 23:33 Glucose 119 mg/dL (75-100) H 12/27/21 23:33 POC Glucose 105 mg/dL (70-105) 01/06/22 07:10 Hemoglobin A1c 6.4 % (4-6) H 12/27/21 23:33 Calcium 9.3 mg/dL (8.4-10.2) 12/27/21 23:33 Total Bilirubin 0.60 mg/dL (0.1-1.2) 12/27/21 23:33 AST 32 units/L (5-40) 12/27/21 23:33 ALT 22 units/L (7-56) 12/27/21 23:33 Alkaline Phosphatase 85 units/L (35-129) 12/27/21 23:33 Total Protein 7.0 g/dL (6.3-8.2) 12/27/21 23:33 Albumin 3.9 g/dL (3.9-5) 12/27/21 23:33 Albumin/Globulin Ratio 1.3 % 12/27/21 23:33 Triglycerides 127 mg/dL (2-149) 12/27/21 23:33 Cholesterol 169 mg/dL (50-199) 12/27/21 23:33 LDL Cholesterol Direct 114 mg/dL (50-130) 12/27/21 23:33 HDL Cholesterol 31 mg/dL (40-59) L 12/27/21 23:33 Cholesterol/HDL Ratio 5.45 % 12/27/21 23:33 TSH 1.330 mlU/mL (0.270-4.200) 12/27/21 23:33 Last Vital Signs Temp 98.3 F 01/05/22 07:44 Pulse 68 01/05/22 21:36 Resp 16 01/05/22 07:44 BP 137/65 01/05/22 21:36 Pulse Ox 99 01/05/22 07:44
[2022-01-06] MEDS: ASPIRIN 81 MG TAB CHEW PO SCH (10:00)
[2022-01-06] MEDS: LISINOPRIL 40 MG TAB PO SCH (10:00)
[2022-01-06] MEDS: PANTOPRAZOLE 20 MG TAB PO SCH (10:00)
[2022-01-06] MEDS: amLODIPine 10 MG TAB PO SCH (10:00)
[2022-01-06] MEDS: carvediloL 25 MG TAB PO SCH ×2 (10:00→21:08)
[2022-01-06] MEDS: SERTRALINE 50 MG TAB PO SCH (10:00)
[2022-01-06] MEDS: buPROPion XL 150 MG TAB PO SCH (10:00)
[2022-01-06] MEDS: CYANOCOBALAMIN (VIT B-12) 1000 MCG TAB PO SCH (12:10)
[2022-01-06] MEDS: LATANOPROST 0.005% OPHTH SOLN 2.5 ML OU SCH ×2 (18:53→20:55)
[2022-01-06] MEDS: MELATONIN 5 MG TAB PO SCH (21:09)
[2022-01-06] MEDS: risperiDONE 1 MG TAB PO SCH (21:09)
[2022-01-07] MEDS: BRIMONIDINE 0.15% OPHTH SOLN OU SCH ×3 (06:06→21:36)
[2022-01-07] MEDS: INSULIN LISPRO 100 UNIT/ML SUB-Q SCH ×4 (07:30→22:33)
[2022-01-07] MEDS: metFORMIN XR 500MG TAB PO SCH (08:00)
--- NOTE | 2022-01-07 09:38 | Progress Note ---
Subjective Date of service: 01/07/22 Principal diagnosis: Vascular dementia with behavioral disturbance Subjective Comment: The patient was seen today. He is sleeping, but arouses. He says he feels alright. He denies SI/HI or hallucinations of any kind. The patient is awaiting placement. 01/06 The patient was seen today. He is sleeping, but easily arouses. He says he's doing alright. The patient denies SI/HI or hallucinations. He says he slept good. 01/05 The patient was seen today. He says he's doing alright. He is stuttering. The patient says he slept pretty good. When asked about any SI/HI, the patient laughs and says "I want to cut my throat because I don't want to go home. You ladies keep me excited." He then laughs again. 01/04:The patient was seen this morning. He is focused on discharge. He reports sleep and appetite as good. He denies any current suicidal/homicidal ideation and denies hallucinations. No aggressive behavior reported. No changes made today. 01/03:The patient was seen this morning. He reports doing well. He reports sleep and appetite as good. He denies any current suicidal/homicidal ideation and denies hallucinations. No aggressive behavior reported. No changes made today. 01/02: The patient was seen this morning. He reports doing "ok" and ready for breakfast. He reports sleep and appetite as good. No aggressive behavior reported. He denies any current suicidal/homicidal ideation and denies hallucinations. 01/01: The patient was seen this morning. He states he is doing well and ready for breakfast. When asked about suicidality, he states " I want to to kill myself" then chuckled afterwards; he states no plan. The patient is confused and has been non compliant with medications. Per nurse, At the beginning of the shift the patient voiced SI to tech. He became tearful. Then pt presented as trying to laugh it off. He denied a plan but stated he could "find a way". The patient will be placed on line of sight level of observation, and to engage in therapeutic milieu. 12/31:The patient was seen resting in bed. No event reported from last night. 12/30: The patient was seen resting in bed. He states he is fine. He is pleasantly confused. No aggressive behavior reported. 12/29: The patient was seen this morning. He reports doing well. The patient is calm, alert and oriented to self with some confusion. Per nurse, he has been refusing his meds. Some irritability but no aggressive behavior reported. REVIEW OF SYSTEMS Constitutional: Negative for weight loss ENT: Negative for stridor Respiratory: Negative for cough or hemoptysis All other systems reviewed and are negative MENTAL STATUS EXAMINATION General Appearance and Behavior: Age appropriate, wearing appropriate clothes, cooperative, polite with questioning, good eye contact Cooperation: cooperative Psychomotor Behavior: Psychomotor normal Mood: alright Affect and affective range: congruent with stated affect Thought Process: Circumstantial Thought Content: None Speech: stuttering Suicidal Ideation: Denies Homicidal Ideation: Denies Hallucination: Denies Delusions: None elicited Impulse Control: Limited Insight and Judgment: Limited Memory: Intact Attention:attentive Orientation: Alert and oriented Diagnoses: Dementia with Behavioral Disturbance Treatment Plan Patient admitted for inpatient psychiatric evaluation, medication adjustment and close monitoring The patient's behavior, mood, sleep and appetite will be closely monitored. Patient enrolled in individual and group therapeutic sessions and encouraged to attend. Patient provided with a safe and structured environment. Patient's physical health needs will be addressed by the Hospitalist. Hospitalist Consulted Labs including CBC, CMP, Lipid profile and Hemoglobin A1C levels ordered for baseline reference Social Assessment will be completed and the Aircraft Engine Installer will work with patient and family to ensure a suitable and safe disposition Medication adjustment will be made as clinically indicated Continue home meds Usual Wellness [facility]odoxy/Preservation: - Start Trazodone 50 mg po QHS & 50 mg po QHS PRN between 10 PM & 2 AM for insomnia - Start Melatonin 5 mg po QHS to promote circadian rhythm The patient agreed on the treatment plan, understood the risk, benefit, alternative treatment, potential consequence of no treatment, and gave informed consent. Estimated days: 1 Post hospital care: primary care provider, psychiatric provider Case staffed with Dr. Arreguin Medications and Allergies Allergies Allergy/AdvReac Type Severity Reaction Status Date / Time No Known Allergies Allergy Verified 09/23/21 16:39 Home Medications Medication Instructions Recorded Confirmed Last Taken Type Amlodipine Besylate [Norvasc] 10 mg PO DAILY 09/07/14 12/27/21 09/06/14 History Aspirin [Aspirin BABY CHEW TAB] 81 mg PO DAILY 09/07/14 12/27/21 09/06/14 History 81 mg lisinopriL [Zestril TAB] 40 mg PO QDAY 09/07/14 12/27/21 09/06/14 History AtorvaSTATin [Lipitor] 20 mg PO QHS 09/24/21 12/27/21 Unknown History Brimonidine Tartrate [Brimonidine 1 drop OP Q8HR 09/24/21 12/27/21 Unknown History Tartrate 0.2%] Cyanocobalamin (Vitamin B-12) 500 mg PO QDAY 09/24/21 12/27/21 Unknown History [Vitamin B-12] Fluorometholone [Fml S.o.p] 3.5 gm OP QDAY 09/24/21 12/27/21 Unknown History Insulin Aspart Flexpen 12 units SUB-Q ACHS 09/24/21 12/27/21 Unknown History Omeprazole 20 mg PO QDAY 09/24/21 12/27/21 Unknown History Sertraline [Zoloft] 150 mg PO QDAY 09/24/21 12/27/21 Unknown History Sildenafil Citrate 50 mg PO 1XW PRN MDD 1 TAB 09/24/21 12/27/21 Unknown History buPROPion HCL [Bupropion Xl] 150 mg PO QDAY 09/24/21 12/27/21 Unknown History carvediloL [Coreg] 25 mg PO BID 09/24/21 12/27/21 Unknown History risperiDONE [RisperDAL] 0.5 mg PO QHS 09/24/21 12/27/21 Unknown History Latanoprost 0.005% [Xalatan 0.005%] 1 drop OP QPM 12/27/21 12/27/21 Unknown History Melatonin [Melatonin 3MG TAB] 3 mg PO HS 12/27/21 12/27/21 Unknown History metFORMIN XR [Glucophage XR] 500 mg PO QDAY 12/27/21 12/27/21 Unknown History methazolAMIDE [Methazolamide] 50 mg PO BID 12/27/21 12/27/21 Unknown History Active Meds: Active Medications Amlodipine Besylate (Amlodipine 10 Mg Tab) 10 mg PO DAILY [facility] Last Admin: 01/06/22 10:00 Dose: Not Given Aspirin (Aspirin 81 Mg Tab Chew) 81 mg PO DAILY [facility] Last Admin: 01/06/22 10:00 Dose: Not Given Atorvastatin Calcium (Atorvastatin 20 Mg Tab) 20 mg PO QHS [facility] Last Admin: 01/06/22 21:09 Dose: 20 mg Brimonidine Tartrate (Brimonidine 0.15% Ophth Soln) 1 drops OU Q8HR [facility] Last Admin: 01/07/22 06:06 Dose: 1 drops Bupropion HCl (Bupropion Xl 150 Mg Tab) 150 mg PO QDAY [facility] Last Admin: 01/06/22 10:00 Dose: Not Given Carvedilol (Carvedilol 25 Mg Tab) 25 mg PO BID [facility] Last Admin: 01/06/22 21:08 Dose: 25 mg Cyanocobalamin (Cyanocobalamin (Vit B-12) 1000 Mcg Tab) 500 mcg PO QDAY [facility] Last Admin: 01/06/22 12:10 Dose: Not Given Insulin Human Lispro (Insulin Lispro 100 Unit/Ml) 12 unit SUB-Q ACHS [facility] Last Admin: 01/06/22 21:09 Dose: Not Given Latanoprost (Latanoprost 0.005% Ophth Soln 2.5 Ml) 1 drops OU QPM [facility] Last Admin: 01/06/22 20:55 Dose: Not Given Lisinopril (Lisinopril 40 Mg Tab) 40 mg PO QDAY [facility] Last Admin: 01/06/22 10:00 Dose: Not Given Melatonin (Melatonin 5 Mg Tab) 5 mg PO QHS [facility] Last Admin: 01/06/22 21:09 Dose: 5 mg Metformin HCl (Metformin Xr 500mg Tab) 500 mg PO QDDIAB [facility] Last Admin: 01/06/22 08:00 Dose: Not Given Miscellaneous Medication (Fluorometholone [Fml S.O.P. 0.25%]) 3.5 gm OP QDAY [facility] Miscellaneous Medication (Methazolamide [Methazolamide]) 50 mg PO BID [facility] Pantoprazole Sodium (Pantoprazole 20 Mg Tab) 20 mg PO QDAY [facility] Last Admin: 01/06/22 10:00 Dose: Not Given Risperidone (Risperidone 1 Mg Tab) 0.5 mg PO QHS [facility] Last Admin: 01/06/22 21:09 Dose: 0.5 mg Sertraline HCl (Sertraline 50 Mg Tab) 150 mg PO QDAY [facility] Last Admin: 01/06/22 10:00 Dose: Not Given Results - Results Labs/Vitals: Laboratory Last Values WBC 4.3 K/mm3 (4.5-11.0) L 12/27/21 23: RBC 3.33 M/mm3 (3.65-5.03) L 12/27/21 23: Hgb 10.1 gm/dl (11.8-15.2) L 12/27/21 23: Hct 30.8 % (35.5-45.6) L 12/27/21 23: MCV 92 fl (84-94) 12/27/21 23: MCH 30 pg (28-32) 12/27/21 23: MCHC 33 % (32-34) 12/27/21: RDW 13.2 % (13.2-15.2) 12/27/21: Plt Count 185 K/mm3 (140-440) 12/27/21 23: Lymph % (Auto) 48.0 % (13.4-35.0) H 12/27/21 23: [place] % (Auto) 12.7 % (0.0-7.3) H 12/27/21 23:33 Eos % (Auto) 3.0 % (0.0-4.3) 12/27/21: Baso % (Auto) 0.6 % (0.0-1.8) 12/27/21: Lymph # (Auto) 2.1 K/mm3 (1.2-5.4) 12/27/21: [place] # (Auto) 0.5 K/mm3 (0.0-0.8) 12/27/21 23: Eos # (Auto) 0.1 K/mm3 (0.0-0.4) 12/27/21 23: Baso # (Auto) 0.0 K/mm3 (0.0-0.1) 12/27/21 23: Seg Neutrophils % 35.7 % (40.0-70.0) L 12/27/21 23: Seg Neutrophils # 1.5 K/mm3 (1.8-7.7) L 12/27/21 23: Sodium 136 mmol/L (137-145) L 12/27/21 23:33 Potassium 3.9 mmol/L (3.6-5.0) 12/27/21 23:33 Chloride 101.9 mmol/L (98-107) 12/27/21 23:33 Carbon Dioxide 20 mmol/L (22-30) L 12/27/21 23:33 Anion Gap 18 mmol/L 12/27/21 23:33 BUN 29 mg/dL (9-20) H 12/27/21 23:33 Creatinine 1.8 mg/dL (0.8-1.3) H 12/27/21 23:33 Estimated GFR 44 ml/min 12/27/21 23:33 BUN/Creatinine Ratio 16 % 12/27/21 23:33 Glucose 119 mg/dL (75-100) H 12/27/21 23:33 POC Glucose 134 mg/dL (70-105) H 01/06/22 12:07 Hemoglobin A1c 6.4 % (4-6) H 12/27/21 23:33 Calcium 9.3 mg/dL (8.4-10.2) 12/27/21 23:33 Total Bilirubin 0.60 mg/dL (0.1-1.2) 12/27/21 23:33 AST 32 units/L (5-40) 12/27/21 23:33 ALT 22 units/L (7-56) 12/27/21 23:33 Alkaline Phosphatase 85 units/L (35-129) 12/27/21 23:33 Total Protein 7.0 g/dL (6.3-8.2) 12/27/21 23:33 Albumin 3.9 g/dL (3.9-5) 12/27/21 23:33 Albumin/Globulin Ratio 1.3 % 12/27/21 23:33 Triglycerides 127 mg/dL (2-149) 12/27/21 23:33 Cholesterol 169 mg/dL (50-199) 12/27/21 23:33 LDL Cholesterol Direct 114 mg/dL (50-130) 12/27/21 23:33 HDL Cholesterol 31 mg/dL (40-59) L 12/27/21 23:33 Cholesterol/HDL Ratio 5.45 % 12/27/21 23:33 TSH 1.330 mlU/mL (0.270-4.200) 12/27/21 23:33 Last Vital Signs Temp 98.4 F 01/06/22 19:38 Pulse 63 01/06/22 21:08 Resp 17 01/06/22 19:38 BP 146/64 01/06/22 21:08 Pulse Ox 99 01/06/22 19:38
[2022-01-07] MEDS: ASPIRIN 81 MG TAB CHEW PO SCH (10:00)
[2022-01-07] MEDS: carvediloL 25 MG TAB PO SCH ×2 (10:00→21:37)
[2022-01-07] MEDS: amLODIPine 10 MG TAB PO SCH (10:00)
[2022-01-07] MEDS: CYANOCOBALAMIN (VIT B-12) 1000 MCG TAB PO SCH (10:00)
[2022-01-07] MEDS: LISINOPRIL 40 MG TAB PO SCH (10:00)
[2022-01-07] MEDS: SERTRALINE 50 MG TAB PO SCH (10:00)
[2022-01-07] MEDS: PANTOPRAZOLE 20 MG TAB PO SCH (10:00)
[2022-01-07] MEDS: buPROPion XL 150 MG TAB PO SCH (10:00)
[2022-01-07] MEDS: LATANOPROST 0.005% OPHTH SOLN 2.5 ML OU SCH (17:30)
[2022-01-07] MEDS: MELATONIN 5 MG TAB PO SCH (21:38)
[2022-01-07] MEDS: risperiDONE 1 MG TAB PO SCH (21:39)
[2022-01-08] MEDS: BRIMONIDINE 0.15% OPHTH SOLN OU SCH ×3 (05:21→21:12)
[2022-01-08] MEDS: INSULIN LISPRO 100 UNIT/ML SUB-Q SCH ×5 (07:30→21:24)
--- NOTE | 2022-01-08 09:19 | Progress Note ---
Subjective Date of service: 01/08/22 Principal diagnosis: Vascular dementia with behavioral disturbance Subjective Comment: The patient was seen today. He is lying down. He is sleeping but easily arouses. He denies SI/HI or hallucinations of any kind. 01/07 The patient was seen today. He is sleeping, but arouses. He says he feels alright. He denies SI/HI or hallucinations of any kind. The patient is awaiting placement. 01/06 The patient was seen today. He is sleeping, but easily arouses. He says he's doing alright. The patient denies SI/HI or hallucinations. He says he slept good. 01/05 The patient was seen today. He says he's doing alright. He is stuttering. The patient says he slept pretty good. When asked about any SI/HI, the patient laughs and says "I want to cut my throat because I don't want to go home. You ladies keep me excited." He then laughs again. 01/04:The patient was seen this morning. He is focused on discharge. He reports sleep and appetite as good. He denies any current suicidal/homicidal ideation and denies hallucinations. No aggressive behavior reported. No changes made today. 01/03:The patient was seen this morning. He reports doing well. He reports sleep and appetite as good. He denies any current suicidal/homicidal ideation and denies hallucinations. No aggressive behavior reported. No changes made today. 01/02: The patient was seen this morning. He reports doing "ok" and ready for breakfast. He reports sleep and appetite as good. No aggressive behavior reported. He denies any current suicidal/homicidal ideation and denies hallucinations. 01/01: The patient was seen this morning. He states he is doing well and ready for breakfast. When asked about suicidality, he states " I want to to kill myself" then chuckled afterwards; he states no plan. The patient is confused and has been non compliant with medications. Per nurse, At the beginning of the shift the patient voiced SI to tech. He became tearful. Then pt presented as trying to laugh it off. He denied a plan but stated he could "find a way". The patient will be placed on line of sight level of observation, and to engage in therapeutic milieu. 12/31:The patient was seen resting in bed. No event reported from last night. 12/30: The patient was seen resting in bed. He states he is fine. He is pleasantly confused. No aggressive behavior reported. 12/29: The patient was seen this morning. He reports doing well. The patient is calm, alert and oriented to self with some confusion. Per nurse, he has been refusing his meds. Some irritability but no aggressive behavior reported. REVIEW OF SYSTEMS Constitutional: Negative for weight loss ENT: Negative for stridor Respiratory: Negative for cough or hemoptysis All other systems reviewed and are negative MENTAL STATUS EXAMINATION General Appearance and Behavior: Age appropriate, wearing appropriate clothes, cooperative, polite with questioning, good eye contact Cooperation: cooperative Psychomotor Behavior: Psychomotor normal Mood: alright Affect and affective range: congruent with stated affect Thought Process: Circumstantial Thought Content: None Speech: stuttering Suicidal Ideation: Denies Homicidal Ideation: Denies Hallucination: Denies Delusions: None elicited Impulse Control: Limited Insight and Judgment: Limited Memory: Intact Attention:attentive Orientation: Alert and oriented Diagnoses: Dementia with Behavioral Disturbance Treatment Plan Patient admitted for inpatient psychiatric evaluation, medication adjustment and close monitoring The patient's behavior, mood, sleep and appetite will be closely monitored. Patient enrolled in individual and group therapeutic sessions and encouraged to attend. Patient provided with a safe and structured environment. Patient's physical health needs will be addressed by the Hospitalist. Hospitalist Consulted Labs including CBC, CMP, Lipid profile and Hemoglobin A1C levels ordered for baseline reference Social Assessment will be completed and the Office Support Associate will work with patient and family to ensure a suitable and safe disposition Medication adjustment will be made as clinically indicated Continue home meds Usual Wellness Yarsanism/Preservation: - Start Trazodone 50 mg po QHS & 50 mg po QHS PRN between 10 PM & 2 AM for insomnia - Start Melatonin 5 mg po QHS to promote circadian rhythm The patient agreed on the treatment plan, understood the risk, benefit, alternative treatment, potential consequence of no treatment, and gave informed consent. Estimated days: 1 Post hospital care: primary care provider, psychiatric provider Case staffed with Dr. Arreguin Medications and Allergies Allergies Allergy/AdvReac Type Severity Reaction Status Date / Time No Known Allergies Allergy Verified 09/23/21 16:39 Home Medications Medication Instructions Recorded Confirmed Last Taken Type Amlodipine Besylate [Norvasc] 10 mg PO DAILY 09/07/14 12/27/21 09/06/14 History Aspirin [Aspirin BABY CHEW TAB] 81 mg PO DAILY 09/07/14 12/27/21 09/06/14 History 81 mg lisinopriL [Zestril TAB] 40 mg PO QDAY 09/07/14 12/27/21 09/06/14 History AtorvaSTATin [Lipitor] 20 mg PO QHS 09/24/21 12/27/21 Unknown History Brimonidine Tartrate [Brimonidine 1 drop OP Q8HR 09/24/21 12/27/21 Unknown History Tartrate 0.2%] Cyanocobalamin (Vitamin B-12) 500 mg PO QDAY 09/24/21 12/27/21 Unknown History [Vitamin B-12] Fluorometholone [Fml S.o.p] 3.5 gm OP QDAY 09/24/21 12/27/21 Unknown History Insulin Aspart Flexpen 12 units SUB-Q ACHS 09/24/21 12/27/21 Unknown History Omeprazole 20 mg PO QDAY 09/24/21 12/27/21 Unknown History Sertraline [Zoloft] 150 mg PO QDAY 09/24/21 12/27/21 Unknown History Sildenafil Citrate 50 mg PO 1XW PRN MDD 1 TAB 09/24/21 12/27/21 Unknown History buPROPion HCL [Bupropion Xl] 150 mg PO QDAY 09/24/21 12/27/21 Unknown History carvediloL [Coreg] 25 mg PO BID 09/24/21 12/27/21 Unknown History risperiDONE [RisperDAL] 0.5 mg PO QHS 09/24/21 12/27/21 Unknown History Latanoprost 0.005% [Xalatan 0.005%] 1 drop OP QPM 12/27/21 12/27/21 Unknown History Melatonin [Melatonin 3MG TAB] 3 mg PO HS 12/27/21 12/27/21 Unknown History metFORMIN XR [Glucophage XR] 500 mg PO QDAY 12/27/21 12/27/21 Unknown History methazolAMIDE [Methazolamide] 50 mg PO BID 12/27/21 12/27/21 Unknown History Active Meds: Active Medications Amlodipine Besylate (Amlodipine 10 Mg Tab) 10 mg PO DAILY [facility] Last Admin: 01/07/22 10:00 Dose: 10 mg Aspirin (Aspirin 81 Mg Tab Chew) 81 mg PO DAILY [facility] Last Admin: 01/07/22 10:00 Dose: 81 mg Atorvastatin Calcium (Atorvastatin 20 Mg Tab) 20 mg PO QHS [facility] Last Admin: 01/07/22 21:38 Dose: 20 mg Brimonidine Tartrate (Brimonidine 0.15% Ophth Soln) 1 drops OU Q8HR [facility] Last Admin: 01/08/22 05:21 Dose: 1 drops Bupropion HCl (Bupropion Xl 150 Mg Tab) 150 mg PO QDAY [facility] Last Admin: 01/07/22 10:00 Dose: 150 mg Carvedilol (Carvedilol 25 Mg Tab) 25 mg PO BID [facility] Last Admin: 01/07/22 21:37 Dose: 25 mg Cyanocobalamin (Cyanocobalamin (Vit B-12) 1000 Mcg Tab) 500 mcg PO QDAY [facility] Last Admin: 01/07/22 10:00 Dose: 500 mcg Insulin Human Lispro (Insulin Lispro 100 Unit/Ml) 12 unit SUB-Q ACHS [facility] Last Admin: 01/07/22 22:33 Dose: Not Given Latanoprost (Latanoprost 0.005% Ophth Soln 2.5 Ml) 1 drops OU QPM [facility] Last Admin: 01/07/22 17:30 Dose: 1 drops Lisinopril (Lisinopril 40 Mg Tab) 40 mg PO QDAY [facility] Last Admin: 01/07/22 10:00 Dose: 40 mg Melatonin (Melatonin 5 Mg Tab) 5 mg PO QHS [facility] Last Admin: 01/07/22 21:38 Dose: 5 mg Metformin HCl (Metformin Xr 500mg Tab) 500 mg PO QDDIAB [facility] Last Admin: 01/07/22 08:00 Dose: 500 mg Miscellaneous Medication (Fluorometholone [Fml S.O.P. 0.25%]) 3.5 gm OP QDAY [facility] Miscellaneous Medication (Methazolamide [Methazolamide]) 50 mg PO BID [facility] Pantoprazole Sodium (Pantoprazole 20 Mg Tab) 20 mg PO QDAY [facility] Last Admin: 01/07/22 10:00 Dose: 20 mg Risperidone (Risperidone 1 Mg Tab) 0.5 mg PO QHS [facility] Last Admin: 01/07/22 21:39 Dose: 0.5 mg Sertraline HCl (Sertraline 50 Mg Tab) 150 mg PO QDAY [facility] Last Admin: 01/07/22 10:00 Dose: 150 mg Results - Results Labs/Vitals: Laboratory Last Values WBC 4.3 K/mm3 (4.5-11.0) L 12/27/21 23:33 RBC 3.33 M/mm3 (3.65-5.03) L 12/27/21 23:33 Hgb 10.1 gm/dl (11.8-15.2) L 12/27/21 23:33 Hct 30.8 % (35.5-45.6) L 12/27/21 23: MCV 92 fl (84-94) 12/27/21 23: MCH 30 pg (28-32) 12/27/21 23: MCHC 33 % (32-34) 12/27/21 23: RDW 13.2 % (13.2-15.2) 12/27/21 23: Plt Count 185 K/mm3 (140-440) 12/27/21 23:33 Lymph % (Auto) 48.0 % (13.4-35.0) H 12/27/21 23:33 [place] % (Auto) 12.7 % (0.0-7.3) H 12/27/21 23:33 Eos % (Auto) 3.0 % (0.0-4.3) 12/27/21 23: Baso % (Auto) 0.6 % (0.0-1.8) 12/27/21 23: Lymph # (Auto) 2.1 K/mm3 (1.2-5.4) 12/27/21 23: [place] # (Auto) 0.5 K/mm3 (0.0-0.8) 12/27/21 23: Eos # (Auto) 0.1 K/mm3 (0.0-0.4) 12/27/21 23: Baso # (Auto) 0.0 K/mm3 (0.0-0.1) 12/27/21 23: Seg Neutrophils % 35.7 % (40.0-70.0) L 12/27/21 23: Seg Neutrophils # 1.5 K/mm3 (1.8-7.7) L 12/27/21 23:33 Sodium 136 mmol/L (137-145) L 12/27/21 23:33 Potassium 3.9 mmol/L (3.6-5.0) 12/27/21 23:33 Chloride 101.9 mmol/L (98-107) 12/27/21 23:33 Carbon Dioxide 20 mmol/L (22-30) L 12/27/21 23:33 Anion Gap 18 mmol/L 12/27/21 23:33 BUN 29 mg/dL (9-20) H 12/27/21 23:33 Creatinine 1.8 mg/dL (0.8-1.3) H 12/27/21 23:33 Estimated GFR 44 ml/min 12/27/21 23:33 BUN/Creatinine Ratio 16 % 12/27/21 23:33 Glucose 119 mg/dL (75-100) H 12/27/21 23:33 POC Glucose 131 mg/dL (70-105) H 01/08/22 06:39 Hemoglobin A1c 6.4 % (4-6) H 12/27/21 23:33 Calcium 9.3 mg/dL (8.4-10.2) 12/27/21 23:33 Total Bilirubin 0.60 mg/dL (0.1-1.2) 12/27/21 23:33 AST 32 units/L (5-40) 12/27/21 23:33 ALT 22 units/L (7-56) 12/27/21 23:33 Alkaline Phosphatase 85 units/L (35-129) 12/27/21 23:33 Total Protein 7.0 g/dL (6.3-8.2) 12/27/21 23:33 Albumin 3.9 g/dL (3.9-5) 12/27/21 23:33 Albumin/Globulin Ratio 1.3 % 12/27/21 23:33 Triglycerides 127 mg/dL (2-149) 12/27/21 23:33 Cholesterol 169 mg/dL (50-199) 12/27/21 23:33 LDL Cholesterol Direct 114 mg/dL (50-130) 12/27/21 23:33 HDL Cholesterol 31 mg/dL (40-59) L 12/27/21 23:33 Cholesterol/HDL Ratio 5.45 % 12/27/21 23:33 TSH 1.330 mlU/mL (0.270-4.200) 12/27/21 23:33 Last Vital Signs Temp 98.9 F 01/07/22 19:38 Pulse 73 01/07/22 21:37 Resp 17 01/07/22 19:38 BP 138/69 01/07/22 21:37 Pulse Ox 99 01/07/22 19:38
--- NOTE | 2022-01-08 10:47 | Progress Note ---
Assessment and Plan - Patient Problems (1) Vascular dementia with behavioral disturbance Current Visit: Yes Status: Acute Plan to address problem: Verbal prompting, verbal redirection, benzodiazepine therapy as clinically indicated. (2) Cerebral atherosclerosis Current Visit: Yes Status: Acute Plan to address problem: Antiplatelet therapy as clinically indicated, risk factor reduction. (3) Hypertension Current Visit: Yes Status: Acute Qualifiers: Hypertension type: primary hypertension Qualified Code(s): I10 - Essential (primary) hypertension Plan to address problem: Monitor blood pressure every shift, continue medical management. (4) Hyperlipidemia Current Visit: Yes Status: Acute Qualifiers: Hyperlipidemia type: mixed hyperlipidemia Qualified Code(s): E78.2 - Mixed hyperlipidemia Plan to address problem: Statin therapy, low-cholesterol diet (5) Diabetes Current Visit: Yes Status: Acute Plan to address problem: Consistent carbohydrate diet, Accu-Chek, continue oral antihyperglycemic therapy, hypoglycemia protocol. (6) Advance care planning Current Visit: Yes Status: Acute Plan to address problem: Disease education done, care plan discussed, diagnoses discussed, prognosis discussed, patient is full code. Patient acknowledges understanding and agreement with care plan, +30 minutes. (7) Preventative health care Current Visit: Yes Status: Acute Plan to address problem: Patient counseled regarding risk factor reduction, home safety measures, outpatient follow-up with primary care physician for all age and risk factor appropriate screening test, +30 minutes. History Interval history: 86 YO Male with Vascular Dementia with Behavioral Disturbance, Cerebral Atherosclerosis, HTN, HLD, DM, GERD, CKD, MARGARETH admitted to [facility] for psychiatric stabilization. Consult placed by Dr. Thompson for medical management. Patient seen and evaluated in the recreation room. Patient resting. Patient has diminished cognition but appears to be at baseline level of cognition and function. Hospitalist Physical - Constitutional Vitals: Temp Pulse Resp BP Pulse Ox 98.9 F 73 17 138/69 99 01/07/22 19:38 01/07/22 21:37 01/07/22 19:38 01/07/22 21:37 01/07/22 19:38 General appearance: Present: no acute distress, well-nourished - EENT Eyes: Present: PERRL ENT: hearing decreased - Neck Neck: Present: supple - Respiratory Respiratory effort: normal Respiratory: bilateral: diminished - Cardiovascular Rhythm: regular Heart Sounds: Present: S1 & S2 - Extremities Extremities: no ischemia Peripheral Pulses: within normal limits - Abdominal General gastrointestinal: soft, non-tender, non-distended - Integumentary Integumentary: Present: clear, dry - Psychiatric Psychiatric: cooperative - Neurologic Neurologic: CNII-XII intact Results - Labs CBC & Chem 7: 12/27/21 23:33 12/27/21 23:33 Labs: Laboratory Last Values WBC 4.3 K/mm3 (4.5-11.0) L 12/27/21 23:33 RBC 3.33 M/mm3 (3.65-5.03) L 12/27/21 23:33 Hgb 10.1 gm/dl (11.8-15.2) L 12/27/21 23:33 Hct 30.8 % (35.5-45.6) L 12/27/21 23:33 MCV 92 fl (84-94) 12/27/21 23: MCH 30 pg (28-32) 12/27/21 23: MCHC 33 % (32-34) 12/27/21 23:33 RDW 13.2 % (13.2-15.2) 12/27/21 23:33 Plt Count 185 K/mm3 (140-440) 12/27/21 23:33 Lymph % (Auto) 48.0 % (13.4-35.0) H 12/27/21 23:33 [place] % (Auto) 12.7 % (0.0-7.3) H 12/27/21 23:33 Eos % (Auto) 3.0 % (0.0-4.3) 12/27/21 23: Baso % (Auto) 0.6 % (0.0-1.8) 12/27/21 23:33 Lymph # (Auto) 2.1 K/mm3 (1.2-5.4) 12/27/21 23:33 [place] # (Auto) 0.5 K/mm3 (0.0-0.8) 12/27/21 23:33 Eos # (Auto) 0.1 K/mm3 (0.0-0.4) 12/27/21 23:33 Baso # (Auto) 0.0 K/mm3 (0.0-0.1) 12/27/21 23:33 Seg Neutrophils % 35.7 % (40.0-70.0) L 12/27/21 23:33 Seg Neutrophils # 1.5 K/mm3 (1.8-7.7) L 12/27/21 23:33 Sodium 136 mmol/L (137-145) L 12/27/21 23:33 Potassium 3.9 mmol/L (3.6-5.0) 12/27/21 23:33 Chloride 101.9 mmol/L (98-107) 12/27/21 23:33 Carbon Dioxide 20 mmol/L (22-30) L 12/27/21 23:33 Anion Gap 18 mmol/L 12/27/21 23:33 BUN 29 mg/dL (9-20) H 12/27/21 23:33 Creatinine 1.8 mg/dL (0.8-1.3) H 12/27/21 23:33 Estimated GFR 44 ml/min 12/27/21 23:33 BUN/Creatinine Ratio 16 % 12/27/21 23:33 Glucose 119 mg/dL (75-100) H 12/27/21 23:33 POC Glucose 131 mg/dL (70-105) H 01/08/22 06:39 Hemoglobin A1c 6.4 % (4-6) H 12/27/21 23:33 Calcium 9.3 mg/dL (8.4-10.2) 12/27/21 23:33 Total Bilirubin 0.60 mg/dL (0.1-1.2) 12/27/21 23:33 AST 32 units/L (5-40) 12/27/21 23:33 ALT 22 units/L (7-56) 12/27/21 23:33 Alkaline Phosphatase 85 units/L (35-129) 12/27/21 23:33 Total Protein 7.0 g/dL (6.3-8.2) 12/27/21 23:33 Albumin 3.9 g/dL (3.9-5) 12/27/21 23:33 Albumin/Globulin Ratio 1.3 % 12/27/21 23:33 Triglycerides 127 mg/dL (2-149) 12/27/21 23:33 Cholesterol 169 mg/dL (50-199) 12/27/21 23:33 LDL Cholesterol Direct 114 mg/dL (50-130) 12/27/21 23:33 HDL Cholesterol 31 mg/dL (40-59) L 12/27/21 23:33 Cholesterol/HDL Ratio 5.45 % 12/27/21 23:33 TSH 1.330 mlU/mL (0.270-4.200) 12/27/21 23:33 [place]/IV: Voiding Method Toilet Active Medications - Current Medications Current Medications: Generic Name Dose Route Start Last Admin Trade Name Freq PRN Reason Stop Dose Admin Amlodipine Besylate 10 mg 12/27/21 14:00 01/07/22 10:00 Amlodipine 10 Mg Tab PO 10 mg DAILY [facility] Administration Aspirin 81 mg 12/27/21 12:00 01/07/22 10:00 Aspirin 81 Mg Tab Chew PO 81 mg DAILY [facility] Administration Atorvastatin Calcium 20 mg 12/27/21 22:00 01/07/22 21:38 Atorvastatin 20 Mg Tab PO 20 mg QHS [facility] Administration Brimonidine Tartrate 1 drops 12/27/21 14:00 01/08/22 05:21 Brimonidine 0.15% Ophth Soln OU 1 drops Q8HR [facility] Administration Bupropion HCl 150 mg 12/27/21 12:00 01/07/22 10:00 Bupropion Xl 150 Mg Tab PO 150 mg QDAY [facility] Administration Carvedilol 25 mg 12/27/21 12:00 01/07/22 21:37 Carvedilol 25 Mg Tab PO 25 mg BID [facility] Administration Cyanocobalamin 500 mcg 12/28/21 10:00 01/07/22 10:00 Cyanocobalamin (Vit B-12) 1000 Mcg Tab PO 500 mcg QDAY [facility] Administration Insulin Human Lispro 12 unit 12/27/21 12:00 01/07/22 22:33 Insulin Lispro 100 Unit/Ml SUB-Q Not Given ACHS [facility] Latanoprost 1 drops 12/27/21 18:00 01/07/22 17:30 Latanoprost 0.005% Ophth Soln 2.5 Ml OU 1 drops QPM [facility] Administration Lisinopril 40 mg 12/27/21 12:00 01/07/22 10:00 Lisinopril 40 Mg Tab PO 40 mg QDAY [facility] Administration Melatonin 5 mg 12/27/21 22:00 01/07/22 21:38 Melatonin 5 Mg Tab PO 5 mg QHS [facility] Administration Metformin HCl 500 mg 12/27/21 12:00 01/07/22 08:00 Metformin Xr 500mg Tab PO 500 mg QDDIAB [facility] Administration Miscellaneous Medication 3.5 gm 12/27/21 10:45 Fluorometholone [Fml S.O.P. 0.25%] OP QDAY [facility] Miscellaneous Medication 50 mg 12/27/21 10:45 Methazolamide [Methazolamide] PO BID [facility] Pantoprazole Sodium 20 mg 12/27/21 12:00 01/07/22 10:00 Pantoprazole 20 Mg Tab PO 20 mg QDAY [facility] Administration Risperidone 0.5 mg 12/27/21 22:00 01/07/22 21:39 Risperidone 1 Mg Tab PO 0.5 mg QHS [facility] Administration Sertraline HCl 150 mg 12/27/21 12:00 01/07/22 10:00 Sertraline 50 Mg Tab PO 150 mg QDAY [facility] Administration Nutrition/Malnutrition Assess - Dietary Evaluation Nutrition/Malnutrition Findings: Nutrition Notes Start: 01/05/22 16:53 Freq: Status: Active Protocol: Document 01/05/22 16:53 STEPHANIA (Rec: 01/05/22 17:01 STEPHANIA [id number]) Nutrition Notes Need for Assessment generated from: LOS Initial or Follow up Assessment Current Diagnosis Diabetes,Hypertension, Hyperlipidemia Other Pertinent Diagnosis Vascular Dementia w/Behavioral Disturbance, Cerebral Athersclerosis. Current Diet Cardiac/Consistent Carbohydrates Diet (since B ). Labs/Tests 01/05: N/A. Pertinent Medications 01/05: Vit B12, others nutritionally unremarkable. 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 Weight Status Overweight Subjective/Other Information RD consult for LOS assessment. Pt's PO intake of meals has been Good(75%) and well tolerated, according to ADL notes. Pt is on Room Air, O2 saturation @ 97%, according to Physical Assessment History notes. Percent of energy/protein needs met: Prescribed Cardiac/Consistent Carbohydrates Diet provides for energy/protein needs (1, 977 Kcal/86 g) during LOS. Burn Absent Trauma Absent GI Symptoms None Food Allergy No Skin Integrity/Comment Assessment WNL. 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 No Is Patient Ambulatory and/or Out of Bed Yes REE-([facility]-ambulatory/OOB) [ 1583.257 [id number]] Kcal/Kg value to use for calculation 15 Approximate Energy Requirements Using 1021 kcal/Kg Calculation Used for Recommendations Kcal/kg Additional Notes Protein: 1-1.2 g/Kg ABW; 68-82 g/day. Fluids: 1 ml/Kcal, or as per MD. Nutrition Intervention Change Diet Order: Continue Cardiac/Consistent Carbohydrates Diet. Follow-Up By: 01/12/22 Additional Comments Continue monitoring food tolerance, %PO intake of meals , and BM.
[2022-01-08] MEDS: SERTRALINE 50 MG TAB PO SCH (10:58)
[2022-01-08] MEDS: CYANOCOBALAMIN (VIT B-12) 1000 MCG TAB PO SCH (10:58)
[2022-01-08] MEDS: amLODIPine 10 MG TAB PO SCH (10:59)
[2022-01-08] MEDS: PANTOPRAZOLE 20 MG TAB PO SCH (10:59)
[2022-01-08] MEDS: carvediloL 25 MG TAB PO SCH ×2 (11:00→21:23)
[2022-01-08] MEDS: LISINOPRIL 40 MG TAB PO SCH (11:01)
[2022-01-08] MEDS: ASPIRIN 81 MG TAB CHEW PO SCH (11:02)
[2022-01-08] MEDS: metFORMIN XR 500MG TAB PO SCH (11:02)
[2022-01-08] MEDS: buPROPion XL 150 MG TAB PO SCH (11:02)
[2022-01-08] MEDS: LATANOPROST 0.005% OPHTH SOLN 2.5 ML OU SCH (17:26)
[2022-01-08] MEDS: MELATONIN 5 MG TAB PO SCH (21:10)
[2022-01-08] MEDS: risperiDONE 1 MG TAB PO SCH (21:10)
[2022-01-09] MEDS: BRIMONIDINE 0.15% OPHTH SOLN OU SCH (06:25)
[2022-01-09] MEDS: INSULIN LISPRO 100 UNIT/ML SUB-Q SCH (09:10)
[2022-01-09] MEDS: buPROPion XL 150 MG TAB PO SCH (10:02)
[2022-01-09] MEDS: CYANOCOBALAMIN (VIT B-12) 1000 MCG TAB PO SCH (10:02)
[2022-01-09] MEDS: PANTOPRAZOLE 20 MG TAB PO SCH (10:02)
[2022-01-09] MEDS: metFORMIN XR 500MG TAB PO SCH (10:04)
[2022-01-09 10:07] VITALS: BP 121/63
--- NOTE | 2022-01-09 10:18 | Progress Note ---
Subjective Date of service: 01/09/22 Principal diagnosis: Vascular dementia with behavioral disturbance Subjective Comment: The patient was sleeping. He easily arouses. He denies SI/HI or hallucinations. He is awaiting placement. 01/08 The patient was seen today. He is lying down. He is sleeping but easily arouses. He denies SI/HI or hallucinations of any kind. 01/07 The patient was seen today. He is sleeping, but arouses. He says he feels alright. He denies SI/HI or hallucinations of any kind. The patient is awaiting placement. 01/06 The patient was seen today. He is sleeping, but easily arouses. He says he 's doing alright. The patient denies SI/HI or hallucinations. He says he slept good. 01/05 The patient was seen today. He says he's doing alright. He is stuttering. The patient says he slept pretty good. When asked about any SI/HI, the patient laughs and says "I want to cut my throat because I don't want to go home. You ladies keep me excited." He then laughs again. 01/04:The patient was seen this morning. He is focused on discharge. He reports sleep and appetite as good. He denies any current suicidal/homicidal ideation and denies hallucinations. No aggressive behavior reported. No changes made today. 01/03:The patient was seen this morning. He reports doing well. He reports sleep and appetite as good. He denies any current suicidal/homicidal ideation and denies hallucinations. No aggressive behavior reported. No changes made today. 01/02: The patient was seen this morning. He reports doing "ok" and ready for breakfast. He reports sleep and appetite as good. No aggressive behavior reported. He denies any current suicidal/homicidal ideation and denies hallucinations. 01/01: The patient was seen this morning. He states he is doing well and ready for breakfast. When asked about suicidality, he states " I want to to kill myself" then chuckled afterwards; he states no plan. The patient is confused and has been non compliant with medications. Per nurse, At the beginning of the shift the patient voiced SI to tech. He became tearful. Then pt presented as trying to laugh it off. He denied a plan but stated he could "find a way". The patient will be placed on line of sight level of observation, and to engage in therapeutic milieu. 12/31:The patient was seen resting in bed. No event reported from last night. 12/30: The patient was seen resting in bed. He states he is fine. He is pleasant ly confused. No aggressive behavior reported. 12/29: The patient was seen this morning. He reports doing well. The patient is calm, alert and oriented to self with some confusion. Per nurse, he has been refusing his meds. Some irritability but no aggressive behavior reported. REVIEW OF SYSTEMS Constitutional: Negative for weight loss ENT: Negative for stridor Respiratory: Negative for cough or hemoptysis All other systems reviewed and are negative MENTAL STATUS EXAMINATION General Appearance and Behavior: Age appropriate, wearing appropriate clothes, cooperative, polite with questioning, good eye contact Cooperation: cooperative Psychomotor Behavior: Psychomotor normal Mood: alright Affect and affective range: congruent with stated affect Thought Process: Circumstantial Thought Content: None Speech: stuttering Suicidal Ideation: Denies Homicidal Ideation: Denies Hallucination: Denies Delusions: None elicited Impulse Control: Limited Insight and Judgment: Limited Memory: Intact Attention:attentive Orientation: Alert and oriented Diagnoses: Dementia with Behavioral Disturbance Treatment Plan Patient admitted for inpatient psychiatric evaluation, medication adjustment and close monitoring The patient's behavior, mood, sleep and appetite will be closely monitored. Patient enrolled in individual and group therapeutic sessions and encouraged to attend. Patient provided with a safe and structured environment. Patient's physical health needs will be addressed by the Hospitalist. Hospitalist Consulted Labs including CBC, CMP, Lipid profile and Hemoglobin A1C levels ordered for baseline reference Social Assessment will be completed and the Metal Model Maker will work with patient and family to ensure a suitable and safe disposition Medication adjustment will be made as clinically indicated Continue home meds Usual Wellness Bahai/Preservation: - Start Trazodone 50 mg po QHS & 50 mg po QHS PRN between 10 PM & 2 AM for insomnia - Start Melatonin 5 mg po QHS to promote circadian rhythm The patient agreed on the treatment plan, understood the risk, benefit, alternative treatment, potential consequence of no treatment, and gave informed consent. Estimated days: 1 Post hospital care: primary care provider, psychiatric provider Case staffed with Dr. Arreguin Medications and Allergies Allergies Allergy/AdvReac Type Severity Reaction Status Date / Time No Known Allergies Allergy Verified 09/23/21 16:39 Home Medications Medication Instructions Recorded Confirmed Last Taken Type Amlodipine Besylate [Norvasc] 10 mg PO DAILY 09/07/14 12/27/21 09/06/14 History Aspirin [Aspirin BABY CHEW TAB] 81 mg PO DAILY 09/07/14 12/27/21 09/06/14 History 81 mg lisinopriL [Zestril TAB] 40 mg PO QDAY 09/07/14 12/27/21 09/06/14 History AtorvaSTATin [Lipitor] 20 mg PO QHS 09/24/21 12/27/21 Unknown History Brimonidine Tartrate [Brimonidine 1 drop OP Q8HR 09/24/21 12/27/21 Unknown History Tartrate 0.2%] Cyanocobalamin (Vitamin B-12) 500 mg PO QDAY 09/24/21 12/27/21 Unknown History [Vitamin B-12] Fluorometholone [Fml S.o.p] 3.5 gm OP QDAY 09/24/21 12/27/21 Unknown History Insulin Aspart Flexpen 12 units SUB-Q ACHS 09/24/21 12/27/21 Unknown History Omeprazole 20 mg PO QDAY 09/24/21 12/27/21 Unknown History Sertraline [Zoloft] 150 mg PO QDAY 09/24/21 12/27/21 Unknown History Sildenafil Citrate 50 mg PO 1XW PRN MDD 1 TAB 09/24/21 12/27/21 Unknown History buPROPion HCL [Bupropion Xl] 150 mg PO QDAY 09/24/21 12/27/21 Unknown History carvediloL [Coreg] 25 mg PO BID 09/24/21 12/27/21 Unknown History risperiDONE [RisperDAL] 0.5 mg PO QHS 09/24/21 12/27/21 Unknown History Latanoprost 0.005% [Xalatan 0.005%] 1 drop OP QPM 12/27/21 12/27/21 Unknown History Melatonin [Melatonin 3MG TAB] 3 mg PO HS 12/27/21 12/27/21 Unknown History metFORMIN XR [Glucophage XR] 500 mg PO QDAY 12/27/21 12/27/21 Unknown History methazolAMIDE [Methazolamide] 50 mg PO BID 12/27/21 12/27/21 Unknown History Active Meds: Active Medications Amlodipine Besylate (Amlodipine 10 Mg Tab) 10 mg PO DAILY [facility] Last Admin: 01/08/22 10:59 Dose: 10 mg Aspirin (Aspirin 81 Mg Tab Chew) 81 mg PO DAILY [facility] Last Admin: 01/08/22 11:02 Dose: 81 mg Atorvastatin Calcium (Atorvastatin 20 Mg Tab) 20 mg PO QHS [facility] Last Admin: 01/08/22 21:11 Dose: 20 mg Brimonidine Tartrate (Brimonidine 0.15% Ophth Soln) 1 drops OU Q8HR [facility] Last Admin: 01/09/22 06:25 Dose: 1 drops Bupropion HCl (Bupropion Xl 150 Mg Tab) 150 mg PO QDAY [facility] Last Admin: 01/09/22 10:02 Dose: 150 mg Carvedilol (Carvedilol 25 Mg Tab) 25 mg PO BID [facility] Last Admin: 01/08/22 21:23 Dose: Not Given Cyanocobalamin (Cyanocobalamin (Vit B-12) 1000 Mcg Tab) 500 mcg PO QDAY [facility] Last Admin: 01/09/22 10:02 Dose: 500 mcg Insulin Human Lispro (Insulin Lispro 100 Unit/Ml) 12 unit SUB-Q ACHS [facility] Last Admin: 01/09/22 09:10 Dose: Not Given Latanoprost (Latanoprost 0.005% Ophth Soln 2.5 Ml) 1 drops OU QPM [facility] Last Admin: 01/08/22 17:26 Dose: 1 drops Lisinopril (Lisinopril 40 Mg Tab) 40 mg PO QDAY [facility] Last Admin: 01/08/22 11:01 Dose: 40 mg Melatonin (Melatonin 5 Mg Tab) 5 mg PO QHS [facility] Last Admin: 01/08/22 21:10 Dose: 5 mg Metformin HCl (Metformin Xr 500mg Tab) 500 mg PO QDDIAB [facility] Last Admin: 01/09/22 10:04 Dose: 500 mg Pantoprazole Sodium (Pantoprazole 20 Mg Tab) 20 mg PO QDAY [facility] Last Admin: 01/09/22 10:02 Dose: 20 mg Risperidone (Risperidone 1 Mg Tab) 0.5 mg PO QHS [facility] Last Admin: 01/08/22 21:10 Dose: 0.5 mg Sertraline HCl (Sertraline 50 Mg Tab) 150 mg PO QDAY [facility] Last Admin: 01/08/22 10:58 Dose: 150 mg Results - Results Labs/Vitals: Laboratory Last Values WBC 4.3 K/mm3 (4.5-11.0) L 12/27/21 23:33 RBC 3.33 M/mm3 (3.65-5.03) L 12/27/21 23:33 Hgb 10.1 gm/dl (11.8-15.2) L 12/27/21 23:33 Hct 30.8 % (35.5-45.6) L 12/27/21 23:33 MCV 92 fl (84-94) 12/27/21 23: MCH 30 pg (28-32) 12/27/21 23: MCHC 33 % (32-34) 12/27/21 23: RDW 13.2 % (13.2-15.2) 12/27/21 23: Plt Count 185 K/mm3 (140-440) 12/27/21 23:33 Lymph % (Auto) 48.0 % (13.4-35.0) H 12/27/21 23:33 [place] % (Auto) 12.7 % (0.0-7.3) H 12/27/21 23:33 Eos % (Auto) 3.0 % (0.0-4.3) 12/27/21 23:33 Baso % (Auto) 0.6 % (0.0-1.8) 12/27/21 23: Lymph # (Auto) 2.1 K/mm3 (1.2-5.4) 12/27/21 23: [place] # (Auto) 0.5 K/mm3 (0.0-0.8) 12/27/21 23: Eos # (Auto) 0.1 K/mm3 (0.0-0.4) 12/27/21 23: Baso # (Auto) 0.0 K/mm3 (0.0-0.1) 12/27/21 23: Seg Neutrophils % 35.7 % (40.0-70.0) L 12/27/21 23: Seg Neutrophils # 1.5 K/mm3 (1.8-7.7) L 12/27/21 23:33 Sodium 136 mmol/L (137-145) L 12/27/21 23:33 Potassium 3.9 mmol/L (3.6-5.0) 12/27/21 23:33 Chloride 101.9 mmol/L (98-107) 12/27/21 23:33 Carbon Dioxide 20 mmol/L (22-30) L 12/27/21 23:33 Anion Gap 18 mmol/L 12/27/21 23:33 BUN 29 mg/dL (9-20) H 12/27/21 23:33 Creatinine 1.8 mg/dL (0.8-1.3) H 12/27/21 23:33 Estimated GFR 44 ml/min 12/27/21 23:33 BUN/Creatinine Ratio 16 % 12/27/21 23:33 Glucose 119 mg/dL (75-100) H 12/27/21 23:33 POC Glucose 128 mg/dL (70-105) H 01/08/22 19:01 Hemoglobin A1c 6.4 % (4-6) H 12/27/21 23:33 Calcium 9.3 mg/dL (8.4-10.2) 12/27/21 23:33 Total Bilirubin 0.60 mg/dL (0.1-1.2) 12/27/21 23:33 AST 32 units/L (5-40) 12/27/21 23:33 ALT 22 units/L (7-56) 12/27/21 23:33 Alkaline Phosphatase 85 units/L (35-129) 12/27/21 23:33 Total Protein 7.0 g/dL (6.3-8.2) 12/27/21 23:33 Albumin 3.9 g/dL (3.9-5) 12/27/21 23:33 Albumin/Globulin Ratio 1.3 % 12/27/21 23:33 Triglycerides 127 mg/dL (2-149) 12/27/21 23:33 Cholesterol 169 mg/dL (50-199) 12/27/21 23:33 LDL Cholesterol Direct 114 mg/dL (50-130) 12/27/21 23:33 HDL Cholesterol 31 mg/dL (40-59) L 12/27/21 23:33 Cholesterol/HDL Ratio 5.45 % 12/27/21 23:33 TSH 1.330 mlU/mL (0.270-4.200) 12/27/21 23:33 Last Vital Signs Temp 98.8 F 01/09/22 09:23 Pulse 77 01/09/22 09:23 Resp 18 01/09/22 09:23 BP 121/63 01/09/22 09:23 Pulse Ox 100 01/09/22 09:23
--- NOTE | 2022-01-09 10:36 | Discharge Summary ---
Providers - Providers Date of Admission: 12/27/21 11:03 Date of discharge: 01/09/22 Attending physician: THA FLORES MD 12/27/21 07:00 Consult to Physician [CONS] Routine Comment: Consulting Provider: GILLIAN MARADIAGA Physician Instructions: Ps manage the existing medical problems. 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 The patients mood, cognition, behavior, motivation, compliance to treatment and appreciation on family/social support are improved and stabilized. At the time of discharge, the patient had no suicidal ideas, no homicidal ideas, no aggressive thoughts, no endangering behavior and no debilitating adverse effects. The patient agreed on the treatment plan, understood the risk, benefit, alternative treatment, potential consequence of no treatment, and gave informed consent. Disposition: HOME / SELF CARE / HOMELESS Time spent for discharge: 35 Allergies/Adverse Reactions: Allergies No Known Allergies Allergy (Verified 09/23/21 16:39) Vital Signs: Last Vital Signs Temp 98.8 F 01/09/22 09:23 Pulse 77 01/09/22 09:23 Resp 18 01/09/22 09:23 BP 121/63 01/09/22 09:23 Pulse Ox 100 01/09/22 09:23 Last Lab: Laboratory Last Values WBC 4.3 K/mm3 (4.5-11.0) L 12/27/21 23:33 RBC 3.33 M/mm3 (3.65-5.03) L 12/27/21 23:33 Hgb 10.1 gm/dl (11.8-15.2) L 12/27/21 23:33 Hct 30.8 % (35.5-45.6) L 12/27/21 23:33 MCV 92 fl (84-94) 12/27/21 23:33 MCH 30 pg (28-32) 12/27/21 23:33 MCHC 33 % (32-34) 12/27/21 23:33 RDW 13.2 % (13.2-15.2) 12/27/21 23:33 Plt Count 185 K/mm3 (140-440) 12/27/21 23:33 Lymph % (Auto) 48.0 % (13.4-35.0) H 12/27/21 23:33 [place] % (Auto) 12.7 % (0.0-7.3) H 12/27/21 23:33 Eos % (Auto) 3.0 % (0.0-4.3) 12/27/21 23:33 Baso % (Auto) 0.6 % (0.0-1.8) 12/27/21 23: Lymph # (Auto) 2.1 K/mm3 (1.2-5.4) 12/27/21 23: [place] # (Auto) 0.5 K/mm3 (0.0-0.8) 12/27/21 23: Eos # (Auto) 0.1 K/mm3 (0.0-0.4) 12/27/21 23: Baso # (Auto) 0.0 K/mm3 (0.0-0.1) 12/27/21 23:33 Seg Neutrophils % 35.7 % (40.0-70.0) L 12/27/21 23: Seg Neutrophils # 1.5 K/mm3 (1.8-7.7) L 12/27/21 23:33 Sodium 136 mmol/L (137-145) L 12/27/21 23:33 Potassium 3.9 mmol/L (3.6-5.0) 12/27/21 23: Chloride 101.9 mmol/L (98-107) 12/27/21 23:33 Carbon Dioxide 20 mmol/L (22-30) L 12/27/21 23:33 Anion Gap 18 mmol/L 12/27/21 23:33 BUN 29 mg/dL (9-20) H 12/27/21 23:33 Creatinine 1.8 mg/dL (0.8-1.3) H 12/27/21 23:33 Estimated GFR 44 ml/min 12/27/21 23:33 BUN/Creatinine Ratio 16 % 12/27/21 23:33 Glucose 119 mg/dL (75-100) H 12/27/21 23:33 POC Glucose 128 mg/dL (70-105) H 01/08/22 19:01 Hemoglobin A1c 6.4 % (4-6) H 12/27/21 23:33 Calcium 9.3 mg/dL (8.4-10.2) 12/27/21 23:33 Total Bilirubin 0.60 mg/dL (0.1-1.2) 12/27/21 23:33 AST 32 units/L (5-40) 12/27/21 23:33 ALT 22 units/L (7-56) 12/27/21 23:33 Alkaline Phosphatase 85 units/L (35-129) 12/27/21 23:33 Total Protein 7.0 g/dL (6.3-8.2) 12/27/21 23:33 Albumin 3.9 g/dL (3.9-5) 12/27/21 23:33 Albumin/Globulin Ratio 1.3 % 12/27/21 23:33 Triglycerides 127 mg/dL (2-149) 12/27/21 23:33 Cholesterol 169 mg/dL (50-199) 12/27/21 23:33 LDL Cholesterol Direct 114 mg/dL (50-130) 12/27/21 23:33 HDL Cholesterol 31 mg/dL (40-59) L 12/27/21 23:33 Cholesterol/HDL Ratio 5.45 % 12/27/21 23:33 TSH 1.330 mlU/mL (0.270-4.200) 12/27/21 23:33 Core Measure Documentation - Palliative Care Palliative Care/ Comfort Measures: Not Applicable - Core Measures Any of the following diagnoses?: none Exam - Constitutional Vitals: Temp Pulse Resp BP Pulse Ox 98.8 F 77 18 121/63 100 01/09/22 09:23 01/09/22 09:23 01/09/22 09:23 01/09/22 09:23 01/09/22 09:23 General appearance: Present: no acute distress - EENT Eyes: Present: PERRL, EOM intact ENT: hearing intact, clear oral mucosa - Neck Neck: Present: supple, normal ROM - Respiratory Respiratory effort: normal Plan Activity: advance as tolerated Weight Bearing Status: Weight Bear as Tolerated Care Plan Goals: Maintain good and stable mental health Plan of Treatment: The patient should be compliant with medications, not to use drugs and not to drink alcohol.The patient understands that if suicidal ideas, homicidal ideas, or any endangering thoughts/behavior arise, they should immediately seek for emergent assistance including but not limited to crisis hot line and emergency room. Follow up with outpatient Psychiatrist and PCP within 7 - 14 days of discharge. Assessment: Dementia with Behavioral Disturbance Follow up with: PRIMARY CARE,MD [Primary Care Provider] - 7 Days Prescriptions: Melatonin [Melatonin 5MG TAB] 5 mg PO QHS #30 tablet risperiDONE [RisperDAL] 0.5 mg PO QHS #15
[2022-01-09] MEDS: amLODIPine 10 MG TAB PO SCH (11:18)
[2022-01-09] MEDS: SERTRALINE 50 MG TAB PO SCH (11:19)
[2022-01-09] MEDS: carvediloL 25 MG TAB PO SCH (11:19)
[2022-01-09] MEDS: LISINOPRIL 40 MG TAB PO SCH (11:19)
== END 2022-01-09 11:50 | disposition home or self-care (01) | DRG 884 ==
LOC: 3A 16:58 → UNDOADMIN 16:58 → 5A 12-27 11:03
PROVIDERS: ADMIT Psychiatry & Neurology Psychiatry; ATTEND Psychiatry & Neurology Psychiatry
DX: F01.51 Vascular dementia, unspecified severity, with behavioral disturbance (principal); E78.2 Mixed hyperlipidemia; K21.9 Gastro-esophageal reflux disease without esophagitis; N18.9 Chronic kidney disease, unspecified; E11.22 Type 2 diabetes mellitus with diabetic chronic kidney disease; Z83.3 Family history of diabetes mellitus; Z82.49 Family history of ischemic heart disease and other diseases of the circulatory system; I67.2 Cerebral atherosclerosis; I12.9 Hypertensive chronic kidney disease with stage 1 through stage 4 chronic kidney disease, or unspecified chronic kidney disease
CPT/HCPCS: 36415; 80053; 80061; 82962; 83036; 84443; 85025; G0378

== ENCOUNTER 2022-02-14 04:44 | Emergency (ER) | payer MEDICARE ==
[2022-02-14 05:45] LABS: Basophils % (Auto) 0.3 % (0.0-1.8); Eosinophils # (Auto) 0.1 K/mm3 (0.0-0.4); Eosinophils % (Auto) 1.7 % (0.0-4.3); Hematocrit 30.4 % (35.5-45.6); Hemoglobin 10.1 gm/dl (11.8-15.2); Lymphocytes # (Auto) 1.5 K/mm3 (1.2-5.4); Lymphocytes % (Auto) 23.1 % (13.4-35.0); Mean Corpuscular HGB Conc 33 % (32-34); Mean Corpuscular Volume 93 fl (84-94); Monocytes # (Auto) 0.5 K/mm3 (0.0-0.8); Monocytes % (Auto) 8.2 % (0.0-7.3); Platelet Count 185 K/mm3 (140-440); Red Blood Count 3.27 M/mm3 (3.65-5.03); Red Cell Distribution Width 13.9 % (13.2-15.2)
[2022-02-14 06:06] LABS: BUN/Creatinine Ratio 14; Blood Urea Nitrogen 18 mg/dL (9-20); Calcium 9.1 mg/dL (8.4-10.2); Hemolysis Index 6
--- NOTE | 2022-02-14 07:28 | Emergency Department Report ---
ED Psych HPI - General Chief Complaint: Medical Clearance Stated Complaint: ANGRY Time Seen by Provider: 02/14/22 06:53 Source: patient, EMS Mode of arrival: Stretcher - History of Present Illness Initial Comments: 87 YO Male with Vascular Dementia with Behavioral Disturbance, Cerebral Atherosclerosis, HTN, HLD, DM, GERD, CKD, and CAD presents from [facility] for property damage and combative behavior. I spoke to nurse from [facility] who states that patient busted a window, threw a table, and broke a chair. At time of the ED presentation patient is pleasant and cooperative. He is oriented to self and place but not to year. He was initially unclear why he was here but when questioned about his violent outburst and property damage she states he did it because he wanted to see the doctor. Nurse at [facility] states that they were unable to manage his current behavior and is requesting geriatric psych evaluation. Patient denies physical complaints at this time Patient information was not sent to the hospital from [facility] Data Home Medications Medication Instructions Recorded Confirmed Last Taken Amlodipine Besylate [Norvasc] 10 mg PO DAILY 09/07/14 12/27/21 09/06/14 Aspirin [Aspirin BABY CHEW TAB] 81 mg PO DAILY 09/07/14 12/27/21 09/06/14 81 mg lisinopriL [Zestril TAB] 40 mg PO QDAY 09/07/14 12/27/21 09/06/14 AtorvaSTATin [Lipitor] 20 mg PO QHS 09/24/21 12/27/21 Unknown Brimonidine Tartrate [Brimonidine 1 drop OP Q8HR 09/24/21 12/27/21 Unknown Tartrate 0.2%] Cyanocobalamin (Vitamin B-12) 500 mg PO QDAY 09/24/21 12/27/21 Unknown [Vitamin B-12] Fluorometholone [Fml S.O.P. 0.25%] 3.5 gm OP QDAY 09/24/21 12/27/21 Unknown Insulin Aspart Flexpen 12 units SUB-Q ACHS 09/24/21 12/27/21 Unknown Omeprazole 20 mg PO QDAY 09/24/21 12/27/21 Unknown Sertraline [Zoloft] 150 mg PO QDAY 09/24/21 12/27/21 Unknown Sildenafil Citrate 50 mg PO 1XW PRN MDD 1 TAB 09/24/21 12/27/21 Unknown buPROPion HCL [Bupropion Xl] 150 mg PO QDAY 09/24/21 12/27/21 Unknown carvediloL [Coreg] 25 mg PO BID 09/24/21 12/27/21 Unknown Latanoprost 0.005% 1 drop OP QPM 12/27/21 12/27/21 Unknown metFORMIN XR [Glucophage XR] 500 mg PO QDAY 12/27/21 12/27/21 Unknown methazolAMIDE [Methazolamide] 50 mg PO BID 12/27/21 12/27/21 Unknown Previous Rx's Medication Instructions Recorded Last Taken Type Melatonin [Melatonin 5MG TAB] 5 mg PO QHS #30 tablet 01/09/22 Unknown Rx risperiDONE [RisperDAL] 0.5 mg PO QHS #15 01/09/22 Unknown Rx Allergies Allergy/AdvReac Type Severity Reaction Status Date / Time No Known Allergies Allergy Verified 09/23/21 16:39 ED Review of Systems ROS: Stated complaint: ANGRY Other details as noted in HPI Comment: All other systems reviewed and negative ED Past Medical Hx - Past Medical History Hx Hypertension: Yes Hx Diabetes: Yes Hx Dementia: Yes Additional medical history: COVID - Surgical History Additional Surgical History: Unable to obtain this information - Social History Smoking Status: Unknown if ever smoked - Medications Home Medications: Home Medications Medication Instructions Recorded Confirmed Last Taken Type Amlodipine Besylate [Norvasc] 10 mg PO DAILY 09/07/14 12/27/21 09/06/14 History Aspirin [Aspirin BABY CHEW TAB] 81 mg PO DAILY 09/07/14 12/27/21 09/06/14 History 81 mg lisinopriL [Zestril TAB] 40 mg PO QDAY 09/07/14 12/27/21 09/06/14 History AtorvaSTATin [Lipitor] 20 mg PO QHS 09/24/21 12/27/21 Unknown History Brimonidine Tartrate [Brimonidine 1 drop OP Q8HR 09/24/21 12/27/21 Unknown History Tartrate 0.2%] Cyanocobalamin (Vitamin B-12) 500 mg PO QDAY 09/24/21 12/27/21 Unknown History [Vitamin B-12] Fluorometholone [Fml S.O.P. 0.25%] 3.5 gm OP QDAY 09/24/21 12/27/21 Unknown History Insulin Aspart Flexpen 12 units SUB-Q ACHS 09/24/21 12/27/21 Unknown History Omeprazole 20 mg PO QDAY 09/24/21 12/27/21 Unknown History Sertraline [Zoloft] 150 mg PO QDAY 09/24/21 12/27/21 Unknown History Sildenafil Citrate 50 mg PO 1XW PRN MDD 1 TAB 09/24/21 12/27/21 Unknown History buPROPion HCL [Bupropion Xl] 150 mg PO QDAY 09/24/21 12/27/21 Unknown History carvediloL [Coreg] 25 mg PO BID 09/24/21 12/27/21 Unknown History Latanoprost 0.005% 1 drop OP QPM 12/27/21 12/27/21 Unknown History metFORMIN XR [Glucophage XR] 500 mg PO QDAY 12/27/21 12/27/21 Unknown History methazolAMIDE [Methazolamide] 50 mg PO BID 12/27/21 12/27/21 Unknown History Melatonin [Melatonin 5MG TAB] 5 mg PO QHS #30 tablet 01/09/22 Unknown Rx risperiDONE [RisperDAL] 0.5 mg PO QHS #15 01/09/22 Unknown Rx ED Physical Exam - General Limitations: No Limitations - Other Other exam information: General: No acute distress Head: Atraumatic Eyes: normal appearance ENT: Moist mucous membranes Neck: Normal appearance, no midline tenderness Chest: Clear to auscultation bilaterally CV: Regular rate and rhythm Abdomen: Soft, normal bowel sounds, nontender, nondistended, no rebound or guarding Back: Normal inspection Extremity: Normal inspection, full range of motion Neuro: Alert O x 2, no facial asymmetry, speech clear, no gross motor sensory deficit Psych: Appropriate behavior Skin: No rash ED Course Vital Signs 02/14/22 02/14/22 02/14/22 04:45 05:08 05:15 Temperature 98.2 F Pulse Rate 90 83 Respiratory 16 13 14 Rate Blood Pressure 138/70 Blood Pressure 140/78 [Right] O2 Sat by Pulse 97 100 96 Oximetry 02/14/22 02/14/22 02/14/22 05:31 05:45 05:56 Temperature 98.6 F Pulse Rate 83 85 Respiratory 13 16 Rate Blood Pressure 138/70 146/80 Blood Pressure [Right] O2 Sat by Pulse 87 91 98 Oximetry 02/14/22 02/14/22 02/14/22 06:01 06:15 06:31 Temperature Pulse Rate 86 81 83 Respiratory 16 15 15 Rate Blood Pressure 146/80 146/80 146/80 Blood Pressure [Right] O2 Sat by Pulse 99 98 98 Oximetry 02/14/22 02/14/22 02/14/22 06:45 07:01 07:15 Temperature Pulse Rate 83 82 86 Respiratory 16 15 17 Rate Blood Pressure 146/80 146/80 146/80 Blood Pressure [Right] O2 Sat by Pulse 98 98 99 Oximetry 02/14/22 02/14/22 02/14/22 07:31 07:45 08:01 Temperature Pulse Rate 89 79 79 Respiratory 16 12 10 L Rate Blood Pressure 146/80 153/80 153/80 Blood Pressure [Right] O2 Sat by Pulse 98 100 99 Oximetry 02/14/22 02/14/22 02/14/22 08:15 08:31 08:43 Temperature Pulse Rate 97 H 76 75 Respiratory 12 10 L 18 Rate Blood Pressure 153/80 153/80 Blood Pressure 153/90 [Right] O2 Sat by Pulse 100 100 99 Oximetry 02/14/22 02/14/22 02/14/22 08:45 09:01 09:15 Temperature Pulse Rate 75 91 H 73 Respiratory 11 L 17 16 Rate Blood Pressure 153/80 153/80 153/80 Blood Pressure [Right] O2 Sat by Pulse 99 97 100 Oximetry 02/14/22 02/14/22 02/14/22 09:31 09:45 10:01 Temperature Pulse Rate 89 81 74 Respiratory 17 11 L 12 Rate Blood Pressure 153/80 160/92 160/92 Blood Pressure [Right] O2 Sat by Pulse 97 100 99 Oximetry 02/14/22 13:03 Temperature Pulse Rate 68 Respiratory 17 Rate Blood Pressure Blood Pressure 146/86 [Right] O2 Sat by Pulse 99 Oximetry ED Medical Decision Making - Lab Data Result diagrams: 02/14/22 05:13 02/14/22 05:13 Lab Results 02/14/22 02/14/22 02/14/22 Range/Units 05:13 05:13 05:13 WBC 6.4 (4.5-11.0) K/mm3 RBC 3.27 L (3.65-5.03) M/mm3 Hgb 10.1 L (11.8-15.2) gm/dl Hct 30.4 L (35.5-45.6) % MCV 93 (84-94) fl MCH 31 (28-32) pg MCHC 33 (32-34) % RDW 13.9 (13.2-15.2) % Plt Count 185 (140-440) K/mm3 Lymph % (Auto) 23.1 (13.4-35.0) % [place] % (Auto) 8.2 H (0.0-7.3) % Eos % (Auto) 1.7 (0.0-4.3) % Baso % (Auto) 0.3 (0.0-1.8) % Lymph # (Auto) 1.5 (1.2-5.4) K/mm3 [place] # (Auto) 0.5 (0.0-0.8) K/mm3 Eos # (Auto) 0.1 (0.0-0.4) K/mm3 Baso # (Auto) 0.0 (0.0-0.1) K/mm3 Seg Neutrophils % 66.7 (40.0-70.0) % Seg Neutrophils # 4.2 (1.8-7.7) K/mm3 Sodium 145 (137-145) mmol/L Potassium 4.3 (3.6-5.0) mmol/L Chloride 105.3 (98-107) mmol/L Carbon Dioxide 25 (22-30) mmol/L Anion Gap 19 mmol/L BUN 18 (9-20) mg/dL Creatinine 1.3 (0.8-1.3) mg/dL Estimated GFR > 60 ml/min BUN/Creatinine Ratio 14 % Glucose 159 H (75-100) mg/dL POC Glucose (70-105) mg/dL Calcium 9.1 (8.4-10.2) mg/dL Urine Color (Yellow) Urine Turbidity (Clear) Urine pH (5.0-7.0) Ur Specific [place] (1.003-1.030) Urine Protein (Negative) mg/dL Urine Glucose (UA) (Negative) mg/dL Urine Ketones (Negative) mg/dL Urine Blood (Negative) Urine Nitrite (Negative) Urine Bilirubin (Negative) Urine Urobilinogen (<2.0) mg/dL Ur Leukocyte Esterase (Negative) Urine Opiates Screen Urine Methadone Screen Ur Barbiturates Screen Ur Phencyclidine Scrn Ur Amphetamines Screen U Benzodiazepines Scrn Urine Cocaine Screen U Marijuana (THC) Screen Drugs of Abuse Note Plasma/Serum Alcohol < 0.01 (0-0.07) % 02/14/22 02/14/22 02/14/22 Range/Units 11:48 Unknown Unknown WBC (4.5-11.0) K/mm3 RBC (3.65-5.03) M/mm3 Hgb (11.8-15.2) gm/dl Hct (35.5-45.6) % MCV (84-94) fl MCH (28-32) pg MCHC (32-34) % RDW (13.2-15.2) % Plt Count (140-440) K/mm3 Lymph % (Auto) (13.4-35.0) % [place] % (Auto) (0.0-7.3) % Eos % (Auto) (0.0-4.3) % Baso % (Auto) (0.0-1.8) % Lymph # (Auto) (1.2-5.4) K/mm3 [place] # (Auto) (0.0-0.8) K/mm3 Eos # (Auto) (0.0-0.4) K/mm3 Baso # (Auto) (0.0-0.1) K/mm3 Seg Neutrophils % (40.0-70.0) % Seg Neutrophils # (1.8-7.7) K/mm3 Sodium (137-145) mmol/L Potassium (3.6-5.0) mmol/L Chloride (98-107) mmol/L Carbon Dioxide (22-30) mmol/L Anion Gap mmol/L BUN (9-20) mg/dL Creatinine (0.8-1.3) mg/dL Estimated GFR ml/min BUN/Creatinine Ratio % Glucose (75-100) mg/dL POC Glucose 136 H (70-105) mg/dL Calcium (8.4-10.2) mg/dL Urine Color Yellow (Yellow) Urine Turbidity Clear (Clear) Urine pH 5.0 (5.0-7.0) Ur Specific [place] 1.015 (1.003-1.030) Urine Protein 30 mg/dl (Negative) mg/dL Urine Glucose (UA) Negative (Negative) mg/dL Urine Ketones Negative (Negative) mg/dL Urine Blood Negative (Negative) Urine Nitrite Negative (Negative) Urine Bilirubin Negative (Negative) Urine Urobilinogen 1.0 (<2.0) mg/dL Ur Leukocyte Esterase Negative (Negative) Urine Opiates Screen Negative Urine Methadone Screen Negative Ur Barbiturates Screen Negative Ur Phencyclidine Scrn Negative Ur Amphetamines Screen Negative U Benzodiazepines Scrn Negative Urine Cocaine Screen Negative U Marijuana (THC) Screen Negative Drugs of Abuse Note Disclamer Plasma/Serum Alcohol (0-0.07) % - Medical Decision Making Patient has been medically cleared., Cooperative in the ED. Patient was evaluated by mental health and to be admitted to [facility]. Patient prepped for discharge pending [facility] availability Critical Care Time: No Critical care attestation.: If time is entered above; I have spent that time in minutes in the direct care of this critically ill patient, excluding procedure time. ED Disposition Clinical Impression: Dementia with behavioral disturbance, Medical clearance for psychiatric admission Disposition: 01 HOME / SELF CARE / HOMELESS Is pt being admited?: No Condition: Stable Instructions: Dementia, [id number] Additional Instructions: Discharge to [facility]
[2022-02-14 09:11] LABS: Amphetamine Screen,Urine Negative; Benzodiazepines Screen,Urine Negative; Cannabinoid Screen,Urine Negative; Cocaine Screen,Urine Negative; Methadone Screen,Urine Negative; Opiate Screen,Urine Negative
[2022-02-14 12:36] LABS: Bilirubin,Urine Negative (Negative); Blood,Urine Negative (Negative); Color,Urine Yellow (Yellow)
[2022-02-14 13:03] VITALS: BP 146/86
--- NOTE | 2022-02-14 13:17 | Consultation ---
History of Present Illness - Reason for Consult Consult date: 02/14/22 Reason for consult: mental health evaluation - History of Present Psychiatric Illness ED Note: 87 YO Male with Vascular Dementia with Behavioral Disturbance, Cerebral Atherosclerosis, HTN, HLD, DM, GERD, CKD, and CAD presents from [facility] for property damage and combative behavior. I spoke to nurse from [facility] who states that patient busted a window, threw a table, and broke a chair. At time of the ED presentation patient is pleasant and cooperative. He is oriented to self and place but not to year. He was initially unclear why he was here but when questioned about his violent outburst and property damage she states he did it because he wanted to see the doctor. Nurse at [facility] states that they were unable to manage his current behavior and is requesting geriatric psych evaluation. Patient denies physical complaints at this time. The patient was seen today. He is calm, alert and oriented x2. The patient reports having an argument with the staff at the [facility] [place] where he resides; he admits threw a table, and breaking the . The patient denies any current suicidal/homicidal ideation and denies hallucinations. Diagnoses: Dementia Suicide attempts or Self-harm behavior: Denies Prior psychiatric hospitalizations: Yes Substance Abuse history: Denies Previous psychiatric medications tried: Unable to recall PAST MEDICAL HISTORY: Cerebral Atherosclerosis, HTN, HLD, DM, GERD, CKD, and CAD Family Psychiatric History: None reported or documented SOCIAL HISTORY REVIEW OF SYSTEMS Constitutional: Negative for weight loss ENT: Negative for stridor Respiratory: Negative for cough or hemoptysis All other systems reviewed and are negative MENTAL STATUS EXAMINATION General Appearance and Behavior: Age appropriate, good hygiene, wearing appr opriate clothes, calm, cooperative Cooperation: Participating/engaged Psychomotor Behavior: Normal Mood: angry Affect and affective range: congruent with mood Thought Process: Goal directed Thought Content: Reality oriented Speech: Normal volume, Regular rate and rhythm, Suicidal Ideation: Denies Homicidal Ideation: Denies Hallucinations: Denies Delusions: None elicited Impulse Control: Unimpaired Insight and Judgment: Limited insight and judgment, Memory: Normal, Attention: Normal Orientation: Alert, oriented x2 Assessment and Plan (1)Dementia Current Visit: Yes Status: Acute Continue home meds. Treatment Plan The patient needs to follow up with his outpatient psychiatrist and therapist. Continue home meds Disposition: Recommend psychiatric inpatient admission at this time. Will follow. Thanks Case staffed with Dr. Arreguin Medications and Allergies Allergies Allergy/AdvReac Type Severity Reaction Status Date / Time No Known Allergies Allergy Verified 09/23/21 16:39 Home Medications Medication Instructions Recorded Confirmed Last Taken Type Amlodipine Besylate [Norvasc] 10 mg PO DAILY 09/07/14 12/27/21 09/06/14 History Aspirin [Aspirin BABY CHEW TAB] 81 mg PO DAILY 09/07/14 12/27/21 09/06/14 History 81 mg lisinopriL [Zestril TAB] 40 mg PO QDAY 09/07/14 12/27/21 09/06/14 History AtorvaSTATin [Lipitor] 20 mg PO QHS 09/24/21 12/27/21 Unknown History Brimonidine Tartrate [Brimonidine 1 drop OP Q8HR 09/24/21 12/27/21 Unknown History Tartrate 0.2%] Cyanocobalamin (Vitamin B-12) 500 mg PO QDAY 09/24/21 12/27/21 Unknown History [Vitamin B-12] Fluorometholone [Fml S.O.P. 0.25%] 3.5 gm OP QDAY 09/24/21 12/27/21 Unknown History Insulin Aspart Flexpen 12 units SUB-Q ACHS 09/24/21 12/27/21 Unknown History Omeprazole 20 mg PO QDAY 09/24/21 12/27/21 Unknown History Sertraline [Zoloft] 150 mg PO QDAY 09/24/21 12/27/21 Unknown History Sildenafil Citrate 50 mg PO 1XW PRN MDD 1 TAB 09/24/21 12/27/21 Unknown History buPROPion HCL [Bupropion Xl] 150 mg PO QDAY 09/24/21 12/27/21 Unknown History carvediloL [Coreg] 25 mg PO BID 09/24/21 12/27/21 Unknown History Latanoprost 0.005% 1 drop OP QPM 12/27/21 12/27/21 Unknown History metFORMIN XR [Glucophage XR] 500 mg PO QDAY 12/27/21 12/27/21 Unknown History methazolAMIDE [Methazolamide] 50 mg PO BID 12/27/21 12/27/21 Unknown History Melatonin [Melatonin 5MG TAB] 5 mg PO QHS #30 tablet 07/05/22 Unknown Rx risperiDONE [RisperDAL] 0.5 mg PO QHS #15 01/09/22 Unknown Rx Mental Status Exam - Vital signs Last Vital Signs Temp 98.6 F 02/14/22 05:56 Pulse 68 02/14/22 13:03 Resp 17 02/14/22 13:03 BP 146/86 02/14/22 13:03 Pulse Ox 99 02/14/22 13:03 Results Result Diagrams: 02/14/22 05:13 02/14/22 05:13 Abnormal lab results 02/14/22 02/14/22 02/14/22 Range/Units 05:13 05:13 11:48 RBC 3.27 L (3.65-5.03) M/mm3 Hgb 10.1 L (11.8-15.2) gm/dl Hct 30.4 L (35.5-45.6) % [place] % (Auto) 8.2 H (0.0-7.3) % Glucose 159 H (75-100) mg/dL POC Glucose 136 H (70-105) mg/dL All other labs normal.
[2022-02-14] MEDS ORDERED: FLUOROMETHOLONE OP SCH (13:45)
[2022-02-14] MEDS ORDERED: CYANOCOBALAMIN 500 MCG PO SCH (13:45)
[2022-02-14] MEDS ORDERED: NON-FORMULARY EACH (Amlodipine Besylate [Norvasc] 2.5 MG Tablet) PO SCH (13:45)
[2022-02-14] MEDS ORDERED: NON-FORMULARY EACH (Omeprazole [Omeprazole] 20 MG Capsule.Dr) PO SCH (13:45)
[2022-02-14] MEDS ORDERED: METHAZOLAMIDE 50 MG PO SCH (13:45)
[2022-02-14] MEDS ORDERED: amLODIPine 10 MG TAB PO SCH (14:00)
[2022-02-14] MEDS ORDERED: buPROPion XL 150 MG TAB PO SCH (14:00)
[2022-02-14] MEDS ORDERED: ASPIRIN 81 MG TAB CHEW PO SCH (14:00)
[2022-02-14] MEDS ORDERED: metFORMIN XR 500MG TAB PO SCH (14:00)
[2022-02-14] MEDS ORDERED: NON-FORMULARY EACH (Brimonidine Tartrate [Brimonidine Tartrate 0.2%] 15 ML Drops) OP SCH (14:00)
[2022-02-14] MEDS ORDERED: carvediloL 25 MG TAB PO SCH (14:00)
[2022-02-14] MEDS ORDERED: SERTRALINE 50 MG TAB PO SCH (14:00)
[2022-02-14] MEDS ORDERED: CYANOCOBALAMIN (VIT B-12) 1000 MCG TAB PO SCH (14:00)
[2022-02-14] MEDS ORDERED: PANTOPRAZOLE 20 MG TAB PO SCH (14:00)
[2022-02-14 14:57] LABS: Bacteria,Urine TRACE /HPF (Negative)
[2022-02-14] MEDS ORDERED: risperiDONE 1 MG TAB PO SCH (22:00)
[2022-02-14] MEDS ORDERED: MELATONIN 5 MG TAB PO SCH (22:00)
== END 2022-02-14 17:49 | disposition home or self-care (01) ==
LOC: ED 04:44
DX: Z04.6 Encounter for general psychiatric examination, requested by authority (principal); F03.90 Unspecified dementia, unspecified severity, without behavioral disturbance, psychotic disturbance, mood disturbance, and anxiety; Z20.822 Contact with and (suspected) exposure to COVID-19; Z79.899 Other long term (current) drug therapy
CPT/HCPCS: 36415; 80048; 80307; 81001; 82962; 85025; 99285; J3490; U0003; 80320; G0480